=== PATIENT | female | born 1990 | race Caucasian/White ===

== ENCOUNTER 2017-07-30 05:30 | Outpatient (CLI) | payer OTHER ==
[~2017-07-30] VITALS: Ht 170.2 cm; Wt 81.2 kg
[~2017-07-30 05:30] MED LIST: ACHYD1T PO; DCS100C PO; HYDR-3720 PO; IBP800T PO; Ibuprofen PO; KETO-22 PO; NITR-65 PO; NITR100C3 PO; OXYC-109 PO; PRD20T PO; PREN1TAB64 PO; sprintec PO
[2017-07-30] MEDS ORDERED: METH2.5T PO (09:35)
[2017-07-30] MEDS ORDERED: FOLI1TAB24 PO (09:35)
== END 2017-07-30 15:09 ==
LOC: PREOP 05:30
PROVIDERS: ATTEND Otolaryngology Otolaryngology/Facial Plastic Surgery
DX: Z01.818 Encounter for other preprocedural examination (principal)

== ENCOUNTER 2017-08-06 06:44 | Day surgery (SDC) | payer OTHER ==
[~2017-08-06] VITALS: Ht 170.2 cm; Wt 81.2 kg
[~2017-08-06 06:44] MED LIST changes: +FOLI1TAB24 PO; +METH2.5T PO
[2017-08-06 07:00] VITALS: BP 132/86
[2017-08-06] MEDS: LACTATED RINGERS 1,000 ML IV PRN ×2 (07:15→09:27)
[2017-08-06 07:22] LABS: BASOPHILS % (AUTO) 0 % (0-10); EOSINOPHILS # (AUTO) 0.2 10^3/uL (0.0-0.3); EOSINOPHILS % (AUTO) 3 % (0-10); HEMATOCRIT 39 % (35-52); HEMOGLOBIN 13.4 G/DL (11.5-16.0); LYMPHOCYTES % (AUTO) 29 % (12-44); MEAN CORPUSCULAR HEMOGLOBIN 30 PG (25-34); MEAN CORPUSCULAR HGB CONC 35 G/DL (32-36); MEAN CORPUSCULAR VOLUME 86 FL (80-99); MEAN PLATELET VOLUME 9.8 FL (7.4-10.4); MONOCYTES # (AUTO) 0.5 X 10^3 (0.0-1.0); MONOCYTES % (AUTO) 8 % (0-12); NEUTROPHILS # (AUTO) 4.1 X 10^3 (1.8-7.8); NEUTROPHILS % (AUTO) 60 % (42-75); PLATELET COUNT 304 10^3/uL (130-400); RED BLOOD COUNT 4.53 10^6/uL (4.35-5.85); RED CELL DISTRIBUTION WIDTH 13.3 % (10.0-14.5); WHITE BLOOD COUNT 6.8 10^3/uL (4.3-11.0)
[2017-08-06] MEDS ORDERED: FAMOTIDINE 20MG/2ML IV (PEPCID) ONE (07:36)
[2017-08-06] MEDS ORDERED: FAMOTIDINE 20MG/2ML IV (PEPCID) IV ONE (07:45)
[2017-08-06] MEDS ORDERED: morphine INJ 10 MG/ML 1ML (SYR OR VIAL) ONE (07:56)
[2017-08-06] MEDS ORDERED: ONDANSETRON 4 MG/2 ML (SDV) Z0FRAN ONE (08:15)
[2017-08-06] MEDS ORDERED: proPOfol 200 MG/20 ML (DIPRIVAN) VIAL IV ONE (08:15)
[2017-08-06] MEDS ORDERED: DEXAMETHASONE 10 MG/ML (DECADRON) 1 ML VIAL ONE ×2 (08:15→08:18)
[2017-08-06] MEDS ORDERED: ROCURONIUM 50 MG/5 ML (ZEMURON) VIAL IV ONE (08:15)
[2017-08-06] MEDS ORDERED: LIDOCAINE PF 2% 5 ML (XYLOCAINE) VIAL ONE (08:15)
[2017-08-06] MEDS ORDERED: SEVOFLURANE (ULTANE) 15 ML INHAL SOLN ONE (08:15)
[2017-08-06] MEDS ORDERED: MIDAZOLAM 2 MG/2 ML (VERSED) VIAL ONE (08:16)
[2017-08-06] MEDS ORDERED: fentaNYL INJECTION 100 MCG/2 ML AMP ONE (08:16)
--- NOTE | 2017-08-06 08:22 | Progress Note-Pre Operative ---
Pre-Operative Progress Note H&P Reviewed The H&P was reviewed, patient examined and no changes noted. Date Seen by Provider: Aug 06, 2017 Time Seen by Provider: 08:00 Date H&P Reviewed: Aug 06, 2017 Time H&P Reviewed: 08:00 Pre-Operative Diagnosis: Rec Tons CONCHITA MANJARREZ MD Aug 06, 2017 8:22 am
[2017-08-06] MEDS ORDERED: NEOSTIGMINE (BLOXIVERZ ) 1 MG/1ML 10 ML VIAL ONE (08:45)
[2017-08-06] MEDS ORDERED: ONDANSETRON 4 MG/2 ML (SDV) Z0FRAN IVP PRN (08:45)
[2017-08-06] MEDS ORDERED: GLYCOPYRROLATE 0.2 MG/ML (ROBINUL) 2 ML VIAL ONE (08:45)
[2017-08-06] MEDS ORDERED: HYDROmorphone (DILAUDID) 2 MG/ML VIAL IVP PRN (08:45)
[2017-08-06] MEDS ORDERED: NS IV 1000 ML 1,000 ML IV SCH (08:52)
--- NOTE | 2017-08-06 08:52 | Progress Note-Post Operative ---
Post-Operative Progess Note Surgeon (s)/Registered Private Duty Nurse (s) Surgeon CONCHITA MANJARREZ MD Registered Private Duty Nurse n/a Pre-Operative Diagnosis Rec Tons Post-Operative Diagnosis same Post-Op Procedure Note Date of Procedure: Aug 06, 2017 Name of Procedure Performed: T/A Description & Findings Description and Findings: n/a Anesthesia Type get Estimated Blood Loss minimal Packing none. Specimen(s) collected/removed tonsils CONCHITA MANJARREZ MD Aug 06, 2017 8:52 am
[2017-08-06] MEDS ORDERED: APAP 325 MG/10.15 ML LIQ (TYLENOL) UDC PO PRN (09:00)
[2017-08-06] MEDS ORDERED: HYDROcodone/APAP 7.5MG-325 MG/15 ML (LORTAB) UDC PO PRN (09:00)
[2017-08-06] MEDS: morphine INJ 10 MG/ML 1ML (SYR OR VIAL) IVP PRN ×3 (09:11→09:21)
[2017-08-06 09:35] VITALS: BP 157/114
[2017-08-06 09:36] VITALS: BP 157/114
[2017-08-06 10:05] VITALS: BP 153/99
[2017-08-06 10:35] VITALS: BP 130/90
[2017-08-06] MEDS ORDERED: DEXAINTSOL PO (10:58)
[2017-08-06] MEDS ORDERED: AMOX250S5 PO (10:58)
[2017-08-06] MEDS ORDERED: TETRACAINESUCKERS MT (10:58)
[2017-08-06] MEDS ORDERED: HYDR15SO8 PO (11:00)
--- NOTE | 2017-08-06 14:18 | Anesthesia-General Post-Op ---
General Patient Condition Mental Status/LOC: Same as Preop Cardiovascular: Satisfactory Nausea/Vomiting: Absent Respiratory: Satisfactory Pain: Controlled Complications: Absent Post Op Complications Complications None Follow Up Care/Instructions Patient Instructions None needed. Anesthesia/Patient Condition Patient Condition Patient is doing well, no complaints, stable vital signs, no apparent adverse anesthesia problems. No complications reported per nursing. DENNISE ALEJANDRE CRNA Aug 06, 2017 14:18
== END 2017-08-06 11:40 | disposition home or self-care (01) ==
LOC: SDC 06:44
PROVIDERS: ATTEND Otolaryngology Otolaryngology/Facial Plastic Surgery
DX: J35.01 Chronic tonsillitis (principal); Z79.899 Other long term (current) drug therapy
CPT/HCPCS: 36415; 85025; 87081

== ENCOUNTER 2017-08-28 17:05 | Emergency (ER) | payer OTHER ==
[~2017-08-28] VITALS: Ht 167.6 cm; Wt 77.1 kg
[~2017-08-28 17:05] MED LIST changes: +AMOX250S5 PO; +DEXAINTSOL PO; +HYDR15SO8 PO; +TETRACAINESUCKERS MT
[2017-08-28] MEDS ORDERED: LACTATED RINGERS 1,000 ML IV ONE (18:05)
[2017-08-28] MEDS ORDERED: KETOROLAC 30 MG/ML VIAL IVP STA (18:05)
--- NOTE | 2017-08-28 18:12 | ED Abdominal Pain ---
General Chief Complaint: General Problems/Pain Stated Complaint: R SIDE PAIN Nursing Triage Note: PT REPORTS INTERMITTENT R SIDED PAIN JUST UNDER HER BREAST. Sepsis Screen: No Definite Risk Source of Information: Patient History of Present Illness Date Seen by Provider: Aug 28, 2017 Time Seen by Provider: 17:55 Initial Comments C/O RUQ / RIGHT LOWER RIB PAIN SINCE YESTERDAY STATES PAIN IS MILD DULL PAIN WITH INTERMITTENT SHARP STABBING PAINS STATES IT WOKE HER UP A COUPLE OF TIMES DURING THE NIGHT LAST NIGHT NOTHING WORSENS OR IMPROVES PAIN HAS NOT TAKEN ANYTHING FOR PAIN NO NAUSEA/VOMITING NORMAL BM IN LAST 24 HOURS NO URINARY SYMPTOMS NO FEVER NO COUGH/SHORTNESS OF BREATH/RESPIRATORY SYMPTOMS NO HISTORY OF SIMILAR LAST ATE AT 1400 TODAY--MEAT AND CHEESE DRANK TEA ON THE WAY HERE STATES HER BOSS TOLD HER TO "COME HERE AND GET HER GALLBLADDER CHECKED OUT" PCP: DR. DAVIS ENT: DR. MANJARREZ--HAD T&A 3 WEEKS AGO, AND HAD POST OP FOLLOW UP, NO COMPLICATIONS Allergies and Home Medications Allergies Coded Allergies: No Known Drug Allergies (Verified , 04/24/09) Home Medications Amoxicillin 250 Mg/5 Ml Susp, 2 TSP PO BID Prescribed by: CHRISS ROMERO on 08/06/17 1058 Dexamethasone 1 Mg/1 Ml Saira, 2 TSP PO DAILY PRN for PAIN Mix 4MG/2.5CC water Prescribed by: CHRISS ROMERO on 08/06/17 1058 Folic Acid 1 Mg Tablet, 1 MG PO DAILY, (Reported) Hydrocodone/Acetaminophen 15 Ml Solution, 2-3 TSP PO Q4H PRN for PAIN-MILD TO MODERATE 2-3 TSP EVERY 4 HOURS NEEDED FOR PAIN Prescribed by: CHRISS ROMERO on 08/06/17 1100 Hyoscyamine Sulfate 0.125 Mg Tab.subl, 1-2 TAB SL Q4H Prescribed by: BENJAMÍN NUNO on 08/28/171912 Pantoprazole Sodium 40 Mg Tablet.dr, 40 MG PO DAILY Prescribed by: BENJAMÍN NUNO on 08/28/171912 Sucralfate 1 Gm Tablet, 1 GM PO QIDACHS Prescribed by: BENJAMÍN NUNO on 08/28/171912 Tetracaine Sucker Ea, 1 EA MT UD PRN for PAIN Tetracain Suckers These suckers are custom made and require a prescription. Moisten the sucker first and then suck on it gently as far back in the mouth as possible for 2-3 days. You can repeadt it in about an hour. This will take the edge off but not completely numb the throat. Prescribed by: CHRISS ROMERO on 08/06/17 1058 Patient Home Medication List Home Medication List Reviewed: Yes Review of Systems Constitutional: no symptoms reported EENTM: No Symptoms Reported Respiratory: No Symptoms Reported Cardiovascular: No Symptoms Reported Gastrointestinal: See HPI, Abdominal Pain Genitourinary: No Symptoms Reported Musculoskeletal: no symptoms reported Skin: no symptoms reported Psychiatric/Neurological: No Symptoms Reported Endocrine: No Symptoms Reported Hematologic/Lymphatic: No Symptoms Reported Past Riqktlq-Ltqxmt-Xtukka Hx Patient Social History Alcohol Use: Occasionally Uses Recreational Drug Use: No Smoking Status: Never a Smoker 2nd Hand Smoke Exposure: No Recent Foreign Travel: No Contact w/Someone Who Travel: No Recent Infectious Disease Expo: No Recent Hopitalizations: No Immunizations Up To Date Tetanus Booster (TDap): Unknown PED Vaccines UTD: No Seasonal Allergies Seasonal Allergies: No Surgeries History of Surgeries: Yes (Csection x 2, D&C x2, Diag Lap with Lap appy, HYST/ BSO) Surgeries: Abdominal, Adenoidectomy, Appendectomy, Section, Hysterectomy, Oophorectomy, Tonsillectomy Respiratory History of Respiratory Disorde: No Cardiovascular History of Cardiac Disorders: No Neurological History of Neurological Disord: No Reproductive System Hx Reproductive Disorders: Yes Sexually Transmitted Disease: No Female Reproductive Disorders: Menstrual Problems, Endometriosis 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 RHEUMATOID ARTHRITIS) Musculoskeletal Disorders: Rheumatoid Arthritis Endocrine History of Endocrine Disorders: No HEENT History of HEENT Disorders: Yes HEENT Disorders: Tonsilitis Cancer History of Cancer: No Psychosocial History of Psychiatric Problem: No Integumentary History of Skin or Integumenta: No Blood Transfusions History of Blood Disorders: No Family Medical History Family Medial History: Alcoholism 19 FATHER Cardiovascular disease 19 MOTHER Completed stroke G8 BROTHER Dementia Diabetes mellitus G8 BROTHER Hypertension 19 FATHER 19 MOTHER G8 SISTER Thyroid disease 19 MOTHER G8 SISTER No Family History of: AIDS Alzheimer's disease Arthritis Asthma Colon cancer Congenital disease Kidney disease Myocardial infarction Prostate cancer Psychosocial problem Respiratory disorder Seizure disorder Severe allergy Physical Exam Vital Signs VS - Last 72 Hours, by Label 08/28/17 08/28/17 17:30 19:30 Temp 98.0 98.0 Pulse 82 73 Resp 16 16 B/P (MAP) 144/106 (119) 136/101 (119) Pulse Ox 98 98 O2 Delivery Room Air Capillary Refill : Less Than 3 Seconds General Appearance: WD/WN, no apparent distress, other (LAYING OUTSTRETCHED AND TEXTING, DOES NOT APPEAR TO BE IN ANY DISCOMFORT WHATSOEVER. WALKS UPRIGHT AND MOVES QUICKLY WITHOUT ANY DIFFICULTY) HEENT: PERRL/EOMI Neck: normal inspection Respiratory: normal breath sounds, no respiratory distress, no accessory muscle use Cardiovascular: normal peripheral pulses, regular rate, rhythm, no edema, no JVD, no murmur Gastrointestinal: normal bowel sounds, soft, no organomegaly, no pulsatile mass , No distended, No guarding, No rebound, tenderness (RUQ), No mass Extremities: normal range of motion, non-tender, normal inspection, no pedal edema, no calf tenderness, normal capillary refill Back: normal inspection, no CVA tenderness, no vertebral tenderness Neurologic/Psychiatric: manager progressive care II-XII nml as tested, no motor/sensory deficits, alert, normal mood/affect, oriented x 3 Skin: normal color, warm/dry, No rash Progress/Results/Core Measures Results/Orders Lab Results Laboratory Tests Test 08/28/17 18:20 Range/Units White Blood Count 8.6 4.3-11.0 10^3/uL Red Blood Count 4.13 L 4.35-5.85 10^6/uL Hemoglobin 12.1 11.5-16.0 G/DL Hematocrit 35 35-52 % Mean Corpuscular Volume 85 80-99 FL Mean Corpuscular Hemoglobin 29 25-34 PG Mean Corpuscular Hemoglobin Concent 35 32-36 G/DL Red Cell Distribution Width 12.6 10.0-14.5 % Platelet Count 310 130-400 10^3/uL Mean Platelet Volume 10.0 7.4-10.4 FL Neutrophils (%) (Auto) 57 42-75 % Lymphocytes (%) (Auto) 34 12-44 % Monocytes (%) (Auto) 7 0-12 % Eosinophils (%) (Auto) 2 0-10 % Basophils (%) (Auto) 0 0-10 % Neutrophils # (Auto) 4.9 1.8-7.8 X 10^3 Lymphocytes # (Auto) 2.9 1.0-4.0 X 10^3 Monocytes # (Auto) 0.6 0.0-1.0 X 10^3 Eosinophils # (Auto) 0.2 0.0-0.3 10^3/uL Basophils # (Auto) 0.0 0.0-0.1 10^3/uL Urine Color YELLOW Urine Clarity CLEAR Urine pH 7 5-9 Urine Specific [place] 1.010 L 1.016-1.022 Urine Protein NEGATIVE NEGATIVE Urine Glucose (UA) NEGATIVE NEGATIVE Urine Ketones NEGATIVE NEGATIVE Urine Nitrite NEGATIVE NEGATIVE Urine Bilirubin NEGATIVE NEGATIVE Urine Urobilinogen NORMAL NORMAL MG/DL Urine Leukocyte Esterase NEGATIVE NEGATIVE Urine RBC (Auto) NEGATIVE NEGATIVE Urine RBC NONE /HPF Urine WBC RARE /HPF Urine Squamous Epithelial Cells 5-10 /HPF Urine Crystals NONE /LPF Urine Bacteria MODERATE H /HPF Urine Casts NONE /LPF Urine Mucus NEGATIVE /LPF Urine Culture Indicated NO Sodium Level 140 135-145 MMOL/L Potassium Level 3.7 3.6-5.0 MMOL/L Chloride Level 105 98-107 MMOL/L Carbon Dioxide Level 28 21-32 MMOL/L Anion Gap 7 5-14 MMOL/L Blood Urea Nitrogen 11 7-18 MG/DL Creatinine 0.80 0.60-1.30 MG/DL Estimat Glomerular Filtration Rate > 60 BUN/Creatinine Ratio 14 Glucose Level 86 70-105 MG/DL Calcium Level 9.5 8.5-10.1 MG/DL Total Bilirubin 0.4 0.1-1.0 MG/DL Aspartate Amino Transf (AST/SGOT) 21 5-34 U/L Alanine Aminotransferase (ALT/SGPT) 20 0-55 U/L Alkaline Phosphatase 68 40-136 U/L Total Protein 6.9 6.4-8.2 GM/DL Albumin 4.1 3.2-4.5 GM/DL Amylase Level 62 25-125 U/L Lipase 17 8-78 U/L My Orders Orders - BENJAMÍN NUNO DO Saline Lock/Iv-Start (08/28/17 18:05) Amylase (08/28/17 18:05) Cbc With Automated Diff (08/28/17 18:05) Comprehensive Metabolic Panel (08/28/17 18:05) Lipase (08/28/17 18:05) Ct Abdomen/Pelvis W (08/28/17 18:05) Saline Lock/Iv-Start (08/28/17 18:05) Lactated Ringers (Lr 1000 Ml Iv Solution (08/28/17 18:05) Ketorolac Injection (Toradol Injection) (08/28/17 18:05) Iohexol Injection (Omnipaque 350 Mg/Ml 1 (08/28/17 18:30) Sodium Chloride Flush (Catheter Flush Sy (08/28/17 18:30) Ns (Ivpb) (Sodium Chloride 0.9%) (08/28/17 18:30) Pharmacy Communication (Pharmacy Communi (08/28/17 18:19) Ua Culture If Indicated (08/28/17 18:31) Chest Pa/Lat (2 View) (08/28/17 18:48) Medications Given in ED Current Medications Medications Dose Ordered Sig/Mathew Route Start Time Stop Time Status Last Admin Dose Admin Iohexol 100 ml ONCE ONCE IV 08/28/17 18:30 08/28/17 18:31 DC 18 18:49 100 ML Lactated Ringer's 1,000 ml @ 0 mls/hr Q0M ONCE IV 08/28/17 18:05 08/28/17 18:07 DC 08/28/17 18:00 0 MLS/HR Sodium Chloride 10 ml NEEDED PRN IV 08/28/17 18:30 08/28/17 19:31 DC 18 18:49 10 ML Sodium Chloride 250 ml ONCE ONCE IV 08/28/17 18:30 18 18:31 DC 18 18:49 80 ML Vital Signs/I&O Vital Sign - Last 12Hours 08/28/17 08/28/17 17:30 19:30 Temp 98.0 98.0 Pulse 82 73 Resp 16 16 B/P (MAP) 144/106 (119) 136/101 (119) Pulse Ox 98 98 O2 Delivery Room Air Blood Pressure Mean: 119 Diagnostic Imaging Comments CXR--NO ACUTE PROCESS CT ABDOMEN/PELVIS--SLIGHT THICKENING OF GASTRIC ANTRUM AND DUODENUM--POSSIBLE ENTERITIS VS CONTRACTION Departure Impression Impression: Primary Impression: RUQ pain Additional Impression: POSSIBLE ENTERITIS Disposition: 01 HOME, SELF-CARE Condition: Stable Departure-Patient Inst. Referrals: PHILLIP DAVIS MD (PCP/Family) Primary Care Physician Patient Instructions: Acute Abdomen (Belly Pain), Adult (DC), Gastritis (DC), Viral Gastroenteritis, Adult (DC) Add. Discharge Instructions: CLEAR LIQUIDS---WATER, BROTH, JELLO, GATORADE BRATS DIET--BANANAS, RICE, APPLESAUCE, TOAST, SALTINES FOLLOW UP WITH YOUR DR IN 3-5 DAYS FOR FURTHER CARE All discharge instructions reviewed with patient and/or family. Voiced understanding. Scripts Hyoscyamine Sulfate (Levsin-Sl) 0.125 Mg Tab.subl 1-2 TAB SL Q4H for Abdominal Pain, #15 TAB Prov: BENJAMÍN NUNO DO 08/28/17 Sucralfate (Carafate) 1 Gm Tablet 1 GM PO QIDACHS, #60 TAB Prov: BENJAMÍN NUNO DO 08/28/17 Pantoprazole Sodium (Protonix) 40 Mg Tablet.dr 40 MG PO DAILY, #15 TAB Prov: BENJAMÍN NUNO DO 08/28/17 BENJAMÍN NUNO DO Aug 28, 2017 18:12
[2017-08-28] MEDS ORDERED: NS 250 ML (IVPB) BAG IV ONE (18:30)
[2017-08-28] MEDS ORDERED: CATHETER FLUSH 10 ML SYR IV PRN (18:30)
[2017-08-28] MEDS ORDERED: IOHEXOL 350 MG/ML 100 ML (OMNIPAQUE 350) VIAL IV ONE (18:30)
[2017-08-28 18:34] LABS: BASOPHILS % (AUTO) 0 % (0-10); EOSINOPHILS # (AUTO) 0.2 10^3/uL (0.0-0.3); EOSINOPHILS % (AUTO) 2 % (0-10); HEMATOCRIT 35 % (35-52); HEMOGLOBIN 12.1 G/DL (11.5-16.0); LYMPHOCYTES # (AUTO) 2.9 X 10^3 (1.0-4.0); LYMPHOCYTES % (AUTO) 34 % (12-44); MEAN CORPUSCULAR HEMOGLOBIN 29 PG (25-34); MEAN CORPUSCULAR HGB CONC 35 G/DL (32-36); MEAN CORPUSCULAR VOLUME 85 FL (80-99); MONOCYTES # (AUTO) 0.6 X 10^3 (0.0-1.0); MONOCYTES % (AUTO) 7 % (0-12); NEUTROPHILS # (AUTO) 4.9 X 10^3 (1.8-7.8); NEUTROPHILS % (AUTO) 57 % (42-75); PLATELET COUNT 310 10^3/uL (130-400); RED BLOOD COUNT 4.13 10^6/uL (4.35-5.85); RED CELL DISTRIBUTION WIDTH 12.6 % (10.0-14.5); WHITE BLOOD COUNT 8.6 10^3/uL (4.3-11.0)
[2017-08-28 18:36] LABS: BILIRUBIN,URINE NEGATIVE (NEGATIVE); CLARITY,URINE CLEAR; COLOR,URINE YELLOW; GLUCOSE, URINE (UA) NEGATIVE (NEGATIVE); KETONES,URINE NEGATIVE (NEGATIVE); LEUKOCYTE ESTERASE ,URINE NEGATIVE (NEGATIVE); NITRITE,URINE NEGATIVE (NEGATIVE); PH,URINE 7 (5-9); PROTEIN,URINE NEGATIVE (NEGATIVE); UROBILINOGEN,URINE NORMAL (NORMAL)
[2017-08-28 18:45] LABS: BACTERIA,URINE MODERATE /HPF; WBC,URINE RARE /HPF
[2017-08-28 18:57] LABS: ALANINE AMINOTRANSFERASE 20 U/L (0-55); ALBUMIN 4.1 GM/DL (3.2-4.5); ALKALINE PHOSPHATASE 68 U/L (40-136); AMYLASE 62 U/L (25-125); BILIRUBIN,TOTAL 0.4 MG/DL (0.1-1.0); BUN/CREATININE RATIO 14; CALCIUM 9.5 MG/DL (8.5-10.1); CARBON DIOXIDE 28 MMOL/L (21-32); CHLORIDE 105 MMOL/L (98-107); GFR ESTIMATED > 60; GLUCOSE 86 MG/DL (70-105); LIPASE 17 U/L (8-78); POTASSIUM 3.7 MMOL/L (3.6-5.0); SODIUM 140 MMOL/L (135-145); TOTAL PROTEIN 6.9 GM/DL (6.4-8.2)
--- NOTE | 2017-08-28 19:01 | Diagnostic Imaging Report ---
CLINICAL INDICATION: Patient with right upper quadrant pain just below ribs, worsening since yesterday. No chest complaints. EXAM: Chest x-ray PA and lateral views. COMPARISONS: Chest x-ray dated 12/08/2007. FINDINGS: Lungs/pleura: Lungs are clear. There is no pneumothorax. There is no pleural effusion. Mediastinum: Unremarkable. Pulmonary vasculature: Unremarkable. Heart: Unremarkable. Bones/extrathoracic soft tissue: Unremarkable. IMPRESSION: There is no radiographic evidence of acute cardiopulmonary process. Dictated by: Dictated on workstation # [id number]
--- NOTE | 2017-08-28 19:03 | Diagnostic Imaging Report ---
CLINICAL INDICATION: Patient with right upper quadrant pain, worsening since Thursday. Patient has surgical history of hysterectomy, appendectomy, and breast implants. EXAM: CT exam of the abdomen and pelvis is performed with 100 cc of Omnipaque 350 IV contrast. Coronal and sagittal reformatted images are created. COMPARISONS: None. FINDINGS: Visualized lung bases: Unremarkable. Liver: Unremarkable. Gallbladder: Unremarkable. Pancreas: Unremarkable. Spleen: Unremarkable. Adrenal glands: Unremarkable. Kidneys/ ureters: Unremarkable. Aorta: Unremarkable. Intraabdominal/ retroperitoneal contents: Unremarkable. Intestines: There is interval development of bowel wall thickening in the region of the gastric antrum and duodenal C-loop, predominantly in the second portion. These findings are nonspecific and may be related to contraction, but antritis or duodenitis cannot be completely excluded. Appendix: Appendectomy changes are seen. Bladder: Unremarkable. Pelvic organs: Uterus is surgically resected. Extra abdominal/ pelvis regions: Bilateral breast implants are seen. Abdominal wall: Unremarkable. Bones: Unremarkable. IMPRESSION: 1: There is interval bowel wall thickening involving the gastric antrum and duodenal C-loop with the second portion affected the most. These findings may be related to contraction, but antritis or duodenitis cannot be completely excluded. 2: Otherwise, there is no CT evidence of acute abdominal or pelvic process. Dictated by: Dictated on workstation # [id number]
[2017-08-28] MEDS ORDERED: HYOS0.1283 SL (19:13)
[2017-08-28] MEDS ORDERED: PANT40TA2 PO (19:13)
[2017-08-28] MEDS ORDERED: SUCR1TAB36 PO (19:13)
[2017-08-28 19:30] VITALS: BP 136/101
== END 2017-08-28 19:31 | disposition home or self-care (01) ==
LOC: EDUNIT# 17:05 → ER 17:06
DX: R10.11 Right upper quadrant pain (principal); M06.9 Rheumatoid arthritis, unspecified; Z90.710 Acquired absence of both cervix and uterus; Z90.49 Acquired absence of other specified parts of digestive tract; Z87.59 Personal history of other complications of pregnancy, childbirth and the puerperium; Z90.89 Acquired absence of other organs
CPT/HCPCS: 36415; 71046; 74177; 80053; 81000; 82150; 83690; 85025

== ENCOUNTER 2018-06-16 23:15 | Emergency (ER) | payer OTHER ==
[~2018-06-16] VITALS: Ht 170.2 cm; Wt 83.0 kg
[~2018-06-16 23:15] MED LIST changes: +HYOS0.1283 SL; -METH2.5T PO; +MTX2.5T PO; +PANT40TA2 PO; +SUCR1TAB36 PO
--- OUTSIDE RECORDS SUMMARY | 2018-06-16 23:29 | XMS REPORT | CCD ---
Author Author [facility] Address [address] [place] [address] Phone Care Team Providers Care Oil Pumper Name Role Phone PP Unavailable CCM Unavailable Summary Purpose Interface Exchange Insurance Providers Payer name Policy type / Coverage type Covered libertarian ID Effective Begin Date Effective End Date [employer] (2012 THRU) Mian [id number] Unknown Unknown Family history Sister Diagnosis Age At Onset Hypertension Unknown Son Diagnosis Age At Onset No Family Disease Entered N/A Son Diagnosis Age At Onset No Family Disease Entered N/A Father Diagnosis Age At Onset Hypertension Unknown Alcohol use disorders Unknown Brother Diagnosis Age At Onset Diabetes mellitus Type 1 Unknown Mother Diagnosis Age At Onset No Family Disease Entered N/A Social History Social History Element Codes Description Effective Dates Marital status Unknown 07/15/[address]: 952107980 Never smoker 07/15/2013 Alcohol history Unknown occasionally drinks alcohol 07/15/2013 Has the patient ever used illegal drugs? 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 ICD-9: 446.4 ICD-10: M31.30 Active 07/06/2016 Unknown Dyshidrosis [pompholyx] ICD-9: 705.81 ICD-10: L30.1 Active 10/23/2017 Unknown Inflammatory polyarthropathy ICD-9: 714.9 ICD-10: M06.4 Active 10/23/2017 Unknown Localized edema ICD-9 : 782.3 ICD-10: R60.0 Active 10/23/2017 Unknown Body mass index (BMI) 31.0-31.9, adult ICD-9: V85.31 ICD-10: Z68.31 Active 08/30/2015 Unknown Iron deficiency anemia, unspecified ICD-9: 280.9 ICD-10: D50.9 Active 07/06/2016 Unknown Other fatigue ICD-9: 780.79 ICD-10: R53.83 Active 02/03/2016 Unknown Rash and other nonspecific skin eruption ICD-9: 782.1 ICD-10: R21 Active 04/20/2016 Unknown Acute laryngopharyngitis ICD-9: 465.0 ICD-10: J06.0 Active 04/08/2017 Unknown Other allergic rhinitis ICD-9: 477.8 ICD-10: J30.89 Active 04/08/2017 Unknown Streptococcal pharyngitis ICD-9: 034.0 ICD-10: J02.0 Active 08/25/2016 Unknown Major depressive disorder, single episode, moderate ICD-9: 296.22 ICD-10: F32.1 Active 07/06/2016 Unknown Symptomatic postprocedural ovarian failure ICD-9: 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.4 ICD-10: E89.41 Active 07/06/2016 Unknown Other insomnia ICD-9: 327.09 ICD-10: G47.09 Active 02/03/2016 Unknown Major depressive disorder, single episode, unspecified ICD-9: 311 ICD-10: F32.9 Active 12/03/2015 Unknown Symptomatic postprocedural ovarian failure ICD-9: 256.2 ICD-10: E89.41 Active 01/14/2015 Unknown Left knee pain ICD-9: 719.46 Active 03/11/2015 Unknown Depression Unknown Active 01/15/2015 Unknown Abnormal weight gain ICD-9: 783.1 Active 01/14/2015 Unknown Depression ICD-9: 311 Active 01/14/2015 Unknown Fatigue ICD-9: 780.79 Active 01/14/2015 Unknown Premature 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 ICD-9: 256.2 Active 2014 Unknown CELLULITIS OF FACE ICD -9: 682.0 Active 02/21/2014 Unknown Rash ICD-9: 782.1 Active 02/21/2014 Unknown Inflamed skin tag ICD- 9: 701.9 Active 11/15/2013 Unknown Dyshidrotic eczema ICD -9: 705.81 Active 11/10/2013 Unknown ACUTE URI ICD-9: 465.9 Active 07/15/2013 Unknown Problems Condition Codes Effective Dates Condition Status 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 ICD-9: 446.4 ICD-10: M31.30 07/06/2016 Active Dyshidrosis [pompholyx] ICD-9: 705.81 ICD-10: L30.1 10/23/2017 Active Inflammatory polyarthropathy ICD-9: 714.9 ICD-10: M06.4 10/23/2017 Active Localized edema ICD-9 : 782.3 ICD-10: R60.0 10/23/2017 Active Body mass index (BMI) 31.0-31.9, adult ICD-9: V85.31 ICD-10: Z68.31 08/30/2015 Active Iron deficiency anemia, unspecified ICD-9: 280.9 ICD-10: D50.9 07/06/2016 Active Other fatigue ICD-9: 780.79 ICD-10: R53.83 02/03/2016 Active Rash and other nonspecific skin eruption ICD-9: 782.1 ICD-10: R21 04/20/2016 Active Acute laryngopharyngitis ICD-9: 465.0 ICD-10: J06.0 04/08/2017 Active Other allergic rhinitis ICD-9: 477.8 ICD-10: J30.89 04/08/2017 Active Streptococcal pharyngitis ICD-9: 034.0 ICD-10: J02.0 08/25/2016 Active Major depressive disorder, single episode, moderate ICD-9: 296.22 ICD-10: F32.1 07/06/2016 Active Symptomatic postprocedural ovarian failure ICD-9: 627.4 ICD-10: E89.41 07/06/2016 Active Other insomnia ICD-9: 327.09 ICD-10: G47.09 02/03/2016 Active Major depressive disorder, single episode, unspecified ICD-9: 311 ICD-10: F32.9 12/03/2015 Active Symptomatic postprocedural ovarian failure ICD-9: 256.2 ICD-10: E89.41 01/14/2015 Active Left knee pain ICD-9: 719.46 03/11/2015 Active Depression Unknown 01/15/2015 Active Abnormal weight gain ICD-9: 783.1 01/14/2015 Active Depression ICD-9: 311 01/14/2015 Active Fatigue ICD-9: 780.79 01/14/2015 Active Premature 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 ICD-9: 256.2 01/14/2015 Active CELLULITIS OF FACE ICD -9: 682.0 02/21/2014 Active Rash ICD-9: 782.1 02/21/2014 Active Inflamed skin tag ICD- 9: 701.9 11/15/2013 Active Dyshidrotic eczema ICD -9: 705.81 11/10/2013 Active ACUTE URI ICD-9: 465.9 07/15/2013 Active Medications Medication Codes Instructions Start Date Stop Date Status Fill Instructions hydrochlorothiazide 25 mg tablet RxNorm: 351536 1 Tablet(s) PO QDAY PRN 10/30/2017 No Stop Date Active betamethasone dipropionate 0.05 % topical cream RxNorm: 718489 1 Application TOP BID 10/23/2017 11/01/2017 Inactive methotrexate sodium 2.5 mg tablet RxNorm: 075507 6 Tablet(s) PO QW TAKE 6 TABLETS EVERY WEEK ON Thursday07/06/20172018 Active folic acid 1 mg tablet RxNorm: 128738 1 Tablet(s) PO daily 06/30/2018 Active Sprintec (28) 0.25 mg-35 mcg tablet RxNorm: 175151 1 Tablet(s) PO daily 06/17/2017 10/14/2017 Inactive phentermine 37.5 mg tablet RxNorm: 100932 Tablet(s) 1 tab AM and 1/2 tab noon PO 05/14/2017 No Stop Date Active Keflex 500 mg capsule RxNorm: 477545 1 Capsule(s) PO TID 201605/13/2017 Inactive Keflex 500 mg capsule RxNorm: 838902 1 Capsule(s) PO TID 201605/05/2017 Inactive Zithromax Z-Shai 250 mg tablet RxNorm: 915453 1 Tablet(s) PO UD 04/08/2017 05/13/2017 Inactive methotrexate sodium 2.5 mg tablet RxNorm: 022146 TAKE 6 TABLETS EVERY WEEK ON Thursday11/03/2016 05/13/2017 Inactive amoxicillin 500 mg tablet RxNorm: 820446 1 Tablet(s) PO BID 09/03/2016 Inactive Wellbutrin SR 150 mg tablet,sustained-release RxNorm: 050161 1 Tablet(s) PO BID TAKE ONE TABLET BY MOUTH TWICE DAILY 07/07/2016 05/13/2017 Inactive ferrous sulfate 325 mg (65 mg iron) tablet RxNorm: 065775 1 Tablet(s) PO daily TAKE ONE TABLET BY MOUTH ONCE DAILY 07/07/2016 05/13/2017 Inactive methotrexate sodium 2.5 mg tablet RxNorm: 473149 6 Tablet(s) PO QW on Thursday07/07/2016 11/02/2016 Inactive Wellbutrin SR 150 mg tablet,sustained-release RxNorm: 740664 TAKE ONE TABLET BY MOUTH TWICE DAILY 06/10/2016 07/06/2016 Inactive ferrous sulfate 325 mg (65 mg iron) tablet RxNorm: 636514 TAKE ONE TABLET BY MOUTH ONCE DAILY 06/06/2016 07/06/2016 Inactive betamethasone valerate 0.1 % topical cream RxNorm: 306943 1 Application TOP BID 04/21/2016 05/13/2017 Inactive ketoconazole 2 % topical cream RxNorm: 293008 1 Application TOP BID 04/21/2016 05/13/2017 Inactive Wellbutrin SR 150 mg tablet,sustained-release RxNorm: 261861 TAKE ONE TABLET BY MOUTH TWICE DAILY 03/11/2016 04/09/2016 Inactive betamethasone valerate 0.1 % topical cream RxNorm: 375760 1 Application TOP BID 02/27/2016 04/20/2016 Inactive Premarin 0.625 mg tablet RxNorm: 322255 1 Tablet(s) PO daily 02/03/2016 Inactive ferrous sulfate 325 mg (65 mg iron) tablet RxNorm: 283886 1 Tablet(s) PO daily 12/31/2015 04/28/2016 Inactive folic acid 1 mg tablet RxNorm: 529775 1 Tablet(s) PO daily 05/13/2017 Inactive Wellbutrin SR 150 mg tablet,sustained-release RxNorm: 902312 1 Tablet(s) PO BID 12/31/2015 01/29/2016 Inactive triamcinolone acetonide 0.025 % topical cream RxNorm: 8285372 1 Application TOP BID 12/04/2015 05/13/2017 Inactive Topamax 25 mg tablet RxNorm: 790751 1 Tablet(s) PO QHS x 7 days, then notify clinic with how symptoms are 11/05/2015 Inactive Wellbutrin SR 150 mg tablet,sustained-release RxNorm: 389444 1 Tablet(s) PO BID 11/01/2015 11/29/2015 Inactive Topamax 25 mg tablet RxNorm: 345605 1 Tablet(s) PO QHS x 7 days, then notify clinic with how symptoms are 09/26/2015 Inactive ferrous sulfate 325 mg (65 mg iron) tablet RxNorm: 976211 1 Tablet(s) PO daily 09/26/2015 12/30/2015 Inactive Topamax 25 mg tablet RxNorm: 608651 1 Tablet(s) PO daily 201509/25/2015 Inactive Belviq 10 mg tablet RxNorm: 8689858 1 Tablet(s) PO BID 201512/03/2015 Inactive Deplin (algal oil) 15 mg-90.314 mg capsule RxNorm: 1 Capsule(s) PO daily 08/31/2015 12/30/2015 Inactive Wellbutrin 75 mg tablet RxNorm: 333499 1 Tablet(s) PO BID 08/3008/30/2015 Inactive Wellbutrin 75 mg tablet RxNorm: 657558 1 Tablet(s) PO BID 08/3010/31/2015 Inactive methotrexate sodium 2.5 mg tablet RxNorm: 962269 6 Tablet(s) PO QW on Thursday08/22/2015 07/06/2016 Inactive folic acid 1 mg tablet RxNorm: 758310 1 Tablet(s) PO daily 02/201608/30/2015 Inactive ferrous sulfate 325 mg (65 mg iron) tablet RxNorm: 979006 1 Tablet(s) PO daily 08/22/2015 09/25/2015 Inactive folic acid 1 mg tablet RxNorm: 393352 1 Tablet(s) PO daily 02/201608/21/2015 Inactive prednisone 5 mg tablet RxNorm: 133346 1 Tablet(s) PO daily 02/201602/03/2016 Inactive Voltaren 1 % topical gel RxNorm: 326080 2 Gram(s) TOP QID to hands, elbows, knees 07/27/2015 08/25/2015 Inactive ferrous sulfate 325 mg (65 mg iron) tablet RxNorm: 517312 1 Tablet(s) PO daily 07/23/2015 08/21/2015 Inactive ferrous sulfate 325 mg (65 mg iron) tablet RxNorm: 742359 1 Tablet(s) PO daily 05/25/2015 07/22/2015 Inactive prednisone 10 mg tablet RxNorm: 595549 1 Tablet(s) PO UD 201406/07/2015 Inactive 10mg PO daily for 2 weeks, then 5mg PO daily for 2 weeks prednisone 10 mg tablet RxNorm: 749847 1 Tablet(s) PO UD 201405/10/2015 Inactive 10mg PO daily for 2 weeks, then 5mg PO daily for 2 weeks prednisone 20 mg tablet RxNorm: 825360 1 Tablet(s) PO UD 201405/11/2015 Inactive prednisone 20mg daily x 2 days and then 1/2 tab daily x 2 days and then 1/2 QOD x 2 days then stop ferrous sulfate 325 mg (65 mg iron) tablet RxNorm: 391621 1 Tablet(s) PO daily 04/23/2015 04/22/2015 Inactive prednisone 20 mg tablet RxNorm: 210609 1 Tablet(s) PO UD 201404/22/2015 Inactive 3 tab daily x 3 days, 2 tab daily x 3 day, 1 tab daily x 3 days, 1/2 tab daily x 3 days, 1/2 tab every other day x 3 doses then stop ferrous sulfate 325 mg (65 mg iron) tablet RxNorm: 256419 1 Tablet(s) PO daily 04/23/2015 05/24/2015 Inactive prednisone 20 mg tablet RxNorm: 274345 1 Tablet(s) PO UD 201404/26/2015 Inactive 3 tab daily x 3 days, 2 tab daily x 3 day, 1 tab daily x 3 days, 1/2 tab daily x 3 days, 1/2 tab every other day x 3 doses then stop Wellbutrin 75 mg tablet RxNorm: 878170 1 Tablet(s) PO BID 02/0804/18/2015 Inactive Wellbutrin 75 mg tablet RxNorm: 964543 1 Tablet(s) PO BID 02/0802/07/2015 Inactive mupirocin 2 % topical ointment RxNorm: 033264 1 Application TOP TID apply to rash on face 02/21/2014 03/02/2014 Inactive [SAVINGS FOR UNINSURED PATIENTS -- BIN: [id number], PCN: [id number], Group: [id number], ID# [id number], Process claim through [employer] , for questions: . THIS IS NOT INSURANCE.] sulfamethoxazole 800 mg-trimethoprim 160 mg tablet RxNorm: 401872 1 Tablet(s) PO BID 02/21/2014 03/02/2014 Inactive [SAVINGS FOR UNINSURED PATIENTS -- BIN:[id number], PCN: ASPROD1, Group: [id number], ID# [id number], Process claim through [employer], for questions: . THIS IS NOT INSURANCE.] Bactrim DS 800 mg-160 mg tablet RxNorm: 522431 1 Tablet(s) PO BID 11/15/2013 11/21/2013 Inactive triamcinolone acetonide 0.1 % topical cream RxNorm: 7092671 1 Application TOP BID 11/10/2013 11/19/2013 Inactive amoxicillin 500 mg tablet RxNorm: 441396 1 Tablet(s) PO TID 07/14/2013 Inactive amoxicillin 500 mg tablet RxNorm: 633228 1 Tablet(s) PO TID 07/24/2013 Inactive hydrochlorothiazide 25 mg tablet RxNorm: 684630 1 Tablet(s) PO QDAY PRN No Start Date 10/29/2017 Inactive diclofenac sodium 75 mg tablet,delayed release RxNorm: 097082 1 Tablet(s) PO BID No Start Date 07/26/2015 Inactive Zithromax Z-Shai 250 mg tablet RxNorm: 287507 Tablet(s) PO No Start Date 09/25/2015 Inactive phentermine 37.5 mg capsule RxNorm: 104713 1 Capsule(s) PO daily No Start Date 05/13/2017 Inactive Premarin 0.625 mg tablet RxNorm: 470043 1 Tablet(s) PO daily No Start Date 01/07/2016 Inactive Wellbutrin SR 150 mg tablet,sustained-release RxNorm: 682479 1 Tablet(s) PO BID No Start Date 12/30/2015 Inactive Sprintec (28) 0.25 mg-35 mcg tablet RxNorm: 032135 1 Tablet(s) PO daily No Start Date 04/18/2015 Inactive methotrexate sodium 2.5 mg tablet RxNorm: 165145 6 Tablet(s) PO QW on Thursday No Start Date 08/21/2015 Inactive Medication Administered No Medication Administered data Immunizations Vaccine Codes Date Status PPD Unknown 03/12/2015 completed Influenza CVX: 141 07/15/2013 completed Assessments Condition Codes Effective Dates 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 ICD-10: M31.30 ICD-9: 446.4 01/29/2018 Dyshidrosis [pompholyx] ICD-10: L30.1 ICD-9: 705.81 10/23/2017 Localized edema ICD-10: R60.0 ICD-9: 782.3 10/23/2017 Inflammatory polyarthropathy ICD-10: M06.4 ICD-9: 714.9 10/23/2017 Body mass index (BMI) 31.0-31.9, adult ICD-10: Z68.31 ICD-9: V85.31 07/06/2017 Iron deficiency anemia, unspecified ICD-10: D50.9 ICD-9: 280.9 05/14/2017 Other fatigue ICD-10: R53.83 ICD-9: 780.79 05/14/2017 Rash and other nonspecific skin eruption ICD-10: R21 ICD-9: 782.1 05/14/2017 Other allergic rhinitis ICD-10: J30.89 ICD-9: 477.8 04/08/2017 Acute laryngopharyngitis ICD-10: J06.0 ICD-9: 465.0 04/08/2017 Streptococcal pharyngitis ICD-10: J02.0 ICD-9: 034.0 08/25/2016 Symptomatic postprocedural ovarian failure ICD-10: E89.41 ICD-9: 627.4 07/07/2016 Major depressive disorder, single episode, moderate ICD-10: F32.1 ICD-9: 296.22 07/07/2016 Other insomnia ICD-10: G47.09 ICD-9: 327.09 02/04/2016 Major depressive disorder, single episode, unspecified ICD- 10: F32.9 ICD-9: 311 12/04/2015 Symptomatic postprocedural ovarian failure ICD-10: E89.41 ICD-9: 256.2 07/27/2015 Pain in unspecified joint ICD-10: M25.50 ICD-9: 719.49 07/27/2015 Effusion, unspecified joint ICD-10: M25.40 ICD-9: 719.09 07/27/2015 Left knee pain ICD-9: 719.46 03/12/2015 Premature 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 ICD-9: 256.2 01/15/2015 Fatigue ICD-9: 780.79 01/15/2015 Abnormal weight gain ICD-9: 783.1 2014 Depression ICD-9: 311 01/15/2015 Rash ICD-9: 782.1 02/21/2014 CELLULITIS OF FACE ICD-9: 682.0 2013 Inflamed skin tag ICD-9: 701.9 2013 Dyshidrotic eczema ICD-9: 705.81 2013 ACUTE URI ICD-9: 465.9 11/10/2013 Reason For Visit Reason For Visit Effective Dates Notes edema 10/23/2017 depression 05/14/2017 sore throat 04/08/2017 sore throat 08/25/2016 medication follow up 07/07/2016 rash 04/21/2016 rash 02/27/2016 depression 02/04/2016 depression 12/04/2015 depression 11/01/2015 depression 08/31/2015 edema 07/27/2015 edema 04/19/2015 knee pain 03/12/2015 weight gain/obesity 01/15/2015 rash 02/21/2014 bilat wrists and forehead acrochordon (skin tags) 11/15/2013 rash 11/10/2013 sore throat 07/15/2013 Results Observation Observation Code Item Item Code Result Date Cbc With Differential Ord2 WBC 6.14 K/ul 01/29/2018 Cbc With Differential Ord2 RBC 4.16 M/ul 01/29/2018 Cbc With Differential Ord2 HGB 12.0 g/dl 01/29/2018 Cbc With Differential Ord2 Neut% 63.0 % 01/29/2018 Cbc With Differential Ord2 HCT 36.5 % 01/29/2018 Cbc With Differential Ord2 MCV 87.7 fl 01/29/2018 Cbc With Differential Ord2 Lymph% 27.2 % 01/29/2018 Cbc With Differential Ord2 MCH 28.8 pg 01/29/2018 Cbc With Differential Ord2 [place]% 6.0 % 01/29/2018 Cbc With Differential Ord2 MCHC 32.9 pg 01/29/2018 Cbc With Differential Ord2 Eos% 3.6 % 01/29/2018 Cbc With Differential Ord2 PLT 307 K/ul 01/29/2018 Cbc With Differential Ord2 Baso% 0.2 % 01/29/2018 Cbc With Differential Ord2 RDW 13.7 % 01/29/2018 Cbc With Differential Ord2 Neut ABS# 3.87 K/ul 01/29/2018 Cbc With Differential Ord2 Lymph ABS# 1.67 K/ul 01/29/2018 Cbc With Differential Ord2 [place] ABS# 0.4 K/ul 01/29/2018 Cbc With Differential Ord2 Eos ABS# 0.2 K/ul 01/29/2018 Cbc With Differential Ord2 Baso ABS# 0.0 K/ul 01/29/2018 Tsh Ord6 TSH (3rd IS) 1.88 uIU/mL 01/29/2018 Comp Metabolic Scp749 NA 141 mEq/L 01/29/2018 Comp Metabolic Bhn280 K 4.2 mEq/L 01/29/2018 Comp Metabolic Laq901 CL 105 mEq/L 01/29/2018 Comp Metabolic Xmd410 CO2 30.0 mEq/L 01/29/2018 Comp Metabolic Jnl117 ANION GAP 10 01/29/2018 Comp Metabolic Vcv719 GLUCOSE 97 mg/dL 01/29/2018 Comp Metabolic Lbn354 Creat 0.6 mg/dL 01/29/2018 Comp Metabolic Yzx918 eGFR 128 ml/min/1.73m2 01/29/2018 Comp Metabolic Ufg827 BUN 13 mg/dL 01/29/2018 Comp Metabolic Jha306 B/C Ratio 22.0 Ratio 01/29/2018 Comp Metabolic Fjh423 CALCIUM 9.5 mg/dL 01/29/2018 Comp Metabolic Dng740 ALK PHOS 61 U/L 01/29/2018 Comp Metabolic Lek612 AST(SGOT) 14 U/L 01/29/2018 Comp Metabolic Tpl485 ALT(SGPT) 13 U/L 01/29/2018 Comp Metabolic Rci730 BILI T 0.5 mg/dL 01/29/2018 Comp Metabolic Cyk055 ALBUMIN 4.3 g/dL 01/29/2018 Comp Metabolic Fkl892 TPRO 6.8 g/dL 01/29/2018 Comp Metabolic Tvb918 GLOB 2.5 g/dL 01/29/2018 Comp Metabolic Gpc096 A/G Ratio 1.8 Ratio 01/29/2018 Comp Metabolic Qcg069 Osmo 281 mOsmo 01/29/2018 C-Reactive Protein Qnt Crqnt CRP 0.2 mg/dl 01/29/2018 Sed Rate Ord21 ESR 11 mm/hr 01/29/2018 Cbc With Differential Ord2 WBC 9.52 K/ul 10/23/2017 Cbc With Differential Ord2 RBC 4.52 M/ul 10/23/2017 Cbc With Differential Ord2 HGB 13.3 g/dl 10/23/2017 Cbc With Differential Ord2 HCT 39.6 % 10/23/2017 Cbc With Differential Ord2 Neut% 75.4 % 10/23/2017 Cbc With Differential Ord2 MCV 87.6 fl 10/23/2017 Cbc With Differential Ord2 Lymph% 18.3 % 10/23/2017 Cbc With Differential Ord2 [place]% 4.9 % 10/23/2017 Cbc With Differential Ord2 MCH 29.4 pg 10/23/2017 Cbc With Differential Ord2 Eos% 1.4 % 10/23/2017 Cbc With Differential Ord2 MCHC 33.6 pg 10/23/2017 Cbc With Differential Ord2 PLT 372 K/ul 10/23/2017 Cbc With Differential Ord2 Baso% 0.0 % 10/23/2017 Cbc With Differential Ord2 Neut ABS# 7.18 K/ul 10/23/2017 Cbc With Differential Ord2 RDW 14.2 % 10/23/2017 Cbc With Differential Ord2 Lymph ABS# 1.74 K/ul 10/23/2017 Cbc With Differential Ord2 [place] ABS# 0.5 K/ul 10/23/2017 Cbc With Differential Ord2 Eos ABS# 0.1 K/ul 10/23/2017 Cbc With Differential Ord2 Baso ABS# 0.0 K/ul 10/23/2017 C-Reactive Protein Qnt Crqnt CRP 1.2 mg/dl 10/23/2017 Sed Rate Ord21 ESR 15 mm/hr 10/23/2017 Comp Metabolic Bbw451 NA 137 mEq/L 10/23/2017 Comp Metabolic Aaz007 K 3.8 mEq/L 10/23/2017 Comp Metabolic Sdx443 CL 102 mEq/L 10/23/2017 Comp Metabolic Wnq061 CO2 25.0 mEq/L 10/23/2017 Comp Metabolic Usl286 ANION GAP 14 10/23/2017 Comp Metabolic Anm755 GLUCOSE 116 mg/dL 10/23/2017 Comp Metabolic Wgp017 Creat 0.8 mg/dL 10/23/2017 Comp Metabolic Ryh621 eGFR 88 ml/min/1.73m2 10/23/2017 Comp Metabolic Tid610 BUN 11 mg/dL 10/23/2017 Comp Metabolic Xer531 B/C Ratio 13.4 Ratio 10/23/2017 Comp Metabolic Owl142 CALCIUM 9.1 mg/dL 10/23/2017 Comp Metabolic Siv375 ALK PHOS 63 U/L 10/23/2017 Comp Metabolic Uge636 AST(SGOT) 12 U/L 10/23/2017 Comp Metabolic Mzv222 ALT(SGPT) 10 U/L 10/23/2017 Comp Metabolic Wwr073 BILI T 0.4 mg/dL 10/23/2017 Comp Metabolic Yjf989 ALBUMIN 4.1 g/dL 10/23/2017 Comp Metabolic Rid518 TPRO 6.9 g/dL 10/23/2017 Comp Metabolic Mvq787 GLOB 2.8 g/dL 10/23/2017 Comp Metabolic Ryp940 A/G Ratio 1.5 Ratio 10/23/2017 Comp Metabolic Seq932 Osmo 274 mOsmo 10/23/2017 Comp Metabolic Xpf842 NA 138 mEq/L 05/14/2017 Comp Metabolic Psq861 K 3.6 mEq/L 05/14/2017 Comp Metabolic Kpm905 CL 103 mEq/L 05/14/2017 Comp Metabolic Dxb072 CO2 30.0 mEq/L 05/14/2017 Comp Metabolic Brz788 ANION GAP 9 05/14/2017 Comp Metabolic Ybc251 GLUCOSE 113 mg/dL 05/14/2017 Comp Metabolic Hvd604 Creat 0.6 mg/dL 05/14/2017 Comp Metabolic Vcu646 eGFR 124 ml/min/1.73m2 05/14/2017 Comp Metabolic Wwa082 BUN 12 mg/dL 05/14/2017 Comp Metabolic Phx900 B/C Ratio 19.7 Ratio 05/14/2017 Comp Metabolic Nxl606 CALCIUM 9.1 mg/dL 05/14/2017 Comp Metabolic Dsb807 ALK PHOS 61 U/L 05/14/2017 Comp Metabolic Rbz183 AST(SGOT) 14 U/L 05/14/2017 Comp Metabolic Phw550 ALT(SGPT) 11 U/L 05/14/2017 Comp Metabolic Tue867 BILI T 0.4 mg/dL 05/14/2017 Comp Metabolic Liu418 ALBUMIN 4.0 g/dL 05/14/2017 Comp Metabolic Dxc327 TPRO 6.6 g/dL 05/14/2017 Comp Metabolic Pfr416 GLOB 2.6 g/dL 05/14/2017 Comp Metabolic Apm905 A/G Ratio 1.5 Ratio 05/14/2017 Comp Metabolic Rxd521 Osmo 276 mOsmo 05/14/2017 Free T4 Pvl223 FREE T4 0.76 ng/dL 05/14/2017 Tsh Ord6 hTSH II 1.89 uIU/mL 05/14/2017 Cbc With Differential Ord2 WBC 9.18 K/ul 05/14/2017 Cbc With Differential Ord2 RBC 4.36 M/ul 05/14/2017 Cbc With Differential Ord2 HGB 12.6 g/dl 05/14/2017 Cbc With Differential Ord2 Neut% 62.5 % 05/14/2017 Cbc With Differential Ord2 HCT 37.4 % 05/14/2017 Cbc With Differential Ord2 Lymph% 30.0 % 05/14/2017 Cbc With Differential Ord2 MCV 85.8 fl 05/14/2017 Cbc With Differential Ord2 [place]% 5.4 % 05/14/2017 Cbc With Differential Ord2 MCH 28.9 pg 05/14/2017 Cbc With Differential Ord2 Eos% 2.0 % 05/14/2017 Cbc With Differential Ord2 MCHC 33.7 pg 05/14/2017 Cbc With Differential Ord2 Baso% 0.1 % 05/14/2017 Cbc With Differential Ord2 PLT 317 K/ul 05/14/2017 Cbc With Differential Ord2 Neut ABS# 5.74 K/ul 05/14/2017 Cbc With Differential Ord2 RDW 13.9 % 05/14/2017 Cbc With Differential Ord2 Lymph ABS# 2.75 K/ul 05/14/2017 Cbc With Differential Ord2 [place] ABS# 0.5 K/ul 05/14/2017 Cbc With Differential Ord2 Eos ABS# 0.2 K/ul 05/14/2017 Cbc With Differential Ord2 Baso ABS# 0.0 K/ul 05/14/2017 C RAP A SC [id number] Strep A Positive 08/25/2016 Cbc With Differential Ord2 WBC 9.33 K/ul 08/25/2016 Cbc With Differential Ord2 RBC 4.51 M/ul 08/25/2016 Cbc With Differential Ord2 HGB 13.4 g/dl 08/25/2016 Cbc With Differential Ord2 HCT 39.4 % 08/25/2016 Cbc With Differential Ord2 Neut% 72.0 % 08/25/2016 Cbc With Differential Ord2 MCV 87.4 fl 08/25/2016 Cbc With Differential Ord2 Lymph% 17.6 % 08/25/2016 Cbc With Differential Ord2 [place]% 7.6 % 08/25/2016 Cbc With Differential Ord2 MCH 29.7 pg 08/25/2016 Cbc With Differential Ord2 Eos% 2.6 % 08/25/2016 Cbc With Differential Ord2 MCHC 34.0 pg 08/25/2016 Cbc With Differential Ord2 Baso% 0.2 % 08/25/2016 Cbc With Differential Ord2 PLT 269 K/ul 08/25/2016 Cbc With Differential Ord2 Neut ABS# 6.72 K/ul 08/25/2016 Cbc With Differential Ord2 RDW 13.5 % 08/25/2016 Cbc With Differential Ord2 Lymph ABS# 1.64 K/ul 08/25/2016 Cbc With Differential Ord2 [place] ABS# 0.7 K/ul 08/25/2016 Cbc With Differential Ord2 Eos ABS# 0.2 K/ul 08/25/2016 Cbc With Differential Ord2 Baso ABS# 0.0 K/ul 08/25/2016 Cbc With Differential Ord2 WBC 8.21 K/ul 07/04/2016 Cbc With Differential Ord2 RBC 4.03 M/ul 07/04/2016 Cbc With Differential Ord2 HGB 12.2 g/dl 07/04/2016 Cbc With Differential Ord2 Neut% 58.9 % 07/04/2016 Cbc With Differential Ord2 HCT 35.8 % 07/04/2016 Cbc With Differential Ord2 MCV 88.8 fl 07/04/2016 Cbc With Differential Ord2 Lymph% 30.3 % 07/04/2016 Cbc With Differential Ord2 [place]% 7.7 % 07/04/2016 Cbc With Differential Ord2 MCH 30.3 pg 07/04/2016 Cbc With Differential Ord2 MCHC 34.1 pg 07/04/2016 Cbc With Differential Ord2 Eos% 3.0 % 07/04/2016 Cbc With Differential Ord2 Baso% 0.1 % 07/04/2016 Cbc With Differential Ord2 PLT 322 K/ul 07/04/2016 Cbc With Differential Ord2 RDW 14.6 % 07/04/2016 Cbc With Differential Ord2 Neut ABS# 4.83 K/ul 07/04/2016 Cbc With Differential Ord2 Lymph ABS# 2.49 K/ul 07/04/2016 Cbc With Differential Ord2 [place] ABS# 0.6 K/ul 07/04/2016 Cbc With Differential Ord2 Eos ABS# 0.3 K/ul 07/04/2016 Cbc With Differential Ord2 Baso ABS# 0.0 K/ul 07/04/2016 Quantiferon Tb Gold In Tube QUANTIFERON TB GOLD NEGATIVE Quantiferon Tb Gold In Tube CRITERIA 03/03/2016 Quantiferon Tb Gold In Tube NIL VALUE 0.03 IU/mL 03/03/2016 Quantiferon Tb Gold In Tube TB ANTIGEN VALUE 0.06 IU/mL 03/03 Quantiferon Tb Gold In Tube MITOGEN VALUE 2.41 IU/mL 03/03 Quantiferon Tb Gold In Tube TB ANTIGEN- NIL VALUE 0.03 IU/mL 03/03/2016 Quantiferon Tb Gold In Tube INTERPRETATION: 03/03 Cbc With Differential Ord2 WBC 7.56 K/ul 02/28/2016 Cbc With Differential Ord2 RBC 4.32 M/ul 02/28/2016 Cbc With Differential Ord2 HGB 12.4 g/dl 02/28/2016 Cbc With Differential Ord2 HCT 38.2 % 02/28/2016 Cbc With Differential Ord2 Neut% 65.6 % 02/28/2016 Cbc With Differential Ord2 Lymph% 26.6 % 02/28/2016 Cbc With Differential Ord2 MCV 88.4 fl 02/28/2016 Cbc With Differential Ord2 [place]% 4.2 % 02/28/2016 Cbc With Differential Ord2 MCH 28.7 pg 02/28/2016 Cbc With Differential Ord2 Eos% 3.3 % 02/28/2016 Cbc With Differential Ord2 MCHC 32.5 pg 02/28/2016 Cbc With Differential Ord2 PLT 305 K/ul 02/28/2016 Cbc With Differential Ord2 Baso% 0.3 % 02/28/2016 Cbc With Differential Ord2 Neut ABS# 4.96 K/ul 02/28/2016 Cbc With Differential Ord2 RDW 14.8 % 02/28/2016 Cbc With Differential Ord2 Lymph ABS# 2.01 K/ul 02/28/2016 Cbc With Differential Ord2 [place] ABS# 0.3 K/ul 02/28/2016 Cbc With Differential Ord2 Eos ABS# 0.3 K/ul 02/28/2016 Cbc With Differential Ord2 Baso ABS# 0.0 K/ul 02/28/2016 Comp Metabolic Itm784 NA 138 mEq/L 02/28/2016 Comp Metabolic Qza128 K 3.8 mEq/L 02/28/2016 Comp Metabolic Ptl731 CL 103 mEq/L 02/28/2016 Comp Metabolic Tnp072 CO2 31.0 mEq/L 02/28/2016 Comp Metabolic Ehy719 ANION GAP 8 02/28/2016 Comp Metabolic Pmq002 GLUCOSE 83 mg/dL 02/28/2016 Comp Metabolic Gfc574 Creat 0.7 mg/dL 02/28/2016 Comp Metabolic Qwn227 eGFR 106 ml/min/1.73m2 02/28/2016 Comp Metabolic Ibl369 BUN 12 mg/dL 02/28/2016 Comp Metabolic Gmr311 B/C Ratio 17.1 Ratio 02/28/2016 Comp Metabolic Zpp403 CALCIUM 9.7 mg/dL 02/28/2016 Comp Metabolic Wbj660 ALK PHOS 92 U/L 02/28/2016 Comp Metabolic Ove340 AST(SGOT) 14 U/L 02/28/2016 Comp Metabolic Qzm450 ALT(SGPT) 11 U/L 02/28/2016 Comp Metabolic Yfh948 BILI T 0.5 mg/dL 02/28/2016 Comp Metabolic Qsl024 ALBUMIN 4.6 g/dL 02/28/2016 Comp Metabolic Hym959 TPRO 7.1 g/dL 02/28/2016 Comp Metabolic Lnf071 GLOB 2.5 g/dL 02/28/2016 Comp Metabolic Hlr949 A/G Ratio 1.9 Ratio 02/28/2016 Comp Metabolic Mpz804 Osmo 275 mOsmo 02/28/2016 Cbc With Differential Ord2 WBC 8.38 K/ul 01/07/2016 Cbc With Differential Ord2 RBC 4.36 M/ul 01/07/2016 Cbc With Differential Ord2 HGB 12.2 g/dl 01/07/2016 Cbc With Differential Ord2 Neut% 68.1 % 01/07/2016 Cbc With Differential Ord2 HCT 37.1 % 01/07/2016 Cbc With Differential Ord2 Lymph% 23.4 % 01/07/2016 Cbc With Differential Ord2 MCV 85.1 fl 01/07/2016 Cbc With Differential Ord2 [place]% 6.2 % 01/07/2016 Cbc With Differential Ord2 MCH 28.0 pg 01/07/2016 Cbc With Differential Ord2 MCHC 32.9 pg 01/07/2016 Cbc With Differential Ord2 Eos% 2.1 % 01/07/2016 Cbc With Differential Ord2 PLT 342 K/ul 01/07/2016 Cbc With Differential Ord2 Baso% 0.2 % 01/07/2016 Cbc With Differential Ord2 RDW 15.6 % 01/07/2016 Cbc With Differential Ord2 Neut ABS# 5.70 K/ul 01/07/2016 Cbc With Differential Ord2 Lymph ABS# 1.96 K/ul 01/07/2016 Cbc With Differential Ord2 [place] ABS# 0.5 K/ul 01/07/2016 Cbc With Differential Ord2 Eos ABS# 0.2 K/ul 01/07/2016 Cbc With Differential Ord2 Baso ABS# 0.0 K/ul 01/07/2016 Comp Metabolic Hxl573 NA 138 mEq/L 12/04/2015 Comp Metabolic Muc361 K 4.0 mEq/L 12/04/2015 Comp Metabolic Kvi694 CL 104 mEq/L 12/04/2015 Comp Metabolic Uza463 CO2 28.0 mEq/L 12/04/2015 Comp Metabolic Mxv876 ANION GAP 10 12/04/2015 Comp Metabolic Ebx704 GLUCOSE 84 mg/dL 12/04/2015 Comp Metabolic Atb907 Creat 0.8 mg/dL 12/04/2015 Comp Metabolic Yme046 eGFR 89 ml/min/1.73m2 12/04/2015 Comp Metabolic Xhz132 BUN 13 mg/dL 12/04/2015 Comp Metabolic Bym714 B/C Ratio 15.9 Ratio 12/04/2015 Comp Metabolic Ugq790 CALCIUM 9.7 mg/dL 12/04/2015 Comp Metabolic Tkq462 ALK PHOS 109 U/L 12/04/2015 Comp Metabolic Ffh927 AST(SGOT) 15 U/L 12/04/2015 Comp Metabolic Sev787 ALT(SGPT) 11 U/L 12/04/2015 Comp Metabolic Wal426 BILI T 0.4 mg/dL 12/04/2015 Comp Metabolic Idz511 ALBUMIN 4.7 g/dL 12/04/2015 Comp Metabolic Rul877 TPRO 7.5 g/dL 12/04/2015 Comp Metabolic Wkx904 GLOB 2.9 g/dL 12/04/2015 Comp Metabolic Lbf430 A/G Ratio 1.6 Ratio 12/04/2015 Comp Metabolic Wfp122 Osmo 275 mOsmo 12/04/2015 Cbc With Differential Ord2 WBC 7.48 K/ul 12/04/2015 Cbc With Differential Ord2 RBC 4.52 M/ul 12/04/2015 Cbc With Differential Ord2 HGB 12.2 g/dl 12/04/2015 Cbc With Differential Ord2 Neut% 71.6 % 12/04/2015 Cbc With Differential Ord2 HCT 37.9 % 12/04/2015 Cbc With Differential Ord2 MCV 83.8 fl 12/04/2015 Cbc With Differential Ord2 Lymph% 20.7 % 12/04/2015 Cbc With Differential Ord2 [place]% 5.5 % 12/04/2015 Cbc With Differential Ord2 MCH 27.0 pg 12/04/2015 Cbc With Differential Ord2 Eos% 2.1 % 12/04/2015 Cbc With Differential Ord2 MCHC 32.2 pg 12/04/2015 Cbc With Differential Ord2 Baso% 0.1 % 12/04/2015 Cbc With Differential Ord2 PLT 347 K/ul 12/04/2015 Cbc With Differential Ord2 RDW 15.6 % 12/04/2015 Cbc With Differential Ord2 Neut ABS# 5.35 K/ul 12/04/2015 Cbc With Differential Ord2 Lymph ABS# 1.55 K/ul 12/04/2015 Cbc With Differential Ord2 [place] ABS# 0.4 K/ul 12/04/2015 Cbc With Differential Ord2 Eos ABS# 0.2 K/ul 12/04/2015 Cbc With Differential Ord2 Baso ABS# 0.0 K/ul 12/04/2015 Cbc With Differential Ord2 WBC 8.31 K/ul 11/01/2015 Cbc With Differential Ord2 RBC 4.20 M/ul 11/01/2015 Cbc With Differential Ord2 HGB 11.1 g/dl 11/01/2015 Cbc With Differential Ord2 Neut% 71.1 % 11/01/2015 Cbc With Differential Ord2 HCT 34.3 % 11/01/2015 Cbc With Differential Ord2 Lymph% 22.1 % 11/01/2015 Cbc With Differential Ord2 MCV 81.7 fl 11/01/2015 Cbc With Differential Ord2 MCH 26.4 pg 11/01/2015 Cbc With Differential Ord2 [place]% 5.4 % 11/01/2015 Cbc With Differential Ord2 Eos% 1.3 % 11/01/2015 Cbc With Differential Ord2 MCHC 32.4 pg 11/01/2015 Cbc With Differential Ord2 Baso% 0.1 % 11/01/2015 Cbc With Differential Ord2 PLT 420 K/ul 11/01/2015 Cbc With Differential Ord2 RDW 15.5 % 11/01/2015 Cbc With Differential Ord2 Neut ABS# 5.90 K/ul 11/01/2015 Cbc With Differential Ord2 Lymph ABS# 1.84 K/ul 11/01/2015 Cbc With Differential Ord2 [place] ABS# 0.5 K/ul 11/01/2015 Cbc With Differential Ord2 Eos ABS# 0.1 K/ul 11/01/2015 Cbc With Differential Ord2 Baso ABS# 0.0 K/ul 11/01/2015 Cbc With Differential Ord2 New Analyzer Notice Please note new ref ranges starting 06-27-2015 due to implemntation of new five part differential hematolgy analyzer. 11/01/2015 Cbc With Differential Ord2 WBC 8.48 K/ul 08/31/2015 Cbc With Differential Ord2 RBC 4.52 M/ul 08/31/2015 Cbc With Differential Ord2 HGB 11.7 g/dl 08/31/2015 Cbc With Differential Ord2 Neut% 70.6 % 08/31/2015 Cbc With Differential Ord2 HCT 37.2 % 08/31/2015 Cbc With Differential Ord2 Lymph% 19.8 % 08/31/2015 Cbc With Differential Ord2 MCV 82.3 fl 08/31/2015 Cbc With Differential Ord2 [place]% 7.4 % 08/31/2015 Cbc With Differential Ord2 MCH 25.9 pg 08/31/2015 Cbc With Differential Ord2 Eos% 2.0 % 08/31/2015 Cbc With Differential Ord2 MCHC 31.5 pg 08/31/2015 Cbc With Differential Ord2 PLT 393 K/ul 08/31/2015 Cbc With Differential Ord2 Baso% 0.2 % 08/31/2015 Cbc With Differential Ord2 RDW 15.1 % 08/31/2015 Cbc With Differential Ord2 Neut ABS# 5.98 K/ul 08/31/2015 Cbc With Differential Ord2 Lymph ABS# 1.68 K/ul 08/31/2015 Cbc With Differential Ord2 [place] ABS# 0.6 K/ul 08/31/2015 Cbc With Differential Ord2 Eos ABS# 0.2 K/ul 08/31/2015 Cbc With Differential Ord2 Baso ABS# 0.0 K/ul 08/31/2015 Cbc With Differential Ord2 New Analyzer Notice Please note new ref ranges starting 06-27-2015 due to implemntation of new five part differential hematolgy analyzer. 08/31/2015 Comp Metabolic Xlb624 NA 135 mEq/L 08/31/2015 Comp Metabolic Qco139 K 4.3 mEq/L 08/31/2015 Comp Metabolic Hvr260 CL 99 mEq/L 08/31/2015 Comp Metabolic Dez335 CO2 26.0 mEq/L 08/31/2015 Comp Metabolic Ogg750 ANION GAP 14 08/31/2015 Comp Metabolic Wyq287 GLUCOSE 70 mg/dL 08/31/2015 Comp Metabolic Hmo219 Creat 0.7 mg/dL 08/31/2015 Comp Metabolic Iab752 eGFR 116 ml/min/1.73m2 08/31/2015 Comp Metabolic Iel007 BUN 17 mg/dL 08/31/2015 Comp Metabolic Vhs394 B/C Ratio 26.2 Ratio 08/31/2015 Comp Metabolic Ngr364 CALCIUM 9.6 mg/dL 08/31/2015 Comp Metabolic Tkf425 ALK PHOS 90 U/L 08/31/2015 Comp Metabolic Tju988 AST(SGOT) 17 U/L 08/31/2015 Comp Metabolic Hwb892 ALT(SGPT) 23 U/L 08/31/2015 Comp Metabolic Uld666 BILI T 0.4 mg/dL 08/31/2015 Comp Metabolic Jsp125 ALBUMIN 4.2 g/dL 08/31/2015 Comp Metabolic Tbu466 TPRO 7.3 g/dL 08/31/2015 Comp Metabolic Jeg135 GLOB 3.1 g/dL 08/31/2015 Comp Metabolic Vni204 A/G Ratio 1.4 Ratio 08/31/2015 Comp Metabolic Azk350 Osm[place] 270 mOsmo 08/31/2015 [place] Spotted Fever Igg/Igm [id number] [place] SPOTTED FEVER IGM EIA . 05/13/2015 [place] Spotted Fever Igg/Igm [id number] RMSF, IGM 0.32 index 05/13/2015 [place] Spotted Fever Igg/Igm [id number] [place] SPOTTED FEVER IGG EIA FLEX . 05/13/2015 [place] Spotted Fever Igg/Igm [id number] RMSF, IGG SCREEN-FLEX Negative 05/13/2015 Antineutrophil Cytoplasmic Ab [id number] ANTI -PR3 (C-ANCA) 4.0-5.9 EU/mL 05/09/2015 Antineutrophil Cytoplasmic Ab [id number] ANTI -MPO (P-ANCA) >5.9 EU/mL 05/09/2015 Antineutrophil Cytoplasmic Ab [id number] 05/09/2015 Ehrlichia Chaffeensis Antibody Igm [id number] EHRLICHIA CHAFFEENSIS IGM < 1:16 05/09/2015 Lymes Disease Total Antibodies With Western Blot Reflex [id number] B. BURGDORFERI, IGG/IGM 0.12 LI 05/09/2015 Lymes Disease Total Antibodies With Western Blot Reflex [id number] 05/09/2015 Ehrlichia Chaffeensis Antibody Igg [id number] EHRLICHIA CHAFFEENSIS IGG <1:64 05/09/2015 Sjogren'S Ab Anti-Ss-A/-Ss-B [id number] SSA ( Ro) ANTIBODY,IGG 1.3 EU/mL 04/30/2015 Sjogren'S Ab Anti-Ss-A/-Ss-B [id number] SSB ( [place]) ANTIBODY,IGG 1.9 EU/mL 04/30/2015 Fatuma [id number] FATUMA ([place]IL[place]) SCREEN NONE DETECTED 04/30/2015 Anti-Dsdna Antibodies [id number] dsDNA ANTIBODY,IGG <0.1 IU/mL 04/30/2015 Anti-Dsdna Antibodies [id number] 04/30/2015 Anti-Dsdna Antibodies [id number] dsDNA ANTIBODY,IGG TEST NOT PERFORMED IU/mL 04/26/2015 Antineutrophil Cytoplasmic Ab [id number] ANTI -PR3 (C-ANCA) TEST NOT PERFORMED EU/mL 04/26/2015 Antineutrophil Cytoplasmic Ab [id number] ANTI -MPO (P-ANCA) TEST NOT PERFORMED EU/mL 04/26/2015 Sjogren'S Ab Anti-Ss-A/-Ss-B [id number] SSA ( Ro) ANTIBODY,IGG TEST NOT PERFORMED EU/ mL 04/26/2015 Sjogren'S Ab Anti-Ss-A/-Ss-B [id number] SSB ( [place]) ANTIBODY,IGG TEST NOT PERFORMED EU/ mL 04/26/2015 Fatuma [id number] FATUMA ([place]IL[place]) SCREEN TEST NOT PERFORMED 04/26/2015 Actin (Smooth Muscle) Antibody [id number] F- ACTIN ANTIBODY, IGG 8 Units 04/24/2015 Tibc Ord40 Iron 24 ug/dl 04/20/2015 Tibc Ord40 UIBC 225 ug/dL 04/20/2015 Tibc Ord40 TIBC 249 ug/dL 04/20/2015 Tibc Ord40 Fe-%Sat 9.6 % 04/20/2015 Ferritin Ord22 FERRITIN 67.6 ng/mL 04/20/2015 Sed Rate Ord21 ESR 68 mm/hr 04/19/2015 Uric Acid Ord77 Uric A 3.9 mg/dL 04/19/2015 Ra Factor Jsz828 RA FACTOR <10 IU/ml 04/19/2015 C-Reactive Protein Qnt Crqnt CRP 8.7 mg/dl 04/19/2015 Tsh Ord6 hTSH II 1.89 uIU/mL 04/19/2015 Comp Metabolic Xuj513 NA 138 mEq/L 04/19/2015 Comp Metabolic Aar837 K 4.1 mEq/L 04/19/2015 Comp Metabolic Uwo027 CL 102 mEq/L 04/19/2015 Comp Metabolic Szq630 CO2 28.0 mEq/L 04/19/2015 Comp Metabolic Yjl503 ANION GAP 12 04/19/2015 Comp Metabolic Nhm238 GLUCOSE 79 mg/dL 04/19/2015 Comp Metabolic Efs538 Creat 0.6 mg/dL 04/19/2015 Comp Metabolic Jmm964 eGFR 123 ml/min/1.73m2 04/19/2015 Comp Metabolic Wec753 BUN 18 mg/dL 04/19/2015 Comp Metabolic Zer554 B/C Ratio 29.0 Ratio 04/19/2015 Comp Metabolic Wrf359 CALCIUM 9.2 mg/dL 04/19/2015 Comp Metabolic Qrs516 ALK PHOS 84 U/L 04/19/2015 Comp Metabolic Qnt472 AST(SGOT) 27 U/L 04/19/2015 Comp Metabolic Xwl869 ALT(SGPT) 35 U/L 04/19/2015 Comp Metabolic Emu324 BILI T 0.3 mg/dL 04/19/2015 Comp Metabolic Dde631 ALBUMIN 3.8 g/dL 04/19/2015 Comp Metabolic Lwg050 TPRO 6.5 g/dL 04/19/2015 Comp Metabolic Hjr553 GLOB 2.8 g/dL 04/19/2015 Comp Metabolic Fza717 A/G Ratio 1.4 Ratio 04/19/2015 Comp Metabolic Oxd636 Osmo 276 mOsmo 04/19/2015 Cbc With Differential Ord2 WBC 11.1 K/uL 04/19/2015 Cbc With Differential Ord2 LYM 2.2 K/uL 04/19/2015 Cbc With Differential Ord2 L[place]% 19.9 % 04/19/2015 Cbc With Differential Ord2 NEUT/GRAN 8.1 K/uL 04/19/2015 Cbc With Differential Ord2 NEUT/GRAN % 73.3 % 04/19/2015 Cbc With Differential Ord2 MID 0.8 K/uL 04/19/2015 Cbc With Differential Ord2 MID% 6.8 % 04/19/2015 Cbc With Differential Ord2 RBC 3.72 M/uL 04/19/2015 Cbc With Differential Ord2 HGB 10.2 g/dL 04/19/2015 Cbc With Differential Ord2 HCT 31.3 % 04/19/2015 Cbc With Differential Ord2 MCV 84 fL 04/19/2015 Cbc With Differential Ord2 MCH 27 pg 04/19/2015 Cbc With Differential Ord2 MCHC 33 g/dL 04/19/2015 Cbc With Differential Ord2 PLT 454 K/uL 04/19/2015 Cbc With Differential Ord2 RDW 13.3 % 04/19/2015 Tsh Ord6 hTSH II 3.05 uIU/mL 01/15/2015 Comp Metabolic Ntj648 NA 137 mEq/L 01/15/2015 Comp Metabolic Lct585 K 4.3 mEq/L 01/15/2015 Comp Metabolic Vfe390 CL 99 mEq/L 01/15/2015 Comp Metabolic Slv462 CO2 28.0 mEq/L 01/15/2015 Comp Metabolic Smx747 ANION GAP 14 01/15/2015 Comp Metabolic Pnv180 GLUCOSE 76 mg/dL 01/15/2015 Comp Metabolic Bhc704 Creat 0.7 mg/dL 01/15/2015 Comp Metabolic Tik886 eGFR 107 ml/min/1.73m2 01/15/2015 Comp Metabolic Swy684 BUN 12 mg/dL 01/15/2015 Comp Metabolic Pjv894 B/C Ratio 17.1 Ratio 01/15/2015 Comp Metabolic Uvz701 CALCIUM 9.4 mg/dL 01/15/2015 Comp Metabolic Qgt045 ALK PHOS 51 U/L 01/15/2015 Comp Metabolic Hgv082 AST(SGOT) 14 U/L 01/15/2015 Comp Metabolic Nou464 ALT(SGPT) 12 U/L 01/15/2015 Comp Metabolic Tyz055 BILI T 0.3 mg/dL 01/15/2015 Comp Metabolic Vle638 ALBUMIN 4.2 g/dL 01/15/2015 Comp Metabolic Epz052 TPRO 6.8 g/dL 01/15/2015 Comp Metabolic Ndm132 GLOB 2.6 g/dL 01/15/2015 Comp Metabolic Tbp151 A/G Ratio 1.6 Ratio 01/15/2015 Comp Metabolic Nya180 Osmo 272 mOsmo 01/15/2015 Cbc With Differential Ord2 WBC 6.6 K/uL 01/15/2015 Cbc With Differential Ord2 LYM 1.6 K/uL 01/15/2015 Cbc With Differential Ord2 LYM% 24.1 % 01/15/2015 Cbc With Differential Ord2 NEUT/GRAN 4.6 K/uL 01/15/2015 Cbc With Differential Ord2 NEUT/GRAN % 69.0 % 01/15/2015 Cbc With Differential Ord2 MID 0.5 K/uL 01/15/2015 Cbc With Differential Ord2 MID% 6.9 % 01/15/2015 Cbc With Differential Ord2 RBC 4.44 M/uL 01/15/2015 Cbc With Differential Ord2 HGB 12.7 g/dL 01/15/2015 Cbc With Differential Ord2 HCT 37.8 % 01/15/2015 Cbc With Differential Ord2 MCV 85 fL 01/15/2015 Cbc With Differential Ord2 MCH 29 pg 01/15/2015 Cbc With Differential Ord2 MCHC 34 g/dL 01/15/2015 Cbc With Differential Ord2 PLT 265 K/uL 01/15/2015 Cbc With Differential Ord2 RDW 14.0 % 01/15/2015 Review of Systems System Result Effective Dates Constitutional No recent illness 2017 Constitutional fatigue 10/23/2017 Eyes No vision change 10/23/2017 Ears/Nose/Throat/Neck No nasal allergies 10/23/2017 Ears/Nose/Throat/Neck No nasal discharge 10/23/2017 Cardiovascular No chest pain/pressure 04/2018 Cardiovascular No dyspnea 10/23/2017 Respiratory No chest congestion 2017 Respiratory No cough 10/23/2017 Respiratory No dyspnea 10/23/2017 Gastrointestinal No abdominal pain 2017 Dermatologic rash 10/23/2017 Neurologic No alteration of consciousness 10/23/2017 Neurologic No mental status change 2017 Cardiovascular edema 10/23/2017 Genitourinary/Nephrology No dysuria 10/23 Musculoskeletal joint complaint 2017 Musculoskeletal arthralgia(s) 10/23/2017 Musculoskeletal swelling 10/23/2017 Musculoskeletal stiffness 10/23/2017 Psychiatric depression 10/23/2017 Psychiatric anxiety 10/23/2017 Constitutional No recent illness 2016 Constitutional fatigue 05/14/2017 Eyes No vision change 05/14/2017 Ears/Nose/Throat/Neck No nasal allergies 05/14/2017 Ears/Nose/Throat/Neck No nasal discharge 05/14/2017 Cardiovascular No chest pain/pressure Cardiovascular No dyspnea 05/14/2017 Respiratory No chest congestion 2016 Respiratory No cough 05/14/2017 Respiratory No dyspnea 05/14/2017 Gastrointestinal No abdominal pain 2016 Dermatologic rash 05/14/2017 Neurologic No alteration of consciousness 05/14/2017 Neurologic No mental status change 2016 Constitutional recent illness 04/08/2017 Constitutional No chills 04/08/2017 Constitutional No diaphoresis 04/08/2017 Constitutional No fever 04/08/2017 Eyes No eye erythema 04/08/2017 Ears/Nose/Throat/Neck nasal allergies Ears/Nose/Throat/Neck nasal discharge Ears/Nose/Throat/Neck postnasal drip Ears/Nose/Throat/Neck sore throat 2016 Cardiovascular No chest pain/pressure Cardiovascular No dyspnea 04/08/2017 Respiratory No chest congestion 2016 Respiratory cough 04/08/2017 Respiratory No dyspnea 04/08/2017 Gastrointestinal No constipation 2016 Gastrointestinal No diarrhea 04/08/2017 Gastrointestinal No nausea 04/08/2017 Gastrointestinal No vomiting 04/08/2017 Dermatologic No rash 04/08/2017 Neurologic No alteration of consciousness 04/08/2017 Neurologic No mental status change 2016 Ears/Nose/Throat/Neck No sinus congestion 04/08/2017 Constitutional recent illness 08/25/2016 Constitutional No anorexia 08/25/2016 Constitutional No night sweats 2016 Constitutional No chills 08/25/2016 Constitutional diaphoresis 08/25/2016 Constitutional fatigue 08/25/2016 Constitutional fever 08/25/2016 Constitutional No weight loss 08/25/2016 Constitutional No weight gain 08/25/2016 Constitutional No malaise 08/25/2016 Constitutional No insomnia 08/25/2016 Eyes No eye discharge 08/25/2016 Eyes No eye erythema 08/25/2016 Ears/Nose/Throat/Neck No dizziness 2016 Ears/Nose/Throat/Neck No headache 2016 Ears/Nose/Throat/Neck No nasal allergies 08/25/2016 Ears/Nose/Throat/Neck nasal discharge Ears/Nose/Throat/Neck otalgia 08/25/2016 Ears/Nose/Throat/Neck No sinus congestion 08/25/2016 Ears/Nose/Throat/Neck sore throat 2016 Cardiovascular No chest pain/pressure Cardiovascular No dyspnea 08/25/2016 Cardiovascular No edema 08/25/2016 Respiratory No productive sputum 2016 Respiratory No chest congestion 2016 Gastrointestinal No abdominal pain 2016 Gastrointestinal No constipation 2016 Gastrointestinal No diarrhea 08/25/2016 Musculoskeletal No joint complaint 2016 Genitourinary/Nephrology No dysuria 08/25 Dermatologic No rash 08/25/2016 Dermatologic No sores 08/25/2016 Neurologic No alteration of consciousness 08/25/2016 Constitutional No chills 07/07/2016 Constitutional No diaphoresis 07/07/2016 Constitutional fatigue 07/07/2016 Constitutional No fever 07/07/2016 Constitutional No insomnia 07/07/2016 Eyes No vision change 07/07/2016 Ears/Nose/Throat/Neck No nasal allergies 07/07/2016 Ears/Nose/Throat/Neck No nasal discharge 07/07/2016 Ears/Nose/Throat/Neck No sinus congestion 07/07/2016 Cardiovascular No chest pain/pressure Cardiovascular No dyspnea 07/07/2016 Cardiovascular No edema 07/07/2016 Respiratory No cough 07/07/2016 Respiratory No dyspnea 07/07/2016 Gastrointestinal No constipation 2016 Gastrointestinal No diarrhea 07/07/2016 Musculoskeletal No joint complaint 2016 Dermatologic No rash 07/07/2016 Neurologic No alteration of consciousness 07/07/2016 Neurologic No mental status change 2016 Psychiatric No anxiety 07/07/2016 Psychiatric depression 07/07/2016 Constitutional No recent illness 2015 Constitutional fatigue 04/21/2016 Eyes No vision change 04/21/2016 Ears/Nose/Throat/Neck No nasal allergies 04/21/2016 Ears/Nose/Throat/Neck No nasal discharge 04/21/2016 Cardiovascular No chest pain/pressure 12/2015 Cardiovascular No dyspnea 04/21/2016 Respiratory No chest congestion 2015 Respiratory No cough 04/21/2016 Respiratory No dyspnea 04/21/2016 Dermatologic rash 04/21/2016 Neurologic No alteration of consciousness 04/21/2016 Neurologic No mental status change 2015 Constitutional No recent illness 2015 Constitutional fatigue 02/27/2016 Eyes No vision change 02/27/2016 Ears/Nose/Throat/Neck No nasal allergies 02/27/2016 Ears/Nose/Throat/Neck No nasal discharge 02/27/2016 Cardiovascular No chest pain/pressure Cardiovascular No dyspnea 02/27/2016 Respiratory No cough 02/27/2016 Respiratory No dyspnea 02/27/2016 Dermatologic rash 02/27/2016 Neurologic No alteration of consciousness 02/27/2016 Neurologic No mental status change 2015 Respiratory No chest congestion 2015 Gastrointestinal No abdominal pain 2015 Constitutional fatigue 02/04/2016 Eyes No vision change 02/04/2016 Ears/Nose/Throat/Neck No nasal allergies 02/04/2016 Ears/Nose/Throat/Neck No nasal discharge 02/04/2016 Cardiovascular No chest pain/pressure Cardiovascular No dyspnea 02/04/2016 Respiratory No cough 02/04/2016 Respiratory No dyspnea 02/04/2016 Dermatologic No rash 02/04/2016 Neurologic No alteration of consciousness 02/04/2016 Neurologic No mental status change 2015 Psychiatric No anxiety 02/04/2016 Psychiatric depression 02/04/2016 Constitutional No recent illness 2015 Constitutional No chills 12/04/2015 Constitutional No diaphoresis 12/04/2015 Constitutional fatigue 12/04/2015 Constitutional No fever 12/04/2015 Constitutional No insomnia 12/04/2015 Eyes No vision change 12/04/2015 Ears/Nose/Throat/Neck No nasal allergies 12/04/2015 Ears/Nose/Throat/Neck No nasal discharge 12/04/2015 Ears/Nose/Throat/Neck No sinus congestion 12/04/2015 Cardiovascular No chest pain/pressure Cardiovascular No dyspnea 12/04/2015 Respiratory No cough 12/04/2015 Respiratory No dyspnea 12/04/2015 Gastrointestinal No constipation 2015 Gastrointestinal No diarrhea 12/04/2015 Musculoskeletal No joint complaint 2015 Dermatologic No rash 12/04/2015 Neurologic No alteration of consciousness 12/04/2015 Neurologic No mental status change 2015 Psychiatric No anxiety 12/04/2015 Psychiatric depression 12/04/2015 Cardiovascular No edema 12/04/2015 Constitutional No chills 11/01/2015 Constitutional No diaphoresis 11/01/2015 Constitutional fatigue 11/01/2015 Constitutional No fever 11/01/2015 Constitutional No insomnia 11/01/2015 Eyes No vision change 11/01/2015 Ears/Nose/Throat/Neck No nasal allergies 11/01/2015 Ears/Nose/Throat/Neck No nasal discharge 11/01/2015 Cardiovascular No chest pain/pressure Respiratory No chest congestion 2015 Respiratory No cough 11/01/2015 Respiratory No dyspnea 11/01/2015 Gastrointestinal No constipation 2015 Gastrointestinal No diarrhea 11/01/2015 Dermatologic No rash 11/01/2015 Dermatologic No sores 11/01/2015 Psychiatric No anxiety 11/01/2015 Psychiatric depression 11/01/2015 Ears/Nose/Throat/Neck No sinus congestion 11/01/2015 Cardiovascular No dyspnea 11/01/2015 Musculoskeletal No joint complaint 2015 Neurologic No alteration of consciousness 11/01/2015 Neurologic No mental status change 2015 Constitutional No recent illness 2015 Constitutional No anorexia 08/31/2015 Constitutional No night sweats 2015 Constitutional No chills 08/31/2015 Constitutional No diaphoresis 08/31/2015 Constitutional No fatigue 08/31/2015 Constitutional No fever 08/31/2015 Constitutional No insomnia 08/31/2015 Constitutional No malaise 08/31/2015 Constitutional No weight loss 08/31/2015 Constitutional No weight gain 08/31/2015 Constitutional No obesity 08/31/2015 Eyes No vision change 08/31/2015 Dermatologic No sores 08/31/2015 Dermatologic No rash 08/31/2015 Psychiatric No anxiety 08/31/2015 Psychiatric depression 08/31/2015 Cardiovascular No chest pain/pressure Respiratory No cigarette smoking 2015 Respiratory No cough 08/31/2015 Respiratory No chest tightness 2015 Respiratory No chest congestion 2015 Respiratory No dyspnea 08/31/2015 Respiratory No dyspnea on exertion 2015 Gastrointestinal No constipation 2015 Gastrointestinal No diarrhea 08/31/2015 Genitourinary/Nephrology No dysuria 08/30 Ears/Nose/Throat/Neck No nasal allergies 08/31/2015 Ears/Nose/Throat/Neck No nasal discharge 08/31/2015 Ears/Nose/Throat/Neck No headache 2015 Ears/Nose/Throat/Neck No otalgia 2015 Ears/Nose/Throat/Neck No otitis media Ears/Nose/Throat/Neck No sore throat Ears/Nose/Throat/Neck No sinus congestion 08/31/2015 Musculoskeletal No muscle weakness 2015 Musculoskeletal neck pain 08/31/2015 Musculoskeletal No myalgias 08/31/2015 Musculoskeletal No joint complaint 2015 Constitutional No recent illness 2015 Constitutional No anorexia 07/27/2015 Constitutional No night sweats 2015 Constitutional No chills 07/27/2015 Constitutional No diaphoresis 07/27/2015 Constitutional fatigue 07/27/2015 Constitutional No fever 07/27/2015 Constitutional insomnia 07/27/2015 Constitutional No malaise 07/27/2015 Eyes No eye discharge 07/27/2015 Eyes No eye erythema 07/27/2015 Ears/Nose/Throat/Neck No dizziness 2015 Ears/Nose/Throat/Neck No headache 2015 Ears/Nose/Throat/Neck No nasal discharge 07/27/2015 Ears/Nose/Throat/Neck No otalgia 2015 Ears/Nose/Throat/Neck No sinus congestion 07/27/2015 Cardiovascular No chest pain/pressure 05/2016 Cardiovascular No dyspnea 07/27/2015 Cardiovascular edema 07/27/2015 Respiratory No productive sputum 2015 Respiratory No cough 07/27/2015 Gastrointestinal No abdominal pain 2015 Gastrointestinal No constipation 2015 Gastrointestinal No diarrhea 07/27/2015 Genitourinary/Nephrology No dysuria 07/27 Musculoskeletal joint complaint 2015 Dermatologic No rash 07/27/2015 Neurologic No alteration of consciousness 07/27/2015 Psychiatric depression 07/27/2015 Endocrine No dry or coarse skin 2015 Endocrine No hair loss 07/27/2015 Endocrine No sweating 07/27/2015 Endocrine No weakness 07/27/2015 Musculoskeletal stiffness 07/27/2015 Musculoskeletal swelling 07/27/2015 Musculoskeletal arthralgia(s) 07/27/2015 Constitutional No recent illness 2014 Constitutional No anorexia 04/19/2015 Constitutional No night sweats 2014 Constitutional No chills 04/19/2015 Constitutional No diaphoresis 04/19/2015 Constitutional fatigue 04/19/2015 Constitutional No fever 04/19/2015 Constitutional insomnia 04/19/2015 Constitutional No malaise 04/19/2015 Constitutional No weight loss 04/19/2015 Constitutional No weight gain 04/19/2015 Eyes No eye discharge 04/19/2015 Eyes No eye erythema 04/19/2015 Ears/Nose/Throat/Neck No dizziness 2014 Ears/Nose/Throat/Neck No headache 2014 Ears/Nose/Throat/Neck No nasal discharge 04/19/2015 Ears/Nose/Throat/Neck No otalgia 2014 Ears/Nose/Throat/Neck No sinus congestion 04/19/2015 Cardiovascular No chest pain/pressure 10/2014 Cardiovascular No dyspnea 04/19/2015 Respiratory No productive sputum 2014 Respiratory No cough 04/19/2015 Gastrointestinal No abdominal pain 2014 Gastrointestinal No constipation 2014 Gastrointestinal No diarrhea 04/19/2015 Genitourinary/Nephrology No dysuria 04/19 Musculoskeletal joint complaint 2014 Cardiovascular edema 04/19/2015 Dermatologic No rash 04/19/2015 Neurologic No alteration of consciousness 04/19/2015 Psychiatric depression 04/19/2015 Endocrine No dry or coarse skin 2014 Endocrine No hair loss 04/19/2015 Endocrine No sweating 04/19/2015 Endocrine No weakness 04/19/2015 Constitutional No recent illness 2014 Constitutional No anorexia 01/15/2015 Constitutional No night sweats 2014 Constitutional No chills 01/15/2015 Constitutional No diaphoresis 01/15/2015 Constitutional fatigue 01/15/2015 Constitutional No fever 01/15/2015 Constitutional No insomnia 01/15/2015 Constitutional No malaise 01/15/2015 Constitutional No weight loss 01/15/2015 Constitutional weight gain 01/15/2015 Eyes No eye discharge 01/15/2015 Eyes No eye erythema 01/15/2015 Ears/Nose/Throat/Neck No dizziness 2014 Ears/Nose/Throat/Neck headache 2014 Cardiovascular No chest pain/pressure 08/2014 Cardiovascular No edema 01/15/2015 Cardiovascular No dyspnea 01/15/2015 Respiratory No productive sputum 2014 Respiratory No chest congestion 2014 Respiratory No cough 01/15/2015 Gastrointestinal No abdominal pain 2014 Gastrointestinal No constipation 2014 Gastrointestinal No diarrhea 01/15/2015 Genitourinary/Nephrology No dysuria 01/15 Genitourinary/Nephrology menopausal symptoms 01/15/2015 Musculoskeletal No joint complaint 2014 Dermatologic No rash 01/15/2015 Neurologic No alteration of consciousness 01/15/2015 Psychiatric depression 01/15/2015 Endocrine No dry or coarse skin 2014 Endocrine No hair loss 01/15/2015 Hematologic/Lymphatic No abnormal bleeding and bruising 01/15/2015 Constitutional No recent illness 2013 Constitutional No chills 02/21/2014 Constitutional No fatigue 02/21/2014 Constitutional No fever 02/21/2014 Constitutional No insomnia 02/21/2014 Constitutional No malaise 02/21/2014 Respiratory No cough 02/21/2014 Dermatologic rash 02/21/2014 Constitutional No recent illness 2013 Constitutional No anorexia 11/15/2013 Constitutional No night sweats 2013 Constitutional No chills 11/15/2013 Constitutional No diaphoresis 11/15/2013 Constitutional No fatigue 11/15/2013 Constitutional No fever 11/15/2013 Constitutional No insomnia 11/15/2013 Constitutional No malaise 11/15/2013 Constitutional No weight loss 11/15/2013 Constitutional No weight gain 11/15/2013 Constitutional recent illness 11/10/2013 Constitutional No anorexia 11/10/2013 Constitutional No night sweats 2013 Constitutional No chills 11/10/2013 Constitutional No diaphoresis 11/10/2013 Constitutional No fatigue 11/10/2013 Constitutional No fever 11/10/2013 Constitutional No insomnia 11/10/2013 Constitutional No malaise 11/10/2013 Eyes No eye discharge 11/10/2013 Eyes No eye erythema 11/10/2013 Ears/Nose/Throat/Neck No nasal discharge 11/10/2013 Ears/Nose/Throat/Neck No nasal allergies 11/10/2013 Respiratory No cough 11/10/2013 Cardiovascular No chest pain/pressure Gastrointestinal No abdominal pain 2013 Gastrointestinal No constipation 2013 Gastrointestinal No diarrhea 11/10/2013 Genitourinary/Nephrology No dysuria 11/10 Musculoskeletal No joint complaint 2013 Dermatologic rash 11/10/2013 Constitutional recent illness 07/15/2013 Constitutional No anorexia 07/15/2013 Constitutional No night sweats 2013 Constitutional No chills 07/15/2013 Constitutional No diaphoresis 07/15/2013 Constitutional No fatigue 07/15/2013 Constitutional No fever 07/15/2013 Constitutional No insomnia 07/15/2013 Constitutional No malaise 07/15/2013 Eyes No eye discharge 07/15/2013 Eyes No eye erythema 07/15/2013 Cardiovascular No chest pain/pressure Respiratory No cough 07/15/2013 Gastrointestinal No abdominal pain 2013 Gastrointestinal No diarrhea 07/15/2013 Gastrointestinal No constipation 2013 Gastrointestinal No nausea 07/15/2013 Gastrointestinal No vomiting 07/15/2013 Genitourinary/Nephrology No dysuria 07/15 Musculoskeletal No joint complaint 2013 Physical Exam Exam Name System Name Item Name Status Result Effective Dates Notes Full Exam - General 1994 Constitutional general appearance Overall: well developed 10/23/2017 None Full Exam - General 1994 Constitutional general appearance Overall: in no acute distress 10/23/2017 None Full Exam - General 1994 Constitutional general appearance Overall: well nourished 10/23/2017 None Full Exam - General 1994 Eyes conjunctiva /eyelids Overall: conjunctiva clear 10/23/2017 None Full Exam - General 1994 Ears/Nose/Throat lips/teeth/gingiva Overall: benign lips 10/23/2017 None Full Exam - General 1994 Ears/Nose/Throat lips/teeth/gingiva Overall: normal dentition 10/23/2017 None Full Exam - General 1994 Ears/Nose/Throat oral cavity/pharynx/larynx Overall: oral mucosa clear 10/23/2017 None Full Exam - General 1994 Respiratory auscultation Overall: breath sounds clear bilaterally 10/23/2017 None Full Exam - General 1994 Respiratory respiratory effort/rhythm Overall: no retractions 10/23/2017 None Full Exam - General 1994 Respiratory respiratory effort/rhythm Overall: normal rate 10/23/2017 None Full Exam - General 1994 Cardiovascular auscultation of heart Overall: regular rate 10/23/2017 None Full Exam - General 1994 Cardiovascular auscultation of heart Overall: normal heart sounds 10/23/2017 None Full Exam - General 1994 Musculoskeletal head and neck Overall: head atraumatic 10/23/2017 None Full Exam - General 1994 Neurologic cranial nerves Overall: crainial nerves 2 - 12 grossly intact 10/23/2017 None Full Exam - General 1994 Psychiatric orientation/consciousness Overall: oriented to person, place and time 10/23/2017 None Full Exam - General 1994 Psychiatric mood and affect Overall: normal mood and affect 10/23/2017 None Full Exam - General 1994 Psychiatric mood and affect Mood: flat 10/23/2017 None Full Exam - General 1994 Psychiatric appearance Overall: well-groomed, good eye contact 10/23/2017 None Full Exam - General 1994 Constitutional general appearance Overall: well developed 05/14/2017 None Full Exam - General 1994 Constitutional general appearance Overall: in no acute distress 05/14/2017 None Full Exam - General 1994 Constitutional general appearance Overall: well nourished 05/14/2017 None Full Exam - General 1994 Eyes conjunctiva /eyelids Overall: conjunctiva clear 05/14/2017 None Full Exam - General 1994 Ears/Nose/Throat lips/teeth/gingiva Overall: benign lips 05/14/2017 None Full Exam - General 1994 Ears/Nose/Throat lips/teeth/gingiva Overall: normal dentition 05/14/2017 None Full Exam - General 1994 Ears/Nose/Throat oral cavity/pharynx/larynx Overall: oral mucosa clear 05/14/2017 None Full Exam - General 1994 Respiratory auscultation Overall: breath sounds clear bilaterally 05/14/2017 None Full Exam - General 1994 Respiratory respiratory effort/rhythm Overall: no retractions 05/14/2017 None Full Exam - General 1994 Respiratory respiratory effort/rhythm Overall: normal rate 05/14/2017 None Full Exam - General 1994 Cardiovascular auscultation of heart Overall: regular rate 05/14/2017 None Full Exam - General 1994 Cardiovascular auscultation of heart Overall: normal heart sounds 05/14/2017 None Full Exam - General 1994 Musculoskeletal head and neck Overall: head atraumatic 05/14/2017 None Full Exam - General 1994 Neurologic cranial nerves Overall: crainial nerves 2 - 12 grossly intact 05/14/2017 None Full Exam - General 1994 Psychiatric orientation/consciousness Overall: oriented to person, place and time 05/14/2017 None Full Exam - General 1994 Psychiatric mood and affect Overall: normal mood and affect 05/14/2017 None Full Exam - General 1994 Psychiatric mood and affect Mood: flat 05/14/2017 None Full Exam - General 1994 Psychiatric appearance Overall: well-groomed, good eye contact 05/14/2017 None Full Exam - ENT Constitutional general appearance Overall: well nourished 04/08/2017 None Full Exam - ENT Constitutional general appearance Overall: well developed 04/08/2017 None Full Exam - ENT Constitutional general appearance Overall: in no acute distress 04/08/2017 None Full Exam - ENT Ears/Nose/Throat otoscopic exam Overall: external auditory canals normal 04/08/2017 None Full Exam - ENT Ears/Nose/Throat otoscopic exam Left tympanic membrane: air -fluid level 04/08/2017 None Full Exam - ENT Ears/Nose/Throat otoscopic exam Right tympanic membrane: air-fluid level 04/08/2017 None Full Exam - ENT Ears/Nose/Throat lips/ teeth/gingiva Overall: benign lips 04/08/2017 None Full Exam - ENT Ears/Nose/Throat oropharynx Overall: oral mucosa clear 04/08/2017 None Full Exam - ENT Ears/Nose/Throat oropharynx Posterior Pharynx: clear post nasal drainage 04/08/2017 None Full Exam - ENT Ears/Nose/Throat oropharynx Posterior Pharynx: erythema 04/08/2017 None Full Exam - ENT Respiratory inspection Overall: no retractions 04/08/2017 None Full Exam - ENT Respiratory inspection Overall: normal rate None Full Exam - ENT Respiratory auscultation Overall: breath sounds clear bilaterally 04/08/2017 None Full Exam - ENT Cardiovascular auscultation of heart Rate: normal rate 04/08/2017 None Full Exam - ENT Cardiovascular auscultation of heart Rhythm: regular rhythm 04/08/2017 None Full Exam - ENT Lymphatic palpation of lymph nodes Overall: anterior cervical chain benign 04/08/2017 None Full Exam - ENT Lymphatic palpation of lymph nodes Overall: posterior cervical chain benign 04/08/2017 None Full Exam - ENT Neurologic mood and affect Overall: normal mood 04/08/2017 None Full Exam - ENT Neurologic mood and affect Overall: normal affect 04/08/2017 None Full Exam - ENT Neurologic orientation Overall: oriented to person, place and time 04/08/2017 None Full Exam - ENT Ears/Nose/Throat oropharynx Left tonsil: enlarged 04/08/2017 None Full Exam - ENT Ears/Nose/Throat oropharynx Left tonsil: erythematous 04/08/2017 None Full Exam - ENT Ears/Nose/Throat oropharynx Right tonsil: enlarged 04/08/2017 None Full Exam - ENT Ears/Nose/Throat oropharynx Right tonsil: erythematous 04/08/2017 None Full Exam - ENT Constitutional general appearance Overall: well nourished 08/25/2016 None Full Exam - ENT Constitutional general appearance Overall: well developed 08/25/2016 None Full Exam - ENT Constitutional general appearance Overall: in no acute distress 08/25/2016 None Full Exam - ENT Neurologic orientation Overall: oriented to person, place and time 08/25/2016 None Full Exam - ENT Integument inspection of skin Overall: no rash, lesions 08/25/2016 None Full Exam - ENT Lymphatic palpation of lymph nodes Overall: shotty lymphadenopathy 08/25/2016 None Full Exam - ENT Cardiovascular auscultation of heart Overall: normal heart sounds 08/25/2016 None Full Exam - ENT Cardiovascular auscultation of heart Overall: regular rate 08/25/2016 None Full Exam - ENT Respiratory inspection Overall: normal rate None Full Exam - ENT Respiratory inspection Overall: no retractions 08/25/2016 None Full Exam - ENT Respiratory auscultation Overall: breath sounds clear bilaterally 08/25/2016 None Full Exam - ENT Face and Head palpation Overall: no sinus tenderness 08/25/2016 None Full Exam - ENT Ears/Nose/Throat otoscopic exam Overall: tympanic membranes normal 08/25/2016 None Full Exam - ENT Ears/Nose/Throat otoscopic exam Overall: external auditory canals normal 08/25/2016 None Full Exam - ENT Ears/Nose/Throat oropharynx Left tonsil: enlarged 08/25/2016 None Full Exam - ENT Ears/Nose/Throat oropharynx Left tonsil: exudate 08/25/2016 None Full Exam - ENT Ears/Nose/Throat oropharynx Left tonsil: erythematous 08/25/2016 None Full Exam - ENT Ears/Nose/Throat oropharynx Right tonsil: enlarged 08/25/2016 None Full Exam - ENT Ears/Nose/Throat oropharynx Right tonsil: exudate 08/25/2016 None Full Exam - ENT Ears/Nose/Throat oropharynx Right tonsil: erythematous 08/25/2016 None Full Exam - ENT Ears/Nose/Throat oropharynx Posterior Pharynx: erythema 08/25/2016 None Full Exam - General 1994 Constitutional general appearance Overall: well developed 07/07/2016 None Full Exam - General 1994 Constitutional general appearance Overall: in no acute distress 07/07/2016 None Full Exam - General 1994 Constitutional general appearance Overall: well nourished 07/07/2016 None Full Exam - General 1994 Eyes conjunctiva /eyelids Overall: conjunctiva clear 07/07/2016 None Full Exam - General 1994 Eyes pupils and irises Overall: pupils equal, round, reactive to light and accomodation 07/07/2016 None Full Exam - General 1994 Respiratory auscultation Overall: breath sounds clear bilaterally 07/07/2016 None Full Exam - General 1994 Respiratory respiratory effort/rhythm Overall: no retractions 07/07/2016 None Full Exam - General 1994 Respiratory respiratory effort/rhythm Overall: normal rate 07/07/2016 None Full Exam - General 1994 Cardiovascular auscultation of heart Overall: regular rate 07/07/2016 None Full Exam - General 1994 Cardiovascular auscultation of heart Overall: normal heart sounds 07/07/2016 None Full Exam - General 1994 Musculoskeletal head and neck Overall: head atraumatic 07/07/2016 None Full Exam - General 1994 Integument inspection of skin Overall: no rash, lesions 07/07/2016 None Full Exam - General 1994 Neurologic cranial nerves Overall: crainial nerves 2 - 12 grossly intact 07/07/2016 None Full Exam - General 1994 Psychiatric orientation/consciousness Overall: oriented to person, place and time 07/07/2016 None Full Exam - General 1994 Psychiatric appearance Overall: well-groomed, good eye contact 07/07/2016 None Full Exam - General 1994 Psychiatric speech Overall: normal quality, no aphasia 07/07/2016 None Full Exam - General 1994 Psychiatric speech Overall: normal quality, quantity, rate 07/07/2016 None Full Exam - General 1994 Constitutional general appearance Overall: well developed 04/21/2016 None Full Exam - General 1994 Constitutional general appearance Overall: in no acute distress 04/21/2016 None Full Exam - General 1994 Constitutional general appearance Overall: well nourished 04/21/2016 None Full Exam - General 1994 Eyes conjunctiva /eyelids Overall: conjunctiva clear 04/21/2016 None Full Exam - General 1994 Ears/Nose/Throat lips/teeth/gingiva Overall: benign lips 04/21/2016 None Full Exam - General 1994 Ears/Nose/Throat lips/teeth/gingiva Overall: normal dentition 04/21/2016 None Full Exam - General 1994 Respiratory respiratory effort/rhythm Overall: no retractions 04/21/2016 None Full Exam - General 1994 Respiratory respiratory effort/rhythm Overall: normal rate 04/21/2016 None Full Exam - General 1994 Musculoskeletal head and neck Overall: head atraumatic 04/21/2016 None Full Exam - General 1994 Integument inspection of skin Location: left hand 04/21/2016 None Full Exam - General 1994 Integument inspection of skin Location: right hand 04/21/2016 None Full Exam - General 1994 Integument inspection of skin Rash/Lesions: patch 04/21/2016 None Full Exam - General 1994 Integument inspection of skin Pigmentation: erythematous 04/21/2016 None Full Exam - General 1994 Integument inspection of skin Consistency: dry 04/21/2016 None Full Exam - General 1994 Neurologic cranial nerves Overall: crainial nerves 2 - 12 grossly intact 04/21/2016 None Full Exam - General 1994 Psychiatric orientation/consciousness Overall: oriented to person, place and time 04/21/2016 None Full Exam - General 1994 Psychiatric mood and affect Overall: normal mood and affect 04/21/2016 None Full Exam - General 1994 Psychiatric mood and affect Mood: flat 04/21/2016 None Full Exam - General 1994 Psychiatric appearance Overall: well-groomed, good eye contact 04/21/2016 None Full Exam - General 1994 Constitutional general appearance Overall: well developed 02/27/2016 None Full Exam - General 1994 Constitutional general appearance Overall: in no acute distress 02/27/2016 None Full Exam - General 1994 Constitutional general appearance Overall: well nourished 02/27/2016 None Full Exam - General 1994 Eyes conjunctiva /eyelids Overall: conjunctiva clear 02/27/2016 None Full Exam - General 1994 Ears/Nose/Throat lips/teeth/gingiva Overall: benign lips 02/27/2016 None Full Exam - General 1994 Ears/Nose/Throat lips/teeth/gingiva Overall: normal dentition 02/27/2016 None Full Exam - General 1994 Respiratory auscultation Overall: breath sounds clear bilaterally 02/27/2016 None Full Exam - General 1994 Respiratory respiratory effort/rhythm Overall: no retractions 02/27/2016 None Full Exam - General 1994 Respiratory respiratory effort/rhythm Overall: normal rate 02/27/2016 None Full Exam - General 1994 Cardiovascular auscultation of heart Overall: regular rate 02/27/2016 None Full Exam - General 1994 Cardiovascular auscultation of heart Overall: normal heart sounds 02/27/2016 None Full Exam - General 1994 Musculoskeletal head and neck Overall: head atraumatic 02/27/2016 None Full Exam - General 1994 Neurologic cranial nerves Overall: crainial nerves 2 - 12 grossly intact 02/27/2016 None Full Exam - General 1994 Psychiatric orientation/consciousness Overall: oriented to person, place and time 02/27/2016 None Full Exam - General 1994 Psychiatric appearance Overall: well-groomed, good eye contact 02/27/2016 None Full Exam - General 1994 Ears/Nose/Throat oral cavity/pharynx/larynx Overall: oral mucosa clear 02/27/2016 None Full Exam - General 1994 Integument inspection of skin Location: left hand 02/27/2016 None Full Exam - General 1994 Integument inspection of skin Location: right hand 02/27/2016 None Full Exam - General 1994 Integument inspection of skin Rash/Lesions: patch 02/27/2016 None Full Exam - General 1994 Integument inspection of skin Pigmentation: erythematous 02/27/2016 None Full Exam - General 1994 Integument inspection of skin Consistency: dry 02/27/2016 None Full Exam - General 1994 Psychiatric mood and affect Overall: normal mood and affect 02/27/2016 None Full Exam - General 1994 Psychiatric mood and affect Mood: flat 02/27/2016 None Full Exam - General 1994 Constitutional general appearance Overall: well developed 02/04/2016 None Full Exam - General 1994 Constitutional general appearance Overall: in no acute distress 02/04/2016 None Full Exam - General 1994 Constitutional general appearance Overall: well nourished 02/04/2016 None Full Exam - General 1994 Eyes conjunctiva /eyelids Overall: conjunctiva clear 02/04/2016 None Full Exam - General 1994 Eyes pupils and irises Overall: pupils equal, round, reactive to light and accomodation 02/04/2016 None Full Exam - General 1994 Respiratory auscultation Overall: breath sounds clear bilaterally 02/04/2016 None Full Exam - General 1994 Respiratory respiratory effort/rhythm Overall: no retractions 02/04/2016 None Full Exam - General 1994 Respiratory respiratory effort/rhythm Overall: normal rate 02/04/2016 None Full Exam - General 1994 Cardiovascular auscultation of heart Overall: regular rate 02/04/2016 None Full Exam - General 1994 Cardiovascular auscultation of heart Overall: normal heart sounds 02/04/2016 None Full Exam - General 1994 Musculoskeletal head and neck Overall: head atraumatic 02/04/2016 None Full Exam - General 1994 Integument inspection of skin Overall: no rash, lesions 02/04/2016 None Full Exam - General 1994 Neurologic cranial nerves Overall: crainial nerves 2 - 12 grossly intact 02/04/2016 None Full Exam - General 1994 Psychiatric orientation/consciousness Overall: oriented to person, place and time 02/04/2016 None Full Exam - General 1994 Psychiatric mood and affect Mood: depressed 02/04/2016 None Full Exam - General 1994 Psychiatric appearance Overall: well-groomed, good eye contact 02/04/2016 None Full Exam - General 1994 Psychiatric speech Overall: normal quality, no aphasia 02/04/2016 None Full Exam - General 1994 Psychiatric speech Overall: normal quality, quantity, rate 02/04/2016 None Full Exam - General 1994 Constitutional general appearance Evidence of Distress: tearful 02/04/2016 None Full Exam - General 1994 Ears/Nose/Throat lips/teeth/gingiva Overall: benign lips 02/04/2016 None Full Exam - General 1994 Ears/Nose/Throat lips/teeth/gingiva Overall: normal dentition 02/04/2016 None Full Exam - General 1994 Constitutional general appearance Overall: well developed 12/04/2015 None Full Exam - General 1994 Constitutional general appearance Overall: in no acute distress 12/04/2015 None Full Exam - General 1994 Constitutional general appearance Overall: well nourished 12/04/2015 None Full Exam - General 1994 Eyes conjunctiva /eyelids Overall: conjunctiva clear 12/04/2015 None Full Exam - General 1994 Eyes pupils and irises Overall: pupils equal, round, reactive to light and accomodation 12/04/2015 None Full Exam - General 1994 Respiratory auscultation Overall: breath sounds clear bilaterally 12/04/2015 None Full Exam - General 1994 Respiratory respiratory effort/rhythm Overall: no retractions 12/04/2015 None Full Exam - General 1994 Respiratory respiratory effort/rhythm Overall: normal rate 12/04/2015 None Full Exam - General 1994 Cardiovascular auscultation of heart Overall: regular rate 12/04/2015 None Full Exam - General 1994 Cardiovascular auscultation of heart Overall: normal heart sounds 12/04/2015 None Full Exam - General 1994 Integument inspection of skin Overall: no rash, lesions 12/04/2015 None Full Exam - General 1994 Neurologic cranial nerves Overall: crainial nerves 2 - 12 grossly intact 12/04/2015 None Full Exam - General 1994 Psychiatric orientation/consciousness Overall: oriented to person, place and time 12/04/2015 None Full Exam - General 1994 Psychiatric mood and affect Mood: depressed 12/04/2015 None Full Exam - General 1994 Musculoskeletal head and neck Overall: head atraumatic 12/04/2015 None Full Exam - General 1994 Psychiatric appearance Overall: well-groomed, good eye contact 12/04/2015 None Full Exam - General 1994 Psychiatric speech Overall: normal quality, no aphasia 12/04/2015 None Full Exam - General 1994 Psychiatric speech Overall: normal quality, quantity, rate 12/04/2015 None Full Exam - General 1994 Constitutional general appearance Overall: well developed 11/01/2015 None Full Exam - General 1994 Constitutional general appearance Overall: in no acute distress 11/01/2015 None Full Exam - General 1994 Constitutional general appearance Overall: well nourished 11/01/2015 None Full Exam - General 1994 Eyes conjunctiva /eyelids Overall: conjunctiva clear 11/01/2015 None Full Exam - General 1994 Eyes pupils and irises Overall: pupils equal, round, reactive to light and accomodation 11/01/2015 None Full Exam - General 1994 Respiratory auscultation Overall: breath sounds clear bilaterally 11/01/2015 None Full Exam - General 1994 Respiratory respiratory effort/rhythm Overall: no retractions 11/01/2015 None Full Exam - General 1994 Respiratory respiratory effort/rhythm Overall: normal rate 11/01/2015 None Full Exam - General 1994 Cardiovascular auscultation of heart Overall: regular rate 11/01/2015 None Full Exam - General 1994 Cardiovascular auscultation of heart Overall: normal heart sounds 11/01/2015 None Full Exam - General 1994 Neurologic cranial nerves Overall: crainial nerves 2 - 12 grossly intact 11/01/2015 None Full Exam - General 1994 Psychiatric orientation/consciousness Overall: oriented to person, place and time 11/01/2015 None Full Exam - General 1994 Psychiatric mood and affect Mood: depressed 11/01/2015 None Full Exam - General 1994 Psychiatric mood and affect Affect: mood congruent 11/01/2015 None Full Exam - General 1994 Integument inspection of skin Overall: no rash, lesions 11/01/2015 None Full Exam - General 1994 Constitutional general appearance Overall: well developed 08/31/2015 None Full Exam - General 1994 Constitutional general appearance Overall: in no acute distress 08/31/2015 None Full Exam - General 1994 Constitutional general appearance Overall: well nourished 08/31/2015 None Full Exam - General 1994 Eyes conjunctiva /eyelids Overall: conjunctiva clear 08/31/2015 None Full Exam - General 1994 Eyes pupils and irises Overall: pupils equal, round, reactive to light and accomodation 08/31/2015 None Full Exam - General 1994 Respiratory auscultation Overall: breath sounds clear bilaterally 08/31/2015 None Full Exam - General 1994 Respiratory respiratory effort/rhythm Overall: no retractions 08/31/2015 None Full Exam - General 1994 Respiratory respiratory effort/rhythm Overall: normal rate 08/31/2015 None Full Exam - General 1994 Cardiovascular auscultation of heart Overall: regular rate 08/31/2015 None Full Exam - General 1994 Cardiovascular auscultation of heart Overall: normal heart sounds 08/31/2015 None Full Exam - General 1994 Cardiovascular auscultation of heart Overall: no murmurs 08/31/2015 None Full Exam - General 1994 Abdomen abdominal exam Overall: no tenderness 08/31/2015 None Full Exam - General 1994 Abdomen abdominal exam Overall: normal bowel sounds 08/31/2015 None Full Exam - General 1994 Musculoskeletal digits and nails Digits: edema 08/31/2015 None Full Exam - General 1994 Musculoskeletal digits and nails Overall: no clubbing 08/31/2015 None Full Exam - General 1994 Musculoskeletal upper extremity Overall: normal shoulder 08/31/2015 None Full Exam - General 1994 Musculoskeletal upper extremity Overall: normal elbow 08/31/2015 None Full Exam - General 1994 Musculoskeletal upper extremity Overall: normal wrist 08/31/2015 None Full Exam - General 1994 Musculoskeletal lower extremity Inspection - knee: swelling 08/31/2015 None Full Exam - General 1994 Musculoskeletal lower extremity Inspection - lower leg: swelling 08/31/2015 None Full Exam - General 1994 Musculoskeletal lower extremity Inspection - foot: swelling 08/31/2015 None Full Exam - General 1994 Integument inspection of skin Overall: few scattered moles, no gross abnormalities 08/31/2015 None Full Exam - General 1994 Neurologic cranial nerves Overall: crainial nerves 2 - 12 grossly intact 08/31/2015 None Full Exam - General 1994 Psychiatric orientation/consciousness Overall: oriented to person, place and time 08/31/2015 None Full Exam - General 1994 Psychiatric mood and affect Mood: depressed 08/31/2015 None Full Exam - General 1994 Psychiatric mood and affect Affect: mood congruent 08/31/2015 None Full Exam - General 1994 Musculoskeletal head and neck Cervical Spine: tender 08/31/2015 None Full Exam - General 1994 Constitutional general appearance Overall: well developed 07/27/2015 None Full Exam - General 1994 Constitutional general appearance Overall: in no acute distress 07/27/2015 None Full Exam - General 1994 Constitutional general appearance Overall: well nourished 07/27/2015 None Full Exam - General 1994 Eyes conjunctiva /eyelids Overall: conjunctiva clear 07/27/2015 None Full Exam - General 1994 Eyes pupils and irises Overall: pupils equal, round, reactive to light and accomodation 07/27/2015 None Full Exam - General 1994 Neck thyroid Overall: normal size 05/2016 None Full Exam - General 1994 Respiratory auscultation Overall: breath sounds clear bilaterally 07/27/2015 None Full Exam - General 1994 Respiratory respiratory effort/rhythm Overall: no retractions 07/27/2015 None Full Exam - General 1994 Respiratory respiratory effort/rhythm Overall: normal rate 07/27/2015 None Full Exam - General 1994 Cardiovascular auscultation of heart Overall: regular rate 07/27/2015 None Full Exam - General 1994 Cardiovascular auscultation of heart Overall: normal heart sounds 07/27/2015 None Full Exam - General 1994 Cardiovascular auscultation of heart Overall: no murmurs 07/27/2015 None Full Exam - General 1994 Abdomen abdominal exam Overall: no tenderness 07/27/2015 None Full Exam - General 1994 Abdomen abdominal exam Overall: normal bowel sounds 07/27/2015 None Full Exam - General 1994 Musculoskeletal digits and nails Overall: no clubbing 07/27/2015 None Full Exam - General 1994 Musculoskeletal digits and nails Digits: edema 07/27/2015 None Full Exam - General 1994 Musculoskeletal upper extremity Overall: normal shoulder 07/27/2015 None Full Exam - General 1994 Musculoskeletal upper extremity Overall: normal elbow 07/27/2015 None Full Exam - General 1994 Musculoskeletal upper extremity Overall: normal wrist 07/27/2015 None Full Exam - General 1994 Musculoskeletal lower extremity Inspection - knee: swelling 07/27/2015 None Full Exam - General 1994 Musculoskeletal lower extremity Inspection - lower leg: swelling 07/27/2015 None Full Exam - General 1994 Musculoskeletal lower extremity Inspection - foot: swelling 07/27/2015 None Full Exam - General 1994 Integument inspection of skin Overall: few scattered moles, no gross abnormalities 07/27/2015 None Full Exam - General 1994 Neurologic cranial nerves Overall: crainial nerves 2 - 12 grossly intact 07/27/2015 None Full Exam - General 1994 Psychiatric orientation/consciousness Overall: oriented to person, place and time 07/27/2015 None Full Exam - General 1994 Constitutional general appearance Overall: well developed 04/19/2015 None Full Exam - General 1994 Constitutional general appearance Overall: in no acute distress 04/19/2015 None Full Exam - General 1994 Constitutional general appearance Overall: well nourished 04/19/2015 None Full Exam - General 1994 Eyes conjunctiva /eyelids Overall: conjunctiva clear 04/19/2015 None Full Exam - General 1994 Eyes pupils and irises Overall: pupils equal, round, reactive to light and accomodation 04/19/2015 None Full Exam - General 1994 Neck thyroid Overall: normal size 10/2014 None Full Exam - General 1994 Respiratory auscultation Overall: breath sounds clear bilaterally 04/19/2015 None Full Exam - General 1994 Respiratory respiratory effort/rhythm Overall: no retractions 04/19/2015 None Full Exam - General 1994 Respiratory respiratory effort/rhythm Overall: normal rate 04/19/2015 None Full Exam - General 1994 Cardiovascular auscultation of heart Overall: regular rate 04/19/2015 None Full Exam - General 1994 Cardiovascular auscultation of heart Overall: normal heart sounds 04/19/2015 None Full Exam - General 1994 Cardiovascular auscultation of heart Overall: no murmurs 04/19/2015 None Full Exam - General 1994 Abdomen abdominal exam Overall: no tenderness 04/19/2015 None Full Exam - General 1994 Abdomen abdominal exam Overall: normal bowel sounds 04/19/2015 None Full Exam - General 1994 Musculoskeletal digits and nails Overall: no clubbing 04/19/2015 None Full Exam - General 1994 Integument inspection of skin Overall: few scattered moles, no gross abnormalities 04/19/2015 None Full Exam - General 1994 Neurologic cranial nerves Overall: crainial nerves 2 - 12 grossly intact 04/19/2015 None Full Exam - General 1994 Psychiatric orientation/consciousness Overall: oriented to person, place and time 04/19/2015 None Full Exam - General 1994 Musculoskeletal digits and nails Digits: edema 04/19/2015 None Full Exam - General 1994 Musculoskeletal upper extremity Overall: normal shoulder 04/19/2015 None Full Exam - General 1994 Musculoskeletal upper extremity Overall: normal elbow 04/19/2015 None Full Exam - General 1994 Musculoskeletal upper extremity Overall: normal wrist 04/19/2015 None Full Exam - General 1994 Musculoskeletal lower extremity Inspection - knee: swelling 04/19/2015 None Full Exam - General 1994 Musculoskeletal lower extremity Inspection - lower leg: swelling 04/19/2015 None Full Exam - General 1994 Musculoskeletal lower extremity Inspection - foot: swelling 04/19/2015 None Full Exam - General 1994 Constitutional general appearance Overall: well developed 01/15/2015 None Full Exam - General 1994 Constitutional general appearance Overall: in no acute distress 01/15/2015 None Full Exam - General 1994 Constitutional general appearance Overall: well nourished 01/15/2015 None Full Exam - General 1994 Psychiatric orientation/consciousness Overall: oriented to person, place and time 01/15/2015 None Full Exam - General 1994 Neurologic cranial nerves Overall: crainial nerves 2 - 12 grossly intact 01/15/2015 None Full Exam - General 1994 Integument inspection of skin Overall: few scattered moles, no gross abnormalities 01/15/2015 None Full Exam - General 1994 Musculoskeletal digits and nails Overall: no clubbing 01/15/2015 None Full Exam - General 1994 Abdomen abdominal exam Overall: no tenderness 01/15/2015 None Full Exam - General 1994 Abdomen abdominal exam Overall: normal bowel sounds 01/15/2015 None Full Exam - General 1994 Cardiovascular auscultation of heart Overall: regular rate 01/15/2015 None Full Exam - General 1994 Cardiovascular auscultation of heart Overall: normal heart sounds 01/15/2015 None Full Exam - General 1994 Cardiovascular auscultation of heart Overall: no murmurs 01/15/2015 None Full Exam - General 1994 Respiratory auscultation Overall: breath sounds clear bilaterally 01/15/2015 None Full Exam - General 1994 Respiratory respiratory effort/rhythm Overall: no retractions 01/15/2015 None Full Exam - General 1994 Respiratory respiratory effort/rhythm Overall: normal rate 01/15/2015 None Full Exam - General 1994 Eyes conjunctiva /eyelids Overall: conjunctiva clear 01/15/2015 None Full Exam - General 1994 Eyes pupils and irises Overall: pupils equal, round, reactive to light and accomodation 01/15/2015 None Full Exam - General 1994 Neck thyroid Overall: normal size 08/2014 None Full Exam - General 1994 Constitutional general appearance Overall: well nourished 02/21/2014 None Full Exam - General 1995 Constitutional general appearance Overall: well developed 02/21/2014 None Full Exam - General 1994 Constitutional general appearance Overall: in no acute distress 02/21/2014 None Full Exam - General 1994 Eyes pupils and irises Overall: pupils equal, round, reactive to light and accomodation 02/21/2014 None Full Exam - General 1994 Cardiovascular auscultation of heart Overall: regular rate 02/21/2014 None Full Exam - General 1994 Cardiovascular auscultation of heart Overall: normal heart sounds 02/21/2014 None Full Exam - General 1994 Cardiovascular auscultation of heart Overall: no murmurs 02/21/2014 None Full Exam - General 1994 Psychiatric orientation/consciousness Overall: oriented to person, place and time 02/21/2014 None Full Exam - General 1995 Integument inspection of skin Dermatitis: pustule 02/21/2014 on forehead on left and over left eyebrow and glabella on left, over left and right wrist over snuff box on right and left. Full Exam - Dermatology Constitutional general appearance Overall: well nourished 11/15/2013 None Full Exam - Dermatology Constitutional general appearance Overall: well developed 11/15/2013 None Full Exam - Dermatology Constitutional general appearance Overall: in no acute distress 11/15/2013 None Full Exam - Dermatology Constitutional general appearance Overall: of normal body habitus 11/15/2013 None Full Exam - Dermatology Constitutional general appearance Overall: well groomed 11/15/2013 None Full Exam - Dermatology Psychiatric orientation Overall: oriented to person, place and time 11/15/2013 None Full Exam - Dermatology Integument insp & palp - chest/axillae Location: on the right axilla 11/15/2013 irritated skin tag right axilla Full Exam - ENT Constitutional general appearance Overall: well nourished 11/10/2013 None Full Exam - ENT Constitutional general appearance Overall: well developed 11/10/2013 None Full Exam - ENT Constitutional general appearance Overall: in no acute distress 11/10/2013 None Full Exam - ENT Ears/Nose/Throat otoscopic exam Overall: external auditory canals normal 11/10/2013 None Full Exam - ENT Ears/Nose/Throat otoscopic exam Overall: tympanic membranes normal 11/10/2013 None Full Exam - ENT Ears/Nose/Throat oropharynx Posterior Pharynx: erythema 11/10/2013 None Full Exam - ENT Face and Head palpation Overall: no sinus tenderness 11/10/2013 None Full Exam - ENT Respiratory inspection Overall: no retractions 11/10/2013 None Full Exam - ENT Respiratory inspection Overall: normal rate None Full Exam - ENT Respiratory auscultation Overall: breath sounds clear bilaterally 11/10/2013 None Full Exam - ENT Cardiovascular auscultation of heart Overall: regular rate 11/10/2013 None Full Exam - ENT Cardiovascular auscultation of heart Overall: normal heart sounds 11/10/2013 None Full Exam - ENT Cardiovascular auscultation of heart Overall: no murmurs 11/10/2013 None Full Exam - ENT Lymphatic palpation of lymph nodes Overall: anterior cervical chain benign 11/10/2013 None Full Exam - ENT Lymphatic palpation of lymph nodes Overall: posterior cervical chain benign 11/10/2013 None Full Exam - ENT Neurologic orientation Overall: oriented to person, place and time 11/10/2013 None Full Exam - ENT Integument inspection of skin Location: left hand 11/10/2013 None Full Exam - ENT Integument inspection of skin Location: right hand 11/10/2013 None Full Exam - ENT Integument inspection of skin Rash/Lesions: macule 11/10/2013 None Full Exam - ENT Integument inspection of skin Rash/Lesions: papule 11/10/2013 None Full Exam - ENT Integument inspection of skin Location: left leg 11/10/2013 None Full Exam - ENT Integument inspection of skin Location: right leg 11/10/2013 None Full Exam - ENT Integument inspection of skin Location: abdomen 11/10/2013 None Full Exam - ENT Neurologic orientation Overall: oriented to person, place and time 07/15/2013 None Full Exam - ENT Integument inspection of skin Overall: no rash, lesions 07/15/2013 None Full Exam - ENT Lymphatic palpation of lymph nodes Overall: anterior cervical chain benign 07/15/2013 None Full Exam - ENT Lymphatic palpation of lymph nodes Overall: posterior cervical chain benign 07/15/2013 None Full Exam - ENT Cardiovascular auscultation of heart Overall: regular rate 07/15/2013 None Full Exam - ENT Cardiovascular auscultation of heart Overall: normal heart sounds 07/15/2013 None Full Exam - ENT Cardiovascular auscultation of heart Overall: no murmurs 07/15/2013 None Full Exam - ENT Respiratory auscultation Overall: breath sounds clear bilaterally 07/15/2013 None Full Exam - ENT Respiratory inspection Overall: normal rate None Full Exam - ENT Respiratory inspection Overall: no retractions 07/15/2013 None Full Exam - ENT Face and Head palpation Overall: no sinus tenderness 07/15/2013 None Full Exam - ENT Ears/Nose/Throat otoscopic exam Overall: external auditory canals normal 07/15/2013 None Full Exam - ENT Ears/Nose/Throat otoscopic exam Overall: tympanic membranes normal 07/15/2013 None Full Exam - ENT Ears/Nose/Throat oropharynx Posterior Pharynx: erythema 07/15/2013 None Full Exam - ENT Constitutional general appearance Overall: well nourished 07/15/2013 None Full Exam - ENT Constitutional general appearance Overall: well developed 07/15/2013 None Full Exam - ENT Constitutional general appearance Overall: in no acute distress 07/15/2013 None Procedures Procedure Codes Date REMOVAL OF SKIN TAGS <W/15 CPT-4: 55925 11/15/2013 Vital Signs Date Vital 10/23/2017 Blood Pressure 1: 124/78 Code : 8480-6 BMI: 29.5 Code : 43869-4 Heart Rate 1 : 91 bpm Height: 5'6" SpO2: 98% Weight: 183 lbs 07/06/2017 Blood Pressure 1: 122/82 Code : 8480-6 Heart Rate 1: 99 bpm SpO2: 98% 05/14/2017 Blood Pressure 1: 124/78 Code : 8480-6 BMI: 31.2 Code : 84915-2 Heart Rate 1 : 91 bpm Height: 5'6" SpO2: 97% Weight: 193 lbs 04/08/2017 Blood Pressure 1: 122/72 Code : 8480-6 BMI: 30.3 Code : 35978-2 Heart Rate 1 : 86 bpm Height: 5'6" SpO2: 96% Weight: 188 lbs 08/25/2016 Blood Pressure 1: 110/80 Code : 8480-6 Heart Rate 1: 83 bpm Height: SpO2: 98% Temperature: 36.7 (C) / 98.0 (F) Weight: 07/07/2016 Blood Pressure 1: 122/64 Code : 8480-6 BMI: 28.7 Code : 55737-1 Heart Rate 1 : 77 bpm Height: 5'6" SpO2: 98% Weight: 178 lbs 04/21/2016 Blood Pressure 1: 11474 Code : 8480-6 BMI: 29.1 Code : 94119-4 Heart Rate 1 : 66 bpm Height: 5'6" Weight: 180 lbs 02/27/2016 Blood Pressure 1: 112 Code : 8480-6 BMI: 30.0 Code : 96188-4 Heart Rate 1 : 62 bpm Height: 5'6" SpO2: 99% Weight: 186 lbs 02/04/2016 Blood Pressure 1: 116/72 Code : 8480-6 BMI: 30.2 Code : 24973-0 Heart Rate 1 : 102 bpm Height: 5'6" SpO2: 95% Weight: 187 lbs 12/04/2015 Blood Pressure 1: 110/78 Code : 8480-6 BMI: 30.8 Code : 68937-9 Heart Rate 1 : 88 bpm Height: 5'6" SpO2: 98% Weight: 191 lbs 11/01/2015 Blood Pressure 1: 134/80 Code : 8480-6 BMI: 31.8 Code : 91028-2 Heart Rate 1 : 92 bpm Height: 5'6" SpO2: 99% Weight: 197 lbs 08/31/2015 Blood Pressure 1: 130/84 Code : 8480-6 BMI: 31.5 Code : 54274-5 Heart Rate 1 : 85 bpm Height: 5'6" SpO2: 96% Weight: 195 lbs 07/27/2015 Blood Pressure 1: 134/68 Code : 8480-6 BMI: 30.7 Code : 04782-8 Heart Rate 1 : 84 bpm Height: 5'6" SpO2: 98% Weight: 190 lbs 04/19/2015 Blood Pressure 1: 100/60 Code : 8480-6 BMI: 29.7 Code : 71598-8 Heart Rate 1 : 80 bpm Height: 5'6" SpO2: 94% Weight: 184 lbs 03/12/2015 Blood Pressure 1: 120/68 Code : 8480-6 BMI: 29.7 Code : 68919-4 Heart Rate 1 : 83 bpm Height: 5'6" SpO2: 99% Weight: 184 lbs 01/15/2015 Blood Pressure 1: 128/80 Code : 8480-6 BMI: 29.1 Code : 48373-1 Heart Rate 1 : 88 bpm Height: 5'6" Weight: 180 lbs 02/21/2014 Blood Pressure 1: 128/64 Code : 8480-6 BMI: 26.5 Code : 68990-1 Heart Rate 1 : 76 bpm Height: 5'6" Weight: 164 lbs 11/15/2013 Blood Pressure 1: 120/70 Code : 8480-6 Heart Rate 1: 72 bpm 11/10/2013 Blood Pressure 1: 92/62 Code : 8480-6 BMI: 25.7 Code : 31391-2 Heart Rate 1 : 76 bpm Height: 5'6" Temperature: 36.9 (C) / 98.5 (F) Weight: 159 lbs 07/15/2013 Blood Pressure 1: 118/78 Code : 8480-6 BMI: 26.8 Code : 34365-6 Heart Rate 1 : 80 bpm Height: 5'6" Temperature: 37.1 (C) / 98.8 (F) Weight: 166 lbs Functional Status No Functional Status data History of Present Illness Symptom Name Status Result Effective Date Notes depression Quality constant 10/23/2017 None depression Quality worsening 10/23/2017 None depression Onset and Resolution ongoing 10/23/2017 None depression Onset of Symptom 2 years ago 10/23/2017 None depression Pertinent Findings depressed mood 10/23/2017 None weight gain/obesity Location globally 10/23/2017 None weight gain/obesity Quality constant 10/23/2017 None weight gain/obesity Quality stable 10/23/2017 None weight gain/obesity Onset and Resolution ongoing 10/23/2017 None weight gain/obesity Pertinent Findings depressed mood 10/23/2017 None fatigue Onset and Resolution ongoing 10/23/2017 None fatigue Onset of Symptom _ months ago 10/23/2017 None fatigue Pertinent Findings depressed mood 10/23/2017 None fatigue Pertinent Findings insomnia 10/23/2017 None fatigue Pertinent Findings nausea 10/23/2017 None fatigue Pertinent Findings weakness 10/23/2017 None fatigue Pertinent Findings Denies weight loss 10/23/2017 None edema Onset and Resolution ongoing 10/23/2017 None edema Onset of Symptom _ months ago 10/23/2017 None edema Limitation on Activities does not limit activities 10/23/2017 None edema Quality intermittent 10/23/2017 None edema Quality non-pitting 10/23/2017 None edema Quality painless 10/23/2017 None edema Location diffusely 10/23/2017 None edema Pertinent Findings Denies weight loss 10/23/2017 None edema Pertinent Findings Denies tachypnea 10/23/2017 None depression Pertinent Findings anxiety 10/23/2017 None depression Pertinent Findings exhaustion 10/23/2017 None depression Pertinent Findings hopelessness 10/23/2017 None depression Pertinent Findings helplessness 10/23/2017 None depression Pertinent Findings worthlessness 10/23/2017 None depression Quality constant 05/14/2017 None depression Quality worsening 05/14/2017 None depression Onset and Resolution ongoing 05/14/2017 None depression Onset of Symptom 2 years ago 05/14/2017 None depression Pertinent Findings depressed mood 05/14/2017 None weight gain/obesity Location globally 05/14/2017 None weight gain/obesity Quality constant 05/14/2017 None weight gain/obesity Quality stable 05/14/2017 None weight gain/obesity Onset and Resolution ongoing 05/14/2017 None weight gain/obesity Pertinent Findings depressed mood 05/14/2017 None fatigue Onset and Resolution ongoing 05/14/2017 None fatigue Onset of Symptom _ months ago 05/14/2017 None fatigue Pertinent Findings depressed mood 05/14/2017 None fatigue Pertinent Findings insomnia 05/14/2017 None fatigue Pertinent Findings nausea 05/14/2017 None fatigue Pertinent Findings weakness 05/14/2017 None fatigue Pertinent Findings Denies weight loss 05/14/2017 None sore throat Location diffusely 04/08/2017 None sore throat Quality aching 04/08/2017 None sore throat Quality constant 04/08/2017 None sore throat Quality scratchy 04/08/2017 None sore throat Quality burning 04/08/2017 None sore throat Onset and Resolution ongoing 04/08/2017 None sore throat Location on the left 08/25/2016 None sore throat Location on the right 08/25/2016 None sore throat Quality acute 08/25/2016 None sore throat Onset and Resolution ongoing 08/25/2016 None sore throat Onset of Symptom 5 days ago 08/25/2016 None sore throat Limitation on Activities limits oral intake 08/25/2016 None sore throat Frequency of Episodes increasing 08/25/2016 None sore throat Significant Medical Conditions allergic rhinitis 08/25/2016 None sore throat Triggers swallowing 08/25/2016 None sore throat Pertinent Findings Denies cough 08/25/2016 None sore throat Pertinent Findings fever 08/25/2016 None medication follow up Additional Comments medication use 07/07/2016 None medication follow up Location oral intake 07/07/2016 None medication follow up Quality chronic 07/07/2016 None medication follow up Significant Past Medical History Other: _ 07/07/2016 None rash Location-Major on the arms 04/21/2016 None rash Color red 2015 None rash Onset and Resolution ongoing 04/21/2016 None rash Location-Major on the hands 02/27/2016 None rash Color red 2015 None rash Onset and Resolution sudden in onset 02/27/2016 None rash Onset of Symptom 2 weeks ago 02/27/2016 None rash Pertinent Findings itching 02/27/2016 None depression Quality constant 02/04/2016 None depression Quality worsening 02/04/2016 None depression Onset and Resolution ongoing 02/04/2016 None depression Onset of Symptom 2 years ago 02/04/2016 None depression Pertinent Findings depressed mood 02/04/2016 None depression Quality constant 12/04/2015 None depression Quality worsening 12/04/2015 None depression Onset of Symptom 2 years ago 12/04/2015 None depression Pertinent Findings depressed mood 12/04/2015 None weight gain/obesity Location globally 12/04/2015 None weight gain/obesity Quality constant 12/04/2015 None weight gain/obesity Onset and Resolution ongoing 12/04/2015 None weight gain/obesity Pertinent Findings depressed mood 12/04/2015 None neck pain Location diffusely 12/04/2015 None neck pain Quality aching 12/04/2015 None neck pain Quality constant 12/04/2015 None neck pain Quality dull 12/04/2015 None neck pain Onset of Symptom 2 months ago 12/04/2015 None neck pain Frequency of Episodes daily 12/04/2015 None depression Onset and Resolution ongoing 12/04/2015 None neck pain Onset and Resolution ongoing 12/04/2015 None weight gain/obesity Quality stable 12/04/2015 None depression Quality constant 11/01/2015 None depression Quality worsening 11/01/2015 None depression Onset and Resolution gradual in onset 11/01/2015 None depression Onset of Symptom 2 years ago 11/01/2015 None depression Pertinent Findings depressed mood 11/01/2015 None weight gain/obesity Location globally 11/01/2015 None weight gain/obesity Quality constant 11/01/2015 None weight gain/obesity Onset and Resolution ongoing 11/01/2015 None weight gain/obesity Pertinent Findings depressed mood 11/01/2015 None neck pain Location diffusely 11/01/2015 None neck pain Quality aching 11/01/2015 None neck pain Quality constant 11/01/2015 None neck pain Quality dull 11/01/2015 None neck pain Onset and Resolution sudden in onset 11/01/2015 None neck pain Onset of Symptom 2 months ago 11/01/2015 None neck pain Frequency of Episodes daily 11/01/2015 None depression Quality constant 08/31/2015 None depression Onset and Resolution gradual in onset 08/31/2015 None depression Onset of Symptom 2 years ago 08/31/2015 None depression Quality worsening 08/31/2015 None depression Pertinent Findings depressed mood 08/31/2015 None weight gain/obesity Location globally 08/31/2015 None weight gain/obesity Quality constant 08/31/2015 None weight gain/obesity Onset and Resolution ongoing 08/31/2015 None weight gain/obesity Pertinent Findings depressed mood 08/31/2015 None neck pain Location diffusely 08/31/2015 None neck pain Quality constant 08/31/2015 None neck pain Quality dull 08/31/2015 None neck pain Quality aching 08/31/2015 None neck pain Onset and Resolution sudden in onset 08/31/2015 None neck pain Onset of Symptom 2 months ago 08/31/2015 None neck pain Frequency of Episodes daily 08/31/2015 None edema Onset and Resolution ongoing 07/27/2015 None edema Limitation on Activities moderately limits activities 07/27/2015 None edema Frequency of Episodes daily 07/27/2015 None edema Pertinent Findings Denies decreased urinary output 07/27/2015 None edema Pertinent Findings Denies weight loss 07/27/2015 None joint complaint Location diffusely 07/27/2015 knees, ankles, elbows joint complaint Quality acute 07/27/2015 None joint complaint Onset and Resolution ongoing 07/27/2015 None joint complaint Onset of Symptom 1 months ago 07/27/2015 None joint complaint Frequency of Episodes increasing 07/27/2015 trouble with swelling of legs off and on since . Injured left knee in february and has had trouble since then joint complaint Significant Medications NSAIDs 07/27/2015 started diclofenac last night from [employer] and it has helped joint complaint Triggers no known associated factors 07/27/2015 None joint complaint Alleviating Factors medication 07/27/2015 diclofenac edema Onset and Resolution ongoing 04/19/2015 None edema Frequency of Episodes daily 04/19/2015 None edema Pertinent Findings Denies decreased urinary output 04/19/2015 None edema Pertinent Findings Denies weight loss 04/19/2015 None edema Limitation on Activities moderately limits activities 04/19/2015 None joint complaint Location diffusely 04/19/2015 knees, ankles, elbows joint complaint Onset and Resolution ongoing 04/19/2015 None joint complaint Quality acute 04/19/2015 None joint complaint Onset of Symptom 1 months ago 04/19/2015 None joint complaint Frequency of Episodes increasing 04/19/2015 trouble with swelling of legs off and on since . Injured left knee in february and has had trouble since then joint complaint Significant Medications NSAIDs 04/19/2015 started diclofenac last night from [employer] and it has helped joint complaint Mechanism of injury unknown 04/19/2015 None joint complaint Triggers no known associated factors 04/19/2015 None joint complaint Alleviating Factors medication 04/19/2015 diclofenac knee pain Location on the left 03/12/2015 None knee pain Quality giving way 03/12/2015 None knee pain Quality popping 03/12/2015 None knee pain Quality sharp pain 03/12/2015 None knee pain Quality constant 03/12/2015 None knee pain Quality throbbing 03/12/2015 None knee pain Quality stable 03/12/2015 None knee pain Quality grinding 03/12/2015 None knee pain Onset and Resolution sudden in onset 03/12/2015 None knee pain Onset of Symptom 3 weeks ago 03/12/2015 None knee pain Frequency of Episodes daily 03/12/2015 None knee pain Severity moderate 03/12/2015 None knee pain Limitation on Activities allows weight bearing activity 03/12/2015 None knee pain Limitation on Activities able to do light activities without pain 03/12/2015 None knee pain Mechanism of injury twisting with a popping sensation 03/12/2015 None knee pain Alleviating Factors non weight bearing 03/12/2015 None knee pain Exacerbating Factors weight bearing 03/12/2015 None knee pain Pertinent Findings limping 03/12/2015 None knee pain Pertinent Findings locking 03/12/2015 None knee pain Pertinent Findings pain with movement 03/12/2015 None knee pain Pertinent Findings stiffness 03/12/2015 None knee pain Pertinent Findings swelling 03/12/2015 None weight gain/obesity Location globally 01/15/2015 None weight gain/obesity Quality worsening 01/15/2015 None weight gain/obesity Onset and Resolution ongoing 01/15/2015 None weight gain/obesity Onset of Symptom 10 months ago 01/15/2015 None weight gain/obesity Frequency of Episodes increasing 01/15/2015 None weight gain/obesity Diet is unchanged 01/15/2015 None weight gain/obesity Triggers unintentional weight gain 01/15/2015 hysterectomy in March weight gain/obesity Pertinent Findings depressed mood 01/15/2015 None weight gain/obesity Pertinent Findings Denies vomiting 01/15/2015 None rash Location-Head/Neck on the forehead 02/21/2014 appeared 2 days ago rash Location-Major on the hands 02/21/2014 both wrists right side appeared 1 week ago left side 3 days ago rash Quality new 02/21 None rash Color pink 2013 None rash Color red 2013 None rash Onset of Symptom 1 week ago 02/21/2014 None rash Triggers no known triggers 02/21/2014 None rash Pertinent Findings Denies fever 02/21/2014 None rash Pertinent Findings itching 02/21/2014 None rash Pertinent Findings Denies pain 02/21/2014 None acrochordon (skin tags) Location in the right axilla 11/15/2013 None acrochordon (skin tags) Quality acute 11/15/2013 None acrochordon (skin tags) Onset and Resolution ongoing 11/15/2013 irritated skin tag right axilla acrochordon (skin tags) Limitation on Activities does not limit activities 11/15/2013 None acrochordon (skin tags) Significant Medical Conditions shaving 11/15/2013 None acrochordon (skin tags) Significant Medical Conditions rubbing 11/15/2013 None acrochordon (skin tags) Triggers rubbing 11/15/2013 None acrochordon (skin tags) Pertinent Findings Denies bleeding 11/15/2013 None acrochordon (skin tags) Pertinent Findings pain 11/15/2013 None acrochordon (skin tags) Pertinent Findings tenderness 11/15/2013 None rash Location-Major on the hands 11/10/2013 None rash Location-Major on the abdomen 11/10/2013 thighs rash Pertinent Findings itching 11/10/2013 None sore throat Location diffusely 11/10/2013 None sore throat Quality acute 11/10/2013 None sore throat Quality scratchy 11/10/2013 None sore throat Onset and Resolution sudden in onset 11/10/2013 None sore throat Onset of Symptom 1 days ago 11/10/2013 None sore throat Location diffusely 07/15/2013 None sore throat Onset and Resolution sudden in onset 07/15/2013 None sore throat Quality acute 07/15/2013 None sore throat Quality scratchy 07/15/2013 None sore throat Pertinent Findings ill contacts 07/15/2013 None sore throat Pertinent Findings cough 07/15/2013 None sore throat Onset of Symptom 1 days ago 07/15/2013 None sore throat Limitation on Activities does not limit oral intake 07/15/2013 None sore throat Frequency of Episodes decreasing 07/15/2013 None sore throat Significant Medical Conditions allergic rhinitis 07/15/2013 None sore throat Triggers swallowing 07/15/2013 None Advance Directives No Advance Directive data Encounters Encounter Performer Location Codes Date ([id number]) [id number] EST. PATIENT, LEVEL IV Diagnosis: Dyshidrosis [pompholyx][ICD10: L30.1] Diagnosis: Inflammatory polyarthropathy[ICD10: M06.4] Diagnosis: Localized edema[ICD10: R60.0] [facility] CPT-4: 25135 10/23/2017 ([id number]) Miscellaneous no charge Diagnosis: Body mass index (BMI) 31.0-31.9, adult[ICD10: Z68.31] [facility] CPT-4: 80013 07/06/2017 ([id number]) 02744 EST. PATIENT, LEVEL IV Diagnosis: Rash and other nonspecific skin eruption[ICD10: R21] Diagnosis: 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[ICD10: M31.30] Diagnosis: Other fatigue[ICD10: R53.83] Diagnosis: Iron deficiency anemia, unspecified[ICD10: D50.9] [facility] CPT-4: 37910 05/14/2017 86431 EST. PATIENT, LEVEL III Diagnosis: Acute laryngopharyngitis[ICD10: J06.0] Diagnosis: Other allergic rhinitis[ICD10: J30.89] Gia Ingram MD, [facility] CPT-4: 72223 04/08/2017 ([id number]) 86283 EST. PATIENT, LEVEL III Diagnosis: Streptococcal pharyngitis[ICD10: J02.0] Maddy Ingram MD, [facility] CPT-4: 39702 08/25/2016 ([id number]) 82847 EST. 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 PATIENT, LEVEL III Diagnosis: Rash and other nonspecific skin eruption[ICD10: R21] Gia Ingram MD, [facility] CPT-4: 68057 04/21/2016 87013 EST. PATIENT, LEVEL IV Diagnosis: 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[ICD10: M31.30] Diagnosis: Rash and other nonspecific skin eruption[ICD10: R21] Gia Ingram MD, [facility] CPT-4: 24693 02/27/2016 93438 EST. PATIENT, LEVEL III Diagnosis: Other fatigue[ICD10: R53.83] Diagnosis: Major depressive disorder, single episode, moderate[ICD10: F32.1] Diagnosis: 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[ICD10: M31.30] Diagnosis: Other insomnia[ICD10: G47.09] Gia Ingram MD, [facility] CPT-4 : 24205 02/04/2016 58725 EST. PATIENT, LEVEL IV Diagnosis: 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[ICD10: M31.30] Diagnosis: Major depressive disorder, single episode, unspecified[ICD10: F32.9] Gia Ingram MD, [facility] CPT-4: 64122 12/04/2015 74945 EST. PATIENT, LEVEL IV Diagnosis: 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[ICD10: M31.30] Diagnosis: Major depressive disorder, single episode, unspecified[ICD10: F32.9] Gia Ingram MD, [facility] CPT-4: 18443 11/01/2015 ([id number]) 58773 EST. PATIENT, LEVEL IV Diagnosis: 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[ICD10: M31.30] Diagnosis: Body mass index (BMI) 31.0-31.9, adult[ICD10: Z68.31] Diagnosis: Major depressive disorder, single episode, unspecified[ICD10: F32.9] Maddy Ingram MD, [facility] CPT-4: 84261 08/31/2015 ([id number]) 87726 EST. 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 PATIENT, LEVEL IV Diagnosis: Premature 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[ICD9: 256.2] Diagnosis: Depression[ICD9: 311] Diagnosis: Abnormal weight gain[ICD9: 783.1] Diagnosis: Fatigue[ICD9: 780.79] [facility] CPT-4: 93975 01/15/2015 ([id number]) 63235 EST. PATIENT, LEVEL III Diagnosis: Rash[ICD9: 782.1] Diagnosis: CELLULITIS OF FACE[ICD9: 682.0] [facility] CPT- 4: 27596 02/21/2014 ([id number]) 65035 EST. PATIENT, LEVEL III Diagnosis: Dyshidrotic eczema[ICD9: 705.81] Diagnosis: ACUTE URI[ICD9: 465.9] [facility] CPT-4: 21291 11/10/2013 Office outpatient new 20 minutes Diagnosis: ACUTE URI[ICD9: 465.9] [facility] CPT-4: 16388 07/15/2013 Plan of Care Planned Activity Notes Codes Status Date Patient Education: Patient Medication Summary Completed 01/29/2018 Visit Plan: Inflammatory arthritis-check labs-refer to Dr Montgomery-continue methotrexate Dyshidrotic eczema-rx for betamethasone provided and instructed on use Swelling-check labs-consider prn dose of hctz-will call patient with labs results 10/23/2017 Patient Education: Patient Medication Summary Completed 10/23/2017 Care Plan: Referral Order SNOMED-CT : [id number] Pending 10/23/2017 Appointment: Nurse Visit 07/06/2017 Patient Education: Patient Medication Summary Completed 07/06/2017 Visit Plan: Sarina - recommended pt to continue with Humira - monitor symptoms. Iron deficiency - check cbc today. Fatigue - check thyroid function. Obesity - start phentermine 1 tab AM and 1/2 tab noon. 05/14/2017 Appointment: Eloina Ingram WPtel: [facility] [place] (15 min) Moderate 05/14/2017 Patient Education: Patient Medication Summary Completed 05/14/2017 Patient Education: Obesity Completed 05/14/2017 Appointment: Maddy Gutierres WPtel: [phone] [place] (30 min) Complex 04/27/2017 Referral: Humphreys, Georges [id number] Referral Initiated 04/20/2017 Visit Plan: URI - Pt advised to increase fluids, vitamin C. Discussed natural and expected course of this diagnosis and need to alert me if symptoms do not follow expected course, or if any worse. RX sent to patient' s pharmacy. Allergies - chronic - recommended pt to use allergy medication as prescribed. Pt has been counseled as to the appropriate use of the medication. Pt to call if allergy symptoms are not controlled with the medication. If using nasal spray, instructions as follows: Nasal spray- use twice daily, one spray per nostril twice daily, after 30 minutes, rinse out nose with saline spray.. Use opposite hand per nostril to spray in the nasal steroid allergy spray. 04/08/2017 Appointment: Gia Santos WPtel: [address] [place] [address] (15 min) Moderate 04/08/2017 Patient Education: Patient Medication Summary Completed 04/08/2017 Patient Education: Obesity Completed 04/08/2017 Care Plan: Referral Order SNOMED-CT : [id number] Pending 04/08/2017 Appointment: (30 min) Complex 09/03/2016 Visit Plan: Pharyngitis-Discussed natural and expected course of this diagnosis and need to alert me if symptoms do not follow expected course, or if any worse. Recommended salt water gargles as needed for pain. Tylenol/motrin as needed for fever/discomfort. 08/25/2016 Visit Plan: Pharyngitis-Discussed natural and expected course of this diagnosis and need to alert me if symptoms do not follow expected course, or if any worse. Recommended salt water gargles as needed for pain. Tylenol/motrin as needed for fever/discomfort. 08/25/2016 Appointment: Maddy Gutierres WPtel: [facility] [place] [phone] (10 min) Simple 08/25/2016 Patient Education: Patient Medication Summary Completed 08/25/2016 Visit Plan: Surgical menopause-symptomatic hot flashes- samples of premarin cream [place]-on humira-appt with hay stacker at in the next couple of weeks Npvilftalk-krnmkccv-ksdbhbld wellbutrin to twice daily Iron fhbalhbcrh-snrxar-dzbpdwfd oral iron 07/07/2016 Appointment: Maddy Gutierres WPtel: [phone] (30 min) Complex 07/07/2016 Patient Education: Patient Medication Summary Completed 07/07/2016 Patient Education: Obesity Completed 07/07/2016 Visit Plan: Rash - The patient was instructed in appropriate care. The patient was instructed to use the ointment as per RX. The patient is to call for any change in symptoms, increase in size of the lesion, increase in pain. 04/21/2016 Appointment: Gia Santos WPtel: [facility] [place] [place] (10 min) Simple 04/21/2016 Patient Education: Patient Medication Summary Completed 04/21/2016 Patient Education: Obesity Completed 04/21/2016 Visit Plan: Rash - The patient was instructed in appropriate care. The patient was instructed to use the ointment as per RX. The patient is to call for any change in symptoms, increase in size of the lesion, increase in pain. Michoacano's-seeing rheumatolgist at - check cbc q 4 weeks. Pt is going to be starting on Humira per Dr. German at . Will check TB lab per Dr. German request prior to the initiation of the Humira. 02/27/2016 Appointment: Maddy Gutierres WPtel: [facility] [phone] [place] (15 min) Moderate 02/27/2016 Patient Education: Patient Medication Summary Completed 02/27/2016 Visit Plan: [place]oacano's-seeing rheumatolgist at - check cbc q 4 weeks Chronic Depression and anxiety - the pt has symptoms of chronic anxiety and depression that have not been well controlled since the last office visit. The pt has expected periods of exacerbation with abatement of the symptoms with change in situational exposure. Pt has only been taking her wellbutrin once daily - will increase to BID. Insomnia - Pt has been advised to increase the light in the house during the day, and start dimming the lights during the evening hours. Pt has been advised to cut out caffeine after 5pm. Daytime napping worsens night time insomnia. 02/04/2016 Appointment: Gia Santos WPtel: [facility] [place] [place] (15 min) Moderate 02/04/2016 Patient Education: Patient Medication Summary Completed 02/04/2016 Patient Education: Obesity Completed 02/04/2016 Appointment: Gia Santos WPtel: [facility] (15 min) Moderate 01/03/2016 Visit Plan: [place]oacano's-seeing rheumatolgist at - check cbc q 4 weeks Chronic Depression and anxiety - the pt has symptoms of chronic anxiety and depression that have been fairly well controlled since the last office visit. The pt has expected periods of exacerbation with abatement of the symptoms with change in situational exposure. No change in current medications. 12/04/2015 Appointment: Maddy Gutierres WPtel: [phone] [place] (15 min) Moderate 12/04/2015 Patient Education: Patient Medication Summary Completed 12/04/2015 Patient Education: Obesity Completed 12/04/2015 Visit Plan: [place]acano's-seeing rheumatolgist at - check cbc today and q 4 weeks Depression - uncontrolled - Pt has been counseled about the diagnosis of depression, the potential causes, and risks associated with the diagnosis. The pt denies suicidal ideation, or plans. The patient has been counseled about treatment options, and understands the risks associated with treatment of depression, as well as the risks associated with NOT treating the depression. I believe the pt will benefit from medical intervention and an antidepressant has been appropriately prescribed for this patient. 11/01/2015 Appointment: Gia Santos WPtel: [facility] [place] [place] (15 min) Moderate 11/01/2015 Patient Education: Patient Medication Summary Completed 11/01/2015 Patient Education: Obesity Completed 11/01/2015 Appointment: (30 min) Complex 10/12/2015 Visit Plan: [place]ano's-seeing rheumatolgist at -started on methotrexate-check cbc today and q 4 weeks Depression - uncontrolled - Pt has been counseled about the diagnosis of depression, the potential causes, and risks associated with the diagnosis. The pt denies suicidal ideation, or plans. The patient has been counseled about treatment options, and understands the risks associated with treatment of depression, as well as the risks associated with NOT treating the depression. I believe the pt will benefit from medical intervention and an antidepressant has been appropriately prescribed for this patient. SAMPLES OF DEPLIN Obesity - chronic issue with this patient. The pt has been counseled about diet changes, calorie restriction, and need to exercise. Pt will RTC in one month for weight check. Start Belviq 08/31/2015 Appointment: (15 min) Moderate 08/31/2015 Patient Education: Patient Medication Summary Completed 08/31/2015 Patient Education: Obesity Completed 08/31/2015 Care Plan: BMI Above normal followup SELF-MGMT EDUC & TRAIN 1 PT Ordered 2015 Visit Plan: Myalgia/Arthralgia - recommended pt to start on voltaren gel - waiting on report from hay stacker. 07/27/2015 Patient Education: Patient Medication Summary Completed 07/27/2015 Appointment: Eloina Ingram WPtel: [facility] (15 min) Moderate 07/24/2015 Visit Plan: Multiple joint pwdk-arggcmxm-vjwoohwkh with patient-plan to check labs including inflammatory markers-will proceed as indicated-instructed patient to continue diclofenac as previously prescribed Depression-check labs and follow up in 1 month-sooner if needed Surgical menopause-stop control due to side effects for 1 months-call if symptoms develop and we will start a low dose estrogen 04/19/2015 Patient Education: Patient Medication Summary Completed 04/19/2015 Visit Plan: Patient sent to occupational health for workman 's comp 03/12/2015 Patient Education: Patient Medication Summary Completed 03/12/2015 Appointment: (15 min) Moderate 03/09/2015 Visit Plan: Menopausal symptoms-hysterectomy Mar 2014- weight rbkv-yvucrdn-pqm tmthuda-toaysciaep-zxbbozzap with patient-recommend labs today and then plan to increase estrogen as discussed. Instructed the patient to call if symptoms do not improve or if any worse. Depression- uncontrolled-if labs okay, consider low dose SSRI such as celexa-patient verbalized understanding of plan. 01/15/2015 Visit Plan: Menopausal symptoms-hysterectomy Mar 2014- weight hxmx-vyrsckr-qxm zbjzaog-xntyhqkyui-yvrutbkpr with patient-recommend labs today and then plan to increase estrogen as discussed. Instructed the patient to call if symptoms do not improve or if any worse. Depression- uncontrolled-if labs okay, consider low dose SSRI such as celexa-patient verbalized understanding of plan. 01/15/2015 Patient Education: Patient Medication Summary Completed 01/15/2015 Visit Plan: Cellulitis - continue with oral antibiotics as previously directed, return to clinic as previously directed, call for acute change in symptoms, worsening redness, warmth, discharge. 02/21/2014 Appointment: Eloina Ingram WPtel: [facility] [facility] 02/21/2014 Patient Education: Patient Medication Summary Completed 02/21/2014 Visit Plan: Wound Instructions -inflamed skin tag removed- right axilla- Pt was instruced to keep the wound clean, wash with antibacterial soap, use triple antibiotic ointment, call if redness, pustular drainage, or any other acute conerns. Igrown hair right axilla-no shaving x 10-14 days-RX for bactrim-use warm moist heat-call if does not resolve. 11/15/2013 Appointment: Maddy Gutierres WPtel: [phone] Surgical Procedure 11/15/2013 Patient Education: Patient Medication Summary Completed 11/15/2013 Visit Plan: URI - Pt advised to increase fluids, vitamin C. Discussed natural and expected course of this diagnosis and need to alert me if symtpoms do not follow expected course, or if any worse. RX sent to patient' s pharmacy. Dyshidrotic eczema-RX for traimcinolone cream-call if does not resolve 11/10/2013 Patient Education: Patient Medication Summary Completed 11/10/2013 Visit Plan: URI - Pt advised to increase fluids, vitamin C. Discussed natural and expected course of this diagnosis and need to alert me if symtpoms do not follow expected course, or if any worse. RX sent to patient' s pharmacy. 07/15/2013 Appointment: Maddy Gutierres WPtel: [facility] [id number] New Patient 07/15/2013 Patient Education: Patient Medication Summary Completed 07/15/2013 [id number] [place] Referral Initiated Referral: Dr Montgomery Referral Appointment Requested Instructions Comment . [facility]-seeing rheumatolgist at - check cbc today and q 4 weeks Depression - uncontrolled - Pt has been counseled about the diagnosis of depression, the potential causes, and risks associated with the diagnosis. The pt denies suicidal ideation, or plans. The patient has been counseled about treatment options, and understands the risks associated with treatment of depression, as well as the risks associated with NOT treating the depression. I believe the pt will benefit from medical intervention and an antidepressant has been appropriately prescribed for this patient. . URI - Pt advised to increase fluids, vitamin C. Discussed natural and expected course of this diagnosis and need to alert me if symtpoms do not follow expected course, or if any worse. RX sent to patient's pharmacy. Dyshidrotic eczema-RX for traimcinolone cream-call if does not resolve . Wound Instructions -inflamed skin tag removed-right axilla- Pt was instruced to keep the wound clean, wash with antibacterial soap, use triple antibiotic ointment, call if redness, pustular drainage, or any other acute conerns. Igrown hair right axilla-no shaving x 10-14 days-RX for bactrim-use warm moist heat-call if does not resolve. . Pharyngitis-Discussed natural and expected course of this diagnosis and need to alert me if symptoms do not follow expected course, or if any worse. Recommended salt water gargles as needed for pain. Tylenol/ motrin as needed for fever/discomfort. . URI - Pt advised to increase fluids, vitamin C. Discussed natural and expected course of this diagnosis and need to alert me if symptoms do not follow expected course, or if any worse. RX sent to patient's pharmacy. Allergies - chronic - recommended pt to use allergy medication as prescribed. Pt has been counseled as to the appropriate use of the medication. Pt to call if allergy symptoms are not controlled with the medication. If using nasal spray, instructions as follows: Nasal spray- use twice daily, one spray per nostril twice daily, after 30 minutes, rinse out nose with saline spray.. Use opposite hand per nostril to spray in the nasal steroid allergy spray. . Surgical menopause-symptomatic hot flashes-samples of premarin cream [place]-on humira-appt with hay stacker at in the next couple of weeks Rreyknimcy-nlmmdlth-qqchkzgt wellbutrin to twice daily Iron etglurbbfs-fmkaec-ckphdqde oral iron . Rash - The patient was instructed in appropriate care. The patient was instructed to use the ointment as per RX. The patient is to call for any change in symptoms, increase in size of the lesion, increase in pain. [facility]seeing rheumatolgist at - check cbc q 4 weeks. Pt is going to be starting on Humira per Dr. German at . Will check TB lab per Dr. German request prior to the initiation of the Humira. . Menopausal symptoms-hysterectomy Mar 2014-weight gain- fatigue-hot ougcpaf-jzkkookxxp-lfxjsnqob with patient-recommend labs today and then plan to increase estrogen as discussed. Instructed the patient to call if symptoms do not improve or if any worse. Geldbvxhfx-emavdxsalron-yl labs okay, consider low dose SSRI such as celexa- patient verbalized understanding of plan. . Cellulitis - continue with oral antibiotics as previously directed, return to clinic as previously directed, call for acute change in symptoms, worsening redness, warmth, discharge. . [facility]seeing rheumatolgist at - check cbc q 4 weeks Chronic Depression and anxiety - the pt has symptoms of chronic anxiety and depression that have not been well controlled since the last office visit. The pt has expected periods of exacerbation with abatement of the symptoms with change in situational exposure. Pt has only been taking her wellbutrin once daily - will increase to BID. Insomnia - Pt has been advised to increase the light in the house during the day , and start dimming the lights during the evening hours. Pt has been advised to cut out caffeine after 5pm. Daytime napping worsens night time insomnia. . Myalgia/Arthralgia - recommended pt to start on voltaren gel - waiting on report from hay stacker. . URI - Pt advised to increase fluids, vitamin C. Discussed natural and expected course of this diagnosis and need to alert me if symtpoms do not follow expected course, or if any worse. RX sent to patient's pharmacy. . [facility]-seeing rheumatolgist at - check cbc q 4 weeks Chronic Depression and anxiety - the pt has symptoms of chronic anxiety and depression that have been fairly well controlled since the last office visit. The pt has expected periods of exacerbation with abatement of the symptoms with change in situational exposure. No change in current medications. . [facility]-seeing rheumatolgist at -started on methotrexate-check cbc today and q 4 weeks Depression - uncontrolled - Pt has been counseled about the diagnosis of depression, the potential causes, and risks associated with the diagnosis. The pt denies suicidal ideation, or plans. The patient has been counseled about treatment options, and understands the risks associated with treatment of depression, as well as the risks associated with NOT treating the depression. I believe the pt will benefit from medical intervention and an antidepressant has been appropriately prescribed for this patient. [facility] Obesity - chronic issue with this patient. The pt has been counseled about diet changes, calorie restriction, and need to exercise. Pt will RTC in one month for weight check. Start Belviq . Patient sent to occupational health for workman's comp . Pharyngitis-Discussed natural and expected course of this diagnosis and need to alert me if symptoms do not follow expected course, or if any worse. Recommended salt water gargles as needed for pain. Tylenol/ motrin as needed for fever/discomfort. . Menopausal symptoms-hysterectomy Mar 2014-weight gain- fatigue-hot dbakuot-vpibphanse-tvgcwylsm with patient-recommend labs today and then plan to increase estrogen as discussed. Instructed the patient to call if symptoms do not improve or if any worse. Rbpqdpborj-oppppqdvvynx-ou labs okay, consider low dose SSRI such as celexa- patient verbalized understanding of plan. STOP CONTROL CHECK LABS CONTINUE DICLOFENAC . Multiple joint fwgh-frimqali-vzufcaddk with patient-plan to check labs including inflammatory markers-will proceed as indicated-instructed patient to continue diclofenac as previously prescribed Depression-check labs and follow up in 1 month-sooner if needed Surgical menopause-stop control due to side effects for 1 months-call if symptoms develop and we will start a low dose estrogen . Sarina - recommended pt to continue with Humira - monitor symptoms. Iron deficiency - check cbc today. Fatigue - check thyroid function. Obesity - start phentermine 1 tab AM and 1/2 tab noon. . Rash - The patient was instructed in appropriate care. The patient was instructed to use the ointment as per RX. The patient is to call for any change in symptoms, increase in size of the lesion, increase in pain. Referral to Dr Montgomery consider HCTZ for swelling -check labs first . Inflammatory arthritis-check labs -refer to Dr Montgomery-continue methotrexate Dyshidrotic eczema-rx for betamethasone provided and instructed on use Swelling-check labs-consider prn dose of hctz-will call patient with labs results
--- OUTSIDE RECORDS SUMMARY | 2018-06-16 23:32 | XMS REPORT | CCD ---
Author Author [facility] Address [address] [place] [address] Phone Care Team Providers Care Brazer Induction Name Role Phone PP Unavailable CCM Unavailable Summary Purpose Interface Exchange Insurance Providers Payer name Policy type / Coverage type Covered constitution party ID Effective Begin Date Effective End Date [employer] (2012 THRU) Mian [id number] Unknown Unknown Family history Sister Diagnosis Age [...] status Unknown 07/15/[address]: 310572373 Never smoker 07/15/2013 Alcohol history Unknown occasionally [...] Fill Instructions hydrochlorothiazide 25 mg tablet RxNorm: 262626 1 Tablet(s) PO QDAY PRN 10/30/2017 No Stop Date Active betamethasone dipropionate 0.05 % topical cream RxNorm: 116466 1 Application TOP BID 10/23/2017 11/01/2017 Inactive methotrexate sodium 2.5 mg tablet RxNorm: 602597 6 Tablet(s) PO QW TAKE 6 TABLETS EVERY WEEK ON Thursday07/06/20172018 Active folic acid 1 mg tablet RxNorm: 806053 1 Tablet(s) PO daily 06/30/2018 Active Sprintec (28) 0.25 mg-35 mcg tablet RxNorm: 305660 1 Tablet(s) PO daily 06/17/2017 10/14/2017 Inactive phentermine 37.5 mg tablet RxNorm: 544520 Tablet(s) 1 tab AM and 1/2 tab noon PO 05/14/2017 No Stop Date Active Keflex 500 mg capsule RxNorm: 799205 1 Capsule(s) PO TID 201605/13/2017 Inactive Keflex 500 mg capsule RxNorm: 920879 1 Capsule(s) PO TID 201605/05/2017 Inactive Zithromax Z-Shai 250 mg tablet RxNorm: 192823 1 Tablet(s) PO UD 04/08/2017 05/13/2017 Inactive methotrexate sodium 2.5 mg tablet RxNorm: 859668 TAKE 6 TABLETS EVERY WEEK ON Thursday11/03/2016 05/13/2017 Inactive amoxicillin 500 mg tablet RxNorm: 018495 1 Tablet(s) PO BID 09/03/2016 Inactive Wellbutrin SR 150 mg tablet,sustained-release RxNorm: 530464 1 Tablet(s) PO BID TAKE ONE TABLET BY MOUTH TWICE DAILY 07/07/2016 05/13/2017 Inactive ferrous sulfate 325 mg (65 mg iron) tablet RxNorm: 358000 1 Tablet(s) PO daily TAKE ONE TABLET BY MOUTH ONCE DAILY 07/07/2016 05/13/2017 Inactive methotrexate sodium 2.5 mg tablet RxNorm: 316164 6 Tablet(s) PO QW on Thursday07/07/2016 11/02/2016 Inactive Wellbutrin SR 150 mg tablet,sustained-release RxNorm: 791341 TAKE ONE TABLET BY MOUTH TWICE DAILY 06/10/2016 07/06/2016 Inactive ferrous sulfate 325 mg (65 mg iron) tablet RxNorm: 231624 TAKE ONE TABLET BY MOUTH ONCE DAILY 06/06/2016 07/06/2016 Inactive betamethasone valerate 0.1 % topical cream RxNorm: 987639 1 Application TOP BID 04/21/2016 05/13/2017 Inactive ketoconazole 2 % topical cream RxNorm: 280023 1 Application TOP BID 04/21/2016 05/13/2017 Inactive Wellbutrin SR 150 mg tablet,sustained-release RxNorm: 150052 TAKE ONE TABLET BY MOUTH TWICE DAILY 03/11/2016 04/09/2016 Inactive betamethasone valerate 0.1 % topical cream RxNorm: 083923 1 Application TOP BID 02/27/2016 04/20/2016 Inactive Premarin 0.625 mg tablet RxNorm: 069631 1 Tablet(s) PO daily 02/03/2016 Inactive ferrous sulfate 325 mg (65 mg iron) tablet RxNorm: 659782 1 Tablet(s) PO daily 12/31/2015 04/28/2016 Inactive folic acid 1 mg tablet RxNorm: 584471 1 Tablet(s) PO daily 05/13/2017 Inactive Wellbutrin SR 150 mg tablet,sustained-release RxNorm: 628808 1 Tablet(s) PO BID 12/31/2015 01/29/2016 Inactive triamcinolone acetonide 0.025 % topical cream RxNorm: 4066088 1 Application TOP BID 12/04/2015 05/13/2017 Inactive Topamax 25 mg tablet RxNorm: 438917 1 Tablet(s) PO QHS x 7 days, then notify clinic with how symptoms are 11/05/2015 Inactive Wellbutrin SR 150 mg tablet,sustained-release RxNorm: 893378 1 Tablet(s) PO BID 11/01/2015 11/29/2015 Inactive Topamax 25 mg tablet RxNorm: 233741 1 Tablet(s) PO QHS x 7 days, then notify clinic with how symptoms are 09/26/2015 Inactive ferrous sulfate 325 mg (65 mg iron) tablet RxNorm: 597070 1 Tablet(s) PO daily 09/26/2015 12/30/2015 Inactive Topamax 25 mg tablet RxNorm: 056636 1 Tablet(s) PO daily 201509/25/2015 Inactive Belviq 10 mg tablet RxNorm: 4655063 1 Tablet(s) PO BID 201512/03/2015 Inactive Deplin (algal oil) 15 mg-90.314 mg capsule RxNorm: 1 Capsule(s) PO daily 08/31/2015 12/30/2015 Inactive Wellbutrin 75 mg tablet RxNorm: 775195 1 Tablet(s) PO BID 08/3008/30/2015 Inactive Wellbutrin 75 mg tablet RxNorm: 683444 1 Tablet(s) PO BID 08/3010/31/2015 Inactive methotrexate sodium 2.5 mg tablet RxNorm: 951974 6 Tablet(s) PO QW on Thursday08/22/2015 07/06/2016 Inactive folic acid 1 mg tablet RxNorm: 332610 1 Tablet(s) PO daily 02/201608/30/2015 Inactive ferrous sulfate 325 mg (65 mg iron) tablet RxNorm: 211990 1 Tablet(s) PO daily 08/22/2015 09/25/2015 Inactive folic acid 1 mg tablet RxNorm: 258918 1 Tablet(s) PO daily 02/201608/21/2015 Inactive prednisone 5 mg tablet RxNorm: 220676 1 Tablet(s) PO daily 02/201602/03/2016 Inactive Voltaren 1 % topical gel RxNorm: 348548 2 Gram(s) TOP QID to hands, elbows, knees 07/27/2015 08/25/2015 Inactive ferrous sulfate 325 mg (65 mg iron) tablet RxNorm: 159607 1 Tablet(s) PO daily 07/23/2015 08/21/2015 Inactive ferrous sulfate 325 mg (65 mg iron) tablet RxNorm: 584694 1 Tablet(s) PO daily 05/25/2015 07/22/2015 Inactive prednisone 10 mg tablet RxNorm: 227417 1 Tablet(s) PO UD 201406/07/2015 Inactive 10mg PO daily for 2 weeks, then 5mg PO daily for 2 weeks prednisone 10 mg tablet RxNorm: 008371 1 Tablet(s) PO UD 201405/10/2015 Inactive 10mg PO daily for 2 weeks, then 5mg PO daily for 2 weeks prednisone 20 mg tablet RxNorm: 044278 1 Tablet(s) PO UD 201405/11/2015 Inactive prednisone 20mg daily x 2 days and then 1/2 tab daily x 2 days and then 1/2 QOD x 2 days then stop ferrous sulfate 325 mg (65 mg iron) tablet RxNorm: 388956 1 Tablet(s) PO daily 04/23/2015 04/22/2015 Inactive prednisone 20 mg tablet RxNorm: 871108 1 Tablet(s) PO UD 201404/22/2015 Inactive 3 tab daily x 3 days, 2 tab daily x 3 day, 1 tab daily x 3 days, 1/2 tab daily x 3 days, 1/2 tab every other day x 3 doses then stop ferrous sulfate 325 mg (65 mg iron) tablet RxNorm: 128442 1 Tablet(s) PO daily 04/23/2015 05/24/2015 Inactive prednisone 20 mg tablet RxNorm: 276763 1 Tablet(s) PO UD 201404/26/2015 Inactive 3 tab daily x 3 days, 2 tab daily x 3 day, 1 tab daily x 3 days, 1/2 tab daily x 3 days, 1/2 tab every other day x 3 doses then stop Wellbutrin 75 mg tablet RxNorm: 126575 1 Tablet(s) PO BID 02/0804/18/2015 Inactive Wellbutrin 75 mg tablet RxNorm: 116534 1 Tablet(s) PO BID 02/0802/07/2015 Inactive mupirocin 2 % topical ointment RxNorm: 017089 1 Application TOP TID apply to rash on face 02/21/2014 03/02/2014 Inactive [SAVINGS FOR UNINSURED PATIENTS -- BIN: [id number], PCN: [id number], Group: [id number], ID# [id number], Process claim through [employer] , for questions: . THIS IS NOT INSURANCE.] sulfamethoxazole 800 mg-trimethoprim 160 mg tablet RxNorm: 669983 1 Tablet(s) PO BID 02/21/2014 03/02/2014 Inactive [SAVINGS FOR UNINSURED PATIENTS -- BIN:417276, PCN: ASPROD1, Group: [id number], ID# [id number], Process claim through [employer], for questions: . THIS IS NOT INSURANCE.] Bactrim DS 800 mg-160 mg tablet RxNorm: 380129 1 Tablet(s) PO BID 11/15/2013 11/21/2013 Inactive triamcinolone acetonide 0.1 % topical cream RxNorm: 7898679 1 Application TOP BID 11/10/2013 11/19/2013 Inactive amoxicillin 500 mg tablet RxNorm: 512331 1 Tablet(s) PO TID 07/14/2013 Inactive amoxicillin 500 mg tablet RxNorm: 739556 1 Tablet(s) PO TID 07/24/2013 Inactive hydrochlorothiazide 25 mg tablet RxNorm: 155123 1 Tablet(s) PO QDAY PRN No Start Date 10/29/2017 Inactive diclofenac sodium 75 mg tablet,delayed release RxNorm: 144093 1 Tablet(s) PO BID No Start Date 07/26/2015 Inactive Zithromax Z-Shai 250 mg tablet RxNorm: 037162 Tablet(s) PO No Start Date 09/25/2015 Inactive phentermine 37.5 mg capsule RxNorm: 570560 1 Capsule(s) PO daily No Start Date 05/13/2017 Inactive Premarin 0.625 mg tablet RxNorm: 368615 1 Tablet(s) PO daily No Start Date 01/07/2016 Inactive Wellbutrin SR 150 mg tablet,sustained-release RxNorm: 620318 1 Tablet(s) PO BID No Start Date 12/30/2015 Inactive Sprintec (28) 0.25 mg-35 mcg tablet RxNorm: 034932 1 Tablet(s) PO daily No Start Date 04/18/2015 Inactive methotrexate sodium 2.5 mg tablet RxNorm: 636400 6 Tablet(s) PO QW on Thursday No [...] 28.8 pg 01/29/2018 Cbc With Differential Ord2 Robertson% 6.0 % 01/29/2018 Cbc With Differential Ord2 [...] 1.67 K/ul 01/29/2018 Cbc With Differential Ord2 Robertson ABS# 0.4 K/ul 01/29/2018 Cbc With Differential Ord2 Eos ABS# 0.2 K/ul 01/29/2018 Cbc With Differential Ord2 Baso ABS# 0.0 K/ul 01/29/2018 Tsh Ord6 TSH (3rd IS) 1.88 uIU/mL 01/29/2018 Comp Metabolic Uny839 NA 141 mEq/L 01/29/2018 Comp Metabolic Ndg074 K 4.2 mEq/L 01/29/2018 Comp Metabolic Uwh104 CL 105 mEq/L 01/29/2018 Comp Metabolic Eap068 CO2 30.0 mEq/L 01/29/2018 Comp Metabolic Plo531 ANION GAP 10 01/29/2018 Comp Metabolic Opw777 GLUCOSE 97 mg/dL 01/29/2018 Comp Metabolic Riw480 Creat 0.6 mg/dL 01/29/2018 Comp Metabolic Sqb561 eGFR 128 ml/min/1.73m2 01/29/2018 Comp Metabolic Tzx289 BUN 13 mg/dL 01/29/2018 Comp Metabolic Tei833 B/C Ratio 22.0 Ratio 01/29/2018 Comp Metabolic Nsj955 CALCIUM 9.5 mg/dL 01/29/2018 Comp Metabolic Cxt925 ALK PHOS 61 U/L 01/29/2018 Comp Metabolic Glx854 AST(SGOT) 14 U/L 01/29/2018 Comp Metabolic Dbp855 ALT(SGPT) 13 U/L 01/29/2018 Comp Metabolic Bpx397 BILI T 0.5 mg/dL 01/29/2018 Comp Metabolic Qsf484 ALBUMIN 4.3 g/dL 01/29/2018 Comp Metabolic Nhj454 TPRO 6.8 g/dL 01/29/2018 Comp Metabolic Wis466 GLOB 2.5 g/dL 01/29/2018 Comp Metabolic Jmm802 A/G Ratio 1.8 Ratio 01/29/2018 Comp Metabolic Icn629 Osmo 281 mOsmo 01/29/2018 C-Reactive Protein Qnt [...] 18.3 % 10/23/2017 Cbc With Differential Ord2 Robertson% 4.9 % 10/23/2017 Cbc With Differential Ord2 [...] 1.74 K/ul 10/23/2017 Cbc With Differential Ord2 Robertson ABS# 0.5 K/ul 10/23/2017 Cbc With Differential Ord2 Eos ABS# 0.1 K/ul 10/23/2017 Cbc With Differential Ord2 Baso ABS# 0.0 K/ul 10/23/2017 C-Reactive Protein Qnt Crqnt CRP 1.2 mg/dl 10/23/2017 Sed Rate Ord21 ESR 15 mm/hr 10/23/2017 Comp Metabolic Lkz833 NA 137 mEq/L 10/23/2017 Comp Metabolic Qui183 K 3.8 mEq/L 10/23/2017 Comp Metabolic Aqh590 CL 102 mEq/L 10/23/2017 Comp Metabolic Maf995 CO2 25.0 mEq/L 10/23/2017 Comp Metabolic Rln340 ANION GAP 14 10/23/2017 Comp Metabolic Pes624 GLUCOSE 116 mg/dL 10/23/2017 Comp Metabolic Eva380 Creat 0.8 mg/dL 10/23/2017 Comp Metabolic Czq611 eGFR 88 ml/min/1.73m2 10/23/2017 Comp Metabolic Eom392 BUN 11 mg/dL 10/23/2017 Comp Metabolic Fjx594 B/C Ratio 13.4 Ratio 10/23/2017 Comp Metabolic Ecv499 CALCIUM 9.1 mg/dL 10/23/2017 Comp Metabolic Pbf361 ALK PHOS 63 U/L 10/23/2017 Comp Metabolic Shf499 AST(SGOT) 12 U/L 10/23/2017 Comp Metabolic Ozu171 ALT(SGPT) 10 U/L 10/23/2017 Comp Metabolic Lum432 BILI T 0.4 mg/dL 10/23/2017 Comp Metabolic Lfk709 ALBUMIN 4.1 g/dL 10/23/2017 Comp Metabolic Bcr627 TPRO 6.9 g/dL 10/23/2017 Comp Metabolic Dbj118 GLOB 2.8 g/dL 10/23/2017 Comp Metabolic Lmp448 A/G Ratio 1.5 Ratio 10/23/2017 Comp Metabolic Eel159 Osmo 274 mOsmo 10/23/2017 Comp Metabolic Ihh490 NA 138 mEq/L 05/14/2017 Comp Metabolic Flc867 K 3.6 mEq/L 05/14/2017 Comp Metabolic Lwj826 CL 103 mEq/L 05/14/2017 Comp Metabolic Wsb301 CO2 30.0 mEq/L 05/14/2017 Comp Metabolic Dmu798 ANION GAP 9 05/14/2017 Comp Metabolic Sri139 GLUCOSE 113 mg/dL 05/14/2017 Comp Metabolic Lsy773 Creat 0.6 mg/dL 05/14/2017 Comp Metabolic Tvw730 eGFR 124 ml/min/1.73m2 05/14/2017 Comp Metabolic Tjy301 BUN 12 mg/dL 05/14/2017 Comp Metabolic Yzx585 B/C Ratio 19.7 Ratio 05/14/2017 Comp Metabolic Ueg353 CALCIUM 9.1 mg/dL 05/14/2017 Comp Metabolic Htl452 ALK PHOS 61 U/L 05/14/2017 Comp Metabolic Wiw634 AST(SGOT) 14 U/L 05/14/2017 Comp Metabolic Wsr017 ALT(SGPT) 11 U/L 05/14/2017 Comp Metabolic Tyg179 BILI T 0.4 mg/dL 05/14/2017 Comp Metabolic Goz658 ALBUMIN 4.0 g/dL 05/14/2017 Comp Metabolic Kzt849 TPRO 6.6 g/dL 05/14/2017 Comp Metabolic Swr315 GLOB 2.6 g/dL 05/14/2017 Comp Metabolic Adz878 A/G Ratio 1.5 Ratio 05/14/2017 Comp Metabolic Puk703 Osmo 276 mOsmo 05/14/2017 Free T4 Qww459 FREE T4 0.76 ng/dL 05/14/2017 Tsh Ord6 [...] 85.8 fl 05/14/2017 Cbc With Differential Ord2 Robertson% 5.4 % 05/14/2017 Cbc With Differential Ord2 [...] 2.75 K/ul 05/14/2017 Cbc With Differential Ord2 Robertson ABS# 0.5 K/ul 05/14/2017 Cbc With Differential Ord2 Eos ABS# 0.2 K/ul 05/14/2017 Cbc With Differential Ord2 Baso ABS# 0.0 K/ul 05/14/2017 C RAP A SC [id number] Strep A Positive 08/25/2016 Cbc With Differential [...] 17.6 % 08/25/2016 Cbc With Differential Ord2 Robertson% 7.6 % 08/25/2016 Cbc With Differential Ord2 [...] 1.64 K/ul 08/25/2016 Cbc With Differential Ord2 Robertson ABS# 0.7 K/ul 08/25/2016 Cbc With Differential [...] 30.3 % 07/04/2016 Cbc With Differential Ord2 Robertson% 7.7 % 07/04/2016 Cbc With Differential Ord2 [...] 2.49 K/ul 07/04/2016 Cbc With Differential Ord2 Robertson ABS# 0.6 K/ul 07/04/2016 Cbc With Differential [...] 88.4 fl 02/28/2016 Cbc With Differential Ord2 Robertson% 4.2 % 02/28/2016 Cbc With Differential Ord2 [...] 2.01 K/ul 02/28/2016 Cbc With Differential Ord2 Robertson ABS# 0.3 K/ul 02/28/2016 Cbc With Differential Ord2 Eos ABS# 0.3 K/ul 02/28/2016 Cbc With Differential Ord2 Baso ABS# 0.0 K/ul 02/28/2016 Comp Metabolic Izy061 NA 138 mEq/L 02/28/2016 Comp Metabolic Kzj365 K 3.8 mEq/L 02/28/2016 Comp Metabolic Lqj916 CL 103 mEq/L 02/28/2016 Comp Metabolic Xlz588 CO2 31.0 mEq/L 02/28/2016 Comp Metabolic Sbr073 ANION GAP 8 02/28/2016 Comp Metabolic Pyb278 GLUCOSE 83 mg/dL 02/28/2016 Comp Metabolic Tlc794 Creat 0.7 mg/dL 02/28/2016 Comp Metabolic Yej172 eGFR 106 ml/min/1.73m2 02/28/2016 Comp Metabolic Lne727 BUN 12 mg/dL 02/28/2016 Comp Metabolic Kwi271 B/C Ratio 17.1 Ratio 02/28/2016 Comp Metabolic Mqu883 CALCIUM 9.7 mg/dL 02/28/2016 Comp Metabolic Nzk430 ALK PHOS 92 U/L 02/28/2016 Comp Metabolic Ylw953 AST(SGOT) 14 U/L 02/28/2016 Comp Metabolic Hrf722 ALT(SGPT) 11 U/L 02/28/2016 Comp Metabolic Tpe145 BILI T 0.5 mg/dL 02/28/2016 Comp Metabolic Sxh667 ALBUMIN 4.6 g/dL 02/28/2016 Comp Metabolic Vts457 TPRO 7.1 g/dL 02/28/2016 Comp Metabolic Yyx523 GLOB 2.5 g/dL 02/28/2016 Comp Metabolic Wzq701 A/G Ratio 1.9 Ratio 02/28/2016 Comp Metabolic Jvj032 Osmo 275 mOsmo 02/28/2016 Cbc With Differential [...] 85.1 fl 01/07/2016 Cbc With Differential Ord2 Robertson% 6.2 % 01/07/2016 Cbc With Differential Ord2 [...] 1.96 K/ul 01/07/2016 Cbc With Differential Ord2 Robertson ABS# 0.5 K/ul 01/07/2016 Cbc With Differential Ord2 Eos ABS# 0.2 K/ul 01/07/2016 Cbc With Differential Ord2 Baso ABS# 0.0 K/ul 01/07/2016 Comp Metabolic Fkt308 NA 138 mEq/L 12/04/2015 Comp Metabolic Nod917 K 4.0 mEq/L 12/04/2015 Comp Metabolic Ozi462 CL 104 mEq/L 12/04/2015 Comp Metabolic Syb689 CO2 28.0 mEq/L 12/04/2015 Comp Metabolic Npv788 ANION GAP 10 12/04/2015 Comp Metabolic Ftd595 GLUCOSE 84 mg/dL 12/04/2015 Comp Metabolic Lop836 Creat 0.8 mg/dL 12/04/2015 Comp Metabolic Etr128 eGFR 89 ml/min/1.73m2 12/04/2015 Comp Metabolic Ren292 BUN 13 mg/dL 12/04/2015 Comp Metabolic Wcg498 B/C Ratio 15.9 Ratio 12/04/2015 Comp Metabolic Bkq259 CALCIUM 9.7 mg/dL 12/04/2015 Comp Metabolic Bas304 ALK PHOS 109 U/L 12/04/2015 Comp Metabolic Hny202 AST(SGOT) 15 U/L 12/04/2015 Comp Metabolic Upo555 ALT(SGPT) 11 U/L 12/04/2015 Comp Metabolic Jqf506 BILI T 0.4 mg/dL 12/04/2015 Comp Metabolic Vbh155 ALBUMIN 4.7 g/dL 12/04/2015 Comp Metabolic Wkw341 TPRO 7.5 g/dL 12/04/2015 Comp Metabolic Ctn426 GLOB 2.9 g/dL 12/04/2015 Comp Metabolic Fve582 A/G Ratio 1.6 Ratio 12/04/2015 Comp Metabolic Mlz809 Osmo 275 mOsmo 12/04/2015 Cbc With Differential [...] 20.7 % 12/04/2015 Cbc With Differential Ord2 Robertson% 5.5 % 12/04/2015 Cbc With Differential Ord2 [...] 1.55 K/ul 12/04/2015 Cbc With Differential Ord2 Robertson ABS# 0.4 K/ul 12/04/2015 Cbc With Differential [...] 26.4 pg 11/01/2015 Cbc With Differential Ord2 Robertson% 5.4 % 11/01/2015 Cbc With Differential Ord2 [...] 1.84 K/ul 11/01/2015 Cbc With Differential Ord2 Robertson ABS# 0.5 K/ul 11/01/2015 Cbc With Differential [...] 82.3 fl 08/31/2015 Cbc With Differential Ord2 Robertson% 7.4 % 08/31/2015 Cbc With Differential Ord2 [...] 1.68 K/ul 08/31/2015 Cbc With Differential Ord2 Robertson ABS# 0.6 K/ul 08/31/2015 Cbc With Differential Ord2 Eos ABS# 0.2 K/ul 08/31/2015 Cbc With Differential Ord2 Baso ABS# 0.0 K/ul 08/31/2015 Cbc With Differential Ord2 New Analyzer Notice Please note new ref ranges starting 06-27-2015 due to implemntation of new five part differential hematolgy analyzer. 08/31/2015 Comp Metabolic Job811 NA 135 mEq/L 08/31/2015 Comp Metabolic Vyd571 K 4.3 mEq/L 08/31/2015 Comp Metabolic Wfa833 CL 99 mEq/L 08/31/2015 Comp Metabolic Jdj793 CO2 26.0 mEq/L 08/31/2015 Comp Metabolic Hgb110 ANION GAP 14 08/31/2015 Comp Metabolic Bse619 GLUCOSE 70 mg/dL 08/31/2015 Comp Metabolic Gah245 Creat 0.7 mg/dL 08/31/2015 Comp Metabolic Zfa363 eGFR 116 ml/min/1.73m2 08/31/2015 Comp Metabolic Lzr484 BUN 17 mg/dL 08/31/2015 Comp Metabolic Olb718 B/C Ratio 26.2 Ratio 08/31/2015 Comp Metabolic Jyk291 CALCIUM 9.6 mg/dL 08/31/2015 Comp Metabolic Dsc015 ALK PHOS 90 U/L 08/31/2015 Comp Metabolic Gzn567 AST(SGOT) 17 U/L 08/31/2015 Comp Metabolic Xpi597 ALT(SGPT) 23 U/L 08/31/2015 Comp Metabolic Etz925 BILI T 0.4 mg/dL 08/31/2015 Comp Metabolic Omm382 ALBUMIN 4.2 g/dL 08/31/2015 Comp Metabolic Yxx402 TPRO 7.3 g/dL 08/31/2015 Comp Metabolic Jok592 GLOB 3.1 g/dL 08/31/2015 Comp Metabolic Kim525 A/G Ratio 1.4 Ratio 08/31/2015 Comp Metabolic Eyc297 Osmo 270 mOsmo 08/31/2015 Clint Spotted Fever Igg/Igm 294689 KARISSA MT SPOTTED FEVER IGM EIA . 05/13/2015 Clint Spotted Fever Igg/Igm [id number] RMSF, IGM 0.32 index 05/13/2015 Clint Spotted Fever Igg/Igm 228499 KARISSA MT SPOTTED FEVER IGG EIA FLEX . 05/13/2015 Clint Spotted Fever Igg/Igm 501149 RMSF, IGG SCREEN-FLEX Negative 05/13/2015 Antineutrophil Cytoplasmic Ab [id number] ANTI -PR3 (C-ANCA) 4.0-5.9 EU/mL 05/09/2015 Antineutrophil Cytoplasmic Ab [id number] ANTI -MPO (P-ANCA) >5.9 EU/mL 05/09/2015 Antineutrophil Cytoplasmic Ab [id number] 05/09/2015 Ehrlichia Chaffeensis Antibody Igm [id number] EHRLICHIA CHAFFEENSIS IGM < 1:16 05/09/2015 Lymes Disease Total Antibodies With Western Blot Reflex [id number] B. BURGDORFERI, IGG/IGM 0.12 LI 05/09/2015 Lymes Disease Total Antibodies With Western Blot Reflex [id number] 05/09/2015 Ehrlichia Chaffeensis Antibody Igg [id number] EHRLICHIA CHAFFEENSIS IGG <1:64 05/09/2015 Sjogren'S Ab Anti-Ss-A/-Ss-B [id number] SSA ( Ro) ANTIBODY,IGG 1.3 EU/mL 04/30/2015 Sjogren'S Ab Anti-Ss-A/-Ss-B [id number] SSB ( La) ANTIBODY,IGG 1.9 EU/mL 04/30/2015 Fatuma [id number] FATUMA (WILMER) SCREEN NONE DETECTED 04/30/2015 Anti-Dsdna Antibodies [id number] dsDNA ANTIBODY,IGG <0.1 IU/mL 04/30/2015 Anti-Dsdna Antibodies [id number] 04/30/2015 Anti-Dsdna Antibodies [id number] dsDNA ANTIBODY,IGG TEST NOT PERFORMED IU/mL 04/26/2015 Antineutrophil Cytoplasmic Ab [id number] ANTI -PR3 (C-ANCA) TEST NOT PERFORMED EU/mL 04/26/2015 Antineutrophil Cytoplasmic Ab [id number] ANTI -MPO (P-ANCA) TEST NOT PERFORMED EU/mL 04/26/2015 Sjogren'S Ab Anti-Ss-A/-Ss-B [id number] SSA ( Ro) ANTIBODY,IGG TEST NOT PERFORMED EU/ mL 04/26/2015 Sjogren'S Ab Anti-Ss-A/-Ss-B [id number] SSB ( La) ANTIBODY,IGG TEST NOT PERFORMED EU/ mL 04/26/2015 Fatuma [id number] FATUMA (WILMER) SCREEN TEST NOT PERFORMED 04/26/2015 Actin (Smooth Muscle) Antibody [id number] F- ACTIN ANTIBODY, IGG 8 Units 04/24/2015 Tibc Ord40 Iron 24 ug/dl 04/20/2015 Tibc Ord40 UIBC 225 ug/dL 04/20/2015 Tibc Ord40 TIBC 249 ug/dL 04/20/2015 Tibc Ord40 Fe-%Sat 9.6 % 04/20/2015 Ferritin Ord22 FERRITIN 67.6 ng/mL 04/20/2015 Sed Rate Ord21 ESR 68 mm/hr 04/19/2015 Uric Acid Ord77 Uric A 3.9 mg/dL 04/19/2015 Ra Factor Zql323 RA FACTOR <10 IU/ml 04/19/2015 C-Reactive Protein Qnt Crqnt CRP 8.7 mg/dl 04/19/2015 Tsh Ord6 hTSH II 1.89 uIU/mL 04/19/2015 Comp Metabolic Kve844 NA 138 mEq/L 04/19/2015 Comp Metabolic Jqq113 K 4.1 mEq/L 04/19/2015 Comp Metabolic Psl049 CL 102 mEq/L 04/19/2015 Comp Metabolic Uvf262 CO2 28.0 mEq/L 04/19/2015 Comp Metabolic Lbv781 ANION GAP 12 04/19/2015 Comp Metabolic Aju899 GLUCOSE 79 mg/dL 04/19/2015 Comp Metabolic Xdu078 Creat 0.6 mg/dL 04/19/2015 Comp Metabolic Fsc483 eGFR 123 ml/min/1.73m2 04/19/2015 Comp Metabolic Akd743 BUN 18 mg/dL 04/19/2015 Comp Metabolic Dxh714 B/C Ratio 29.0 Ratio 04/19/2015 Comp Metabolic Jxo141 CALCIUM 9.2 mg/dL 04/19/2015 Comp Metabolic Ibn538 ALK PHOS 84 U/L 04/19/2015 Comp Metabolic Nmh100 AST(SGOT) 27 U/L 04/19/2015 Comp Metabolic Dmq262 ALT(SGPT) 35 U/L 04/19/2015 Comp Metabolic Jlk879 BILI T 0.3 mg/dL 04/19/2015 Comp Metabolic Alx582 ALBUMIN 3.8 g/dL 04/19/2015 Comp Metabolic Ykw743 TPRO 6.5 g/dL 04/19/2015 Comp Metabolic Ouv529 GLOB 2.8 g/dL 04/19/2015 Comp Metabolic Fbi290 A/G Ratio 1.4 Ratio 04/19/2015 Comp Metabolic Mvv784 Osmo 276 mOsmo 04/19/2015 Cbc With Differential [...] hTSH II 3.05 uIU/mL 01/15/2015 Comp Metabolic Zid030 NA 137 mEq/L 01/15/2015 Comp Metabolic Ars619 K 4.3 mEq/L 01/15/2015 Comp Metabolic Nxu526 CL 99 mEq/L 01/15/2015 Comp Metabolic Lvf663 CO2 28.0 mEq/L 01/15/2015 Comp Metabolic Mmk931 ANION GAP 14 01/15/2015 Comp Metabolic Hxd066 GLUCOSE 76 mg/dL 01/15/2015 Comp Metabolic Izr910 Creat 0.7 mg/dL 01/15/2015 Comp Metabolic Mbr641 eGFR 107 ml/min/1.73m2 01/15/2015 Comp Metabolic Zxw338 BUN 12 mg/dL 01/15/2015 Comp Metabolic Enj175 B/C Ratio 17.1 Ratio 01/15/2015 Comp Metabolic Qwi591 CALCIUM 9.4 mg/dL 01/15/2015 Comp Metabolic Pki736 ALK PHOS 51 U/L 01/15/2015 Comp Metabolic Ico020 AST(SGOT) 14 U/L 01/15/2015 Comp Metabolic Vxr690 ALT(SGPT) 12 U/L 01/15/2015 Comp Metabolic Wdi870 BILI T 0.3 mg/dL 01/15/2015 Comp Metabolic Ljh129 ALBUMIN 4.2 g/dL 01/15/2015 Comp Metabolic Xvf290 TPRO 6.8 g/dL 01/15/2015 Comp Metabolic Xqf414 GLOB 2.6 g/dL 01/15/2015 Comp Metabolic Lsr052 A/G Ratio 1.6 Ratio 01/15/2015 Comp Metabolic Afv616 Osmo 272 mOsmo 01/15/2015 Cbc With Differential [...] Date REMOVAL OF SKIN TAGS <W/15 CPT-4: 43526 11/15/2013 Vital Signs Date Vital 10/23/2017 Blood Pressure 1: 124/78 Code : 8480-6 BMI: 29.5 Code : 11775-6 Heart Rate 1 : 91 bpm Height: 5'6" SpO2: 98% Weight: 183 lbs 07/06/2017 Blood Pressure 1: 122/82 Code : 8480-6 Heart Rate 1: 99 bpm SpO2: 98% 05/14/2017 Blood Pressure 1: 124/78 Code : 8480-6 BMI: 31.2 Code : 17064-7 Heart Rate 1 : 91 bpm Height: 5'6" SpO2: 97% Weight: 193 lbs 04/08/2017 Blood Pressure 1: 122/72 Code : 8480-6 BMI: 30.3 Code : 73938-8 Heart Rate 1 : 86 bpm Height: 5'6" SpO2: 96% Weight: 188 lbs 08/25/2016 Blood Pressure 1: 110/80 Code : 8480-6 Heart Rate 1: 83 bpm Height: SpO2: 98% Temperature: 36.7 (C) / 98.0 (F) Weight: 07/07/2016 Blood Pressure 1: 122/64 Code : 8480-6 BMI: 28.7 Code : 55351-8 Heart Rate 1 : 77 bpm Height: 5'6" SpO2: 98% Weight: 178 lbs 04/21/2016 Blood Pressure 1: 11474 Code : 8480-6 BMI: 29.1 Code : 47960-1 Heart Rate 1 : 66 bpm Height: 5'6" Weight: 180 lbs 02/27/2016 Blood Pressure 1: 112 Code : 8480-6 BMI: 30.0 Code : 62398-7 Heart Rate 1 : 62 bpm Height: 5'6" SpO2: 99% Weight: 186 lbs 02/04/2016 Blood Pressure 1: 116/72 Code : 8480-6 BMI: 30.2 Code : 11468-0 Heart Rate 1 : 102 bpm Height: 5'6" SpO2: 95% Weight: 187 lbs 12/04/2015 Blood Pressure 1: 110/78 Code : 8480-6 BMI: 30.8 Code : 60092-1 Heart Rate 1 : 88 bpm Height: 5'6" SpO2: 98% Weight: 191 lbs 11/01/2015 Blood Pressure 1: 134/80 Code : 8480-6 BMI: 31.8 Code : 11004-3 Heart Rate 1 : 92 bpm Height: 5'6" SpO2: 99% Weight: 197 lbs 08/31/2015 Blood Pressure 1: 130/84 Code : 8480-6 BMI: 31.5 Code : 62043-0 Heart Rate 1 : 85 bpm Height: 5'6" SpO2: 96% Weight: 195 lbs 07/27/2015 Blood Pressure 1: 134/68 Code : 8480-6 BMI: 30.7 Code : 95206-7 Heart Rate 1 : 84 bpm Height: 5'6" SpO2: 98% Weight: 190 lbs 04/19/2015 Blood Pressure 1: 100/60 Code : 8480-6 BMI: 29.7 Code : 98656-9 Heart Rate 1 : 80 bpm Height: 5'6" SpO2: 94% Weight: 184 lbs 03/12/2015 Blood Pressure 1: 120/68 Code : 8480-6 BMI: 29.7 Code : 10893-0 Heart Rate 1 : 83 bpm Height: 5'6" SpO2: 99% Weight: 184 lbs 01/15/2015 Blood Pressure 1: 128/80 Code : 8480-6 BMI: 29.1 Code : 65675-2 Heart Rate 1 : 88 bpm Height: 5'6" Weight: 180 lbs 02/21/2014 Blood Pressure 1: 128/64 Code : 8480-6 BMI: 26.5 Code : 67532-0 Heart Rate 1 : 76 bpm Height: 5'6" Weight: 164 lbs 11/15/2013 Blood Pressure 1: 120/70 Code : 8480-6 Heart Rate 1: 72 bpm 11/10/2013 Blood Pressure 1: 92/62 Code : 8480-6 BMI: 25.7 Code : 20426-4 Heart Rate 1 : 76 bpm Height: 5'6" Temperature: 36.9 (C) / 98.5 (F) Weight: 159 lbs 07/15/2013 Blood Pressure 1: 118/78 Code : 8480-6 BMI: 26.8 Code : 82931-4 Heart Rate 1 : 80 bpm Height: [...] NSAIDs 07/27/2015 started diclofenac last night from [employer] and it has helped joint [...] NSAIDs 04/19/2015 started diclofenac last night from [employer] and it has helped joint [...] data Encounters Encounter Performer Location Codes Date ([id number]) 21336 EST. PATIENT, LEVEL IV Diagnosis: Dyshidrosis [pompholyx][ICD10: L30.1] Diagnosis: Inflammatory polyarthropathy[ICD10: M06.4] Diagnosis: Localized edema[ICD10: R60.0] [facility] CPT-4: 85063 10/23/2017 ([id number]) Miscellaneous no charge Diagnosis: Body mass index (BMI) 31.0-31.9, adult[ICD10: Z68.31] [facility] CPT-4: 68343 07/06/2017 ([id number]) 00866 EST. PATIENT, LEVEL IV Diagnosis: Rash and other nonspecific skin eruption[ICD10: R21] Diagnosis: 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[ICD10: M31.30] Diagnosis: Other fatigue[ICD10: R53.83] Diagnosis: Iron deficiency anemia, unspecified[ICD10: D50.9] [facility] CPT-4: 22220 05/14/2017 68838 EST. PATIENT, LEVEL III Diagnosis: Acute laryngopharyngitis[ICD10: J06.0] Diagnosis: Other allergic rhinitis[ICD10: J30.89] Gia Ingram MD, [facility] CPT-4: 11151 04/08/2017 ([id number]) 25209 EST. PATIENT, LEVEL III Diagnosis: Streptococcal pharyngitis[ICD10: J02.0] Maddy Ingram MD, [facility] CPT-4: 74690 08/25/2016 ([id number]) 92625 EST. 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 PATIENT, LEVEL III Diagnosis: Rash and other nonspecific skin eruption[ICD10: R21] Gia Ingram MD, [facility] CPT-4: 80435 04/21/2016 [id number] EST. PATIENT, LEVEL IV Diagnosis: 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[ICD10: M31.30] Diagnosis: Rash and other nonspecific skin eruption[ICD10: R21] Gia Ingram MD, [facility] CPT-4: 95330 02/27/2016 95465 EST. PATIENT, LEVEL III Diagnosis: Other fatigue[ICD10: R53.83] Diagnosis: Major depressive disorder, single episode, moderate[ICD10: F32.1] Diagnosis: 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[ICD10: M31.30] Diagnosis: Other insomnia[ICD10: G47.09] Gia Ingram MD, [facility] CPT-4 : 20364 02/04/2016 60550 EST. PATIENT, LEVEL IV Diagnosis: 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[ICD10: M31.30] Diagnosis: Major depressive disorder, single episode, unspecified[ICD10: F32.9] Gia Ingram MD, [facility] CPT-4: 12873 12/04/2015 61120 EST. PATIENT, LEVEL IV Diagnosis: 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[ICD10: M31.30] Diagnosis: Major depressive disorder, single episode, unspecified[ICD10: F32.9] Gia Ingram MD, [facility] CPT-4: 98073 11/01/2015 ([id number]) 56215 EST. PATIENT, LEVEL IV Diagnosis: 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[ICD10: M31.30] Diagnosis: Body mass index (BMI) 31.0-31.9, adult[ICD10: Z68.31] Diagnosis: Major depressive disorder, single episode, unspecified[ICD10: F32.9] Maddy Ingram MD, [facility] CPT-4: 62813 08/31/2015 ([id number]) 98691 EST. 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 PATIENT, LEVEL IV Diagnosis: Premature 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[ICD9: 256.2] Diagnosis: Depression[ICD9: 311] Diagnosis: Abnormal weight gain[ICD9: 783.1] Diagnosis: Fatigue[ICD9: 780.79] [facility] CPT-4: 99651 01/15/2015 ([id number]) 96853 EST. PATIENT, LEVEL III Diagnosis: Rash[ICD9: 782.1] Diagnosis: CELLULITIS OF FACE[ICD9: 682.0] [facility] CPT- 4: 99859 02/21/2014 ([id number]) 70238 EST. PATIENT, LEVEL III Diagnosis: Dyshidrotic eczema[ICD9: 705.81] Diagnosis: ACUTE URI[ICD9: 465.9] [facility] CPT-4: 08099 11/10/2013 Office outpatient new 20 minutes Diagnosis: ACUTE URI[ICD9: 465.9] [facility] CPT-4: 05140 07/15/2013 Plan of Care Planned Activity Notes Codes Status Date Patient Education: Patient Medication Summary Completed 01/29/2018 Visit Plan: Inflammatory arthritis-check labs-refer to Dr Montgomery-continue methotrexate Dyshidrotic eczema-rx for betamethasone provided and instructed on use Swelling-check labs-consider prn dose of hctz-will call patient with labs results 10/23/2017 Patient Education: Patient Medication Summary Completed 10/23/2017 Care Plan: Referral Order SNOMED-CT : [id number] Pending 10/23/2017 Appointment: Nurse Visit 07/06/2017 Patient Education: Patient Medication Summary Completed 07/06/2017 Visit Plan: Sarina - recommended pt to continue with Humira - monitor symptoms. Iron deficiency - check cbc today. Fatigue - check thyroid function. Obesity - start phentermine 1 tab AM and 1/2 tab noon. 05/14/2017 Appointment: [facility]gram [facility] [place] (15 min) Moderate 05/14/2017 Patient Education: Patient Medication Summary Completed 05/14/2017 Patient Education: Obesity Completed 05/14/2017 Appointment: Maddy Gutierres WPtel: [phone] [place] (30 min) Complex 04/27/2017 Referral: Humphreys, Georges [facility] Referral Initiated 04/20/2017 Visit Plan: URI - [...] allergy spray. 04/08/2017 Appointment: Gia Santos WPtel: [address] [place] [address] (15 min) Moderate 04/08/2017 Patient Education: Patient Medication Summary Completed 04/08/2017 Patient Education: Obesity Completed 04/08/2017 Care Plan: Referral Order SNOMED-CT : [id number] Pending 04/08/2017 Appointment: (30 min) Complex 09/03/2016 [...] for fever/discomfort. 08/25/2016 Appointment: Maddy Gutierres WPtel: [facility] [place] [phone] (10 min) Simple 08/25/2016 Patient Education: Patient Medication Summary Completed 08/25/2016 Visit Plan: Surgical menopause-symptomatic hot flashes- samples of premarin cream [place]-on humira-appt with museum librarian at in the next couple of weeks Ubacneqrik-frhiaudv-jbengehw wellbutrin to twice daily Iron atwijqtlxs-spihey-dxbkvyye oral iron 07/07/2016 Appointment: Maddy Gutierres WPtel: [phone] (30 min) Complex 07/07/2016 Patient Education: Patient Medication Summary Completed 07/07/2016 Patient Education: Obesity Completed 07/07/2016 Visit Plan: Rash - The patient was instructed in appropriate care. The patient was instructed to use the ointment as per RX. The patient is to call for any change in symptoms, increase in size of the lesion, increase in pain. 04/21/2016 Appointment: Gia Santos WPtel: [facility] [place] (10 min) Simple 04/21/2016 Patient Education: [...] the Humira. 02/27/2016 Appointment: Maddy Gutierres WPtel: [phone] [place] (15 min) Moderate 02/27/2016 Patient Education: [...] time insomnia. 02/04/2016 Appointment: Gia Santos WPtel: [facility] [place] (15 min) Moderate 02/04/2016 Patient Education: Patient Medication Summary Completed 02/04/2016 Patient Education: Obesity Completed 02/04/2016 Appointment: Gia Santos WPtel: [facility] (15 min) Moderate 01/03/2016 Visit Plan: Michoacano's-seeing [...] current medications. 12/04/2015 Appointment: Maddy Gutierres WPtel: [phone] [place] (15 min) Moderate 12/04/2015 Patient Education: [...] this patient. 11/01/2015 Appointment: Gia Santos WPtel: [facility] [place] (15 min) Moderate 11/01/2015 Patient Education: [...] voltaren gel - waiting on report from museum librarian. 07/27/2015 Patient Education: Patient Medication Summary Completed 07/27/2015 Appointment: Eloina Ingram WPtel[facility] (15 min) Moderate 07/24/2015 Visit Plan: Multiple joint rslj-xxhztthp-ahnfkifmv with patient-plan to check labs including inflammatory [...] Visit Plan: Menopausal symptoms-hysterectomy Mar 2014- weight ccmy-etgjhze-hqn ncobohh-oymyyntezm-pymguhtia with patient-recommend labs today and then plan to increase estrogen as discussed. Instructed the patient to call if symptoms do not improve or if any worse. Depression- uncontrolled-if labs okay, consider low dose SSRI such as celexa-patient verbalized understanding of plan. 01/15/2015 Visit Plan: Menopausal symptoms-hysterectomy Mar 2014- weight aqwi-lnltyks-dhn hzhxkgh-lxxcefgjxr-zngoetbyk with patient-recommend labs today and then plan [...] warmth, discharge. 02/21/2014 Appointment: Eloina Ingram WPtel: [facility] [facility] 02/21/2014 Patient Education: Patient Medication Summary [...] not resolve. 11/15/2013 Appointment: Maddy Gutierres WPtel: [phone] Surgical Procedure 11/15/2013 Patient Education: Patient Medication [...] s pharmacy. 07/15/2013 Appointment: Maddy Gutierres WPtel: [phone] New Patient 07/15/2013 Patient Education: Patient Medication Summary Completed 07/15/2013 [facility] [place] Referral Initiated Referral: Dr Montgomery Referral Appointment Requested Instructions Comment Referral to Dr Montgomery consider HCTZ for swelling -check labs first . Inflammatory arthritis-check labs -refer to Dr Montgomery-continue methotrexate Dyshidrotic eczema-rx for betamethasone provided and instructed on use Swelling-check labs-consider prn dose of hctz-will call patient with labs results . Myalgia/Arthralgia - recommended pt to start on voltaren gel - waiting on report from museum librarian. . [place]ano's-seeing rheumatolgist at - check cbc [...] Daytime napping worsens night time insomnia. . Cellulitis - continue with oral antibiotics as previously directed, return to clinic as previously directed, call for acute change in symptoms, worsening redness, warmth, discharge. . Rash - The patient was instructed in appropriate care. The patient was instructed to use the ointment as per RX. The patient is to call for any change in symptoms, increase in size of the lesion, increase in pain. . Wegners - recommended pt to continue with Humira - monitor symptoms. Iron deficiency - check cbc today. Fatigue - check thyroid function. Obesity - start phentermine 1 tab AM and 1/2 tab noon. STOP CONTROL CHECK LABS CONTINUE DICLOFENAC . Multiple joint cjmu-nqiciwip-vqplywvvh with patient-plan to check labs including inflammatory markers-will proceed as indicated-instructed patient to continue diclofenac as previously prescribed Depression-check labs and follow up in 1 month-sooner if needed Surgical menopause-stop control due to side effects for 1 months-call if symptoms develop and we will start a low dose estrogen . Menopausal symptoms-hysterectomy Mar 2014-weight gain- fatigue-hot ondpbew-qcfbkfwcst-gcdnzsjea with patient-recommend labs today and then plan to increase estrogen as discussed. Instructed the patient to call if symptoms do not improve or if any worse. Bspevlhybj-mkalkskpgmxm-od labs okay, consider low dose SSRI such as celexa- patient verbalized understanding of plan. . Menopausal symptoms-hysterectomy Mar 2014-weight gain- fatigue-hot hsbzzil-wtklabqxdb-joiwymijl with patient-recommend labs today and then plan to increase estrogen as discussed. Instructed the patient to call if symptoms do not improve or if any worse. Zbszeyokja-zjpqfstlwqni-rl labs okay, consider low dose SSRI such as celexa- patient verbalized understanding of plan. . Rash - The patient was instructed [...] to the initiation of the Humira. . Surgical menopause-symptomatic hot flashes-samples of premarin cream [place]-on humira-appt with museum librarian at in the next couple of weeks Dgoyooqqon-bzxlbzud-atvznxux wellbutrin to twice daily Iron jwtufwwitw-lmbnml-ttkrmvmj oral iron . URI - Pt advised to increase [...] in the nasal steroid allergy spray. . Pharyngitis-Discussed natural and expected course of this diagnosis and need to alert me if symptoms do not follow expected course, or if any worse. Recommended salt water gargles as needed for pain. Tylenol/ motrin as needed for fever/discomfort. . Pharyngitis-Discussed natural and expected course of this diagnosis and need to alert me if symptoms do not follow expected course, or if any worse. Recommended salt water gargles as needed for pain. Tylenol/ motrin as needed for fever/discomfort. . Patient sent to occupational health for workman's comp . Wound Instructions -inflamed skin tag removed-right axilla- Pt was instruced to keep the wound clean, wash with antibacterial soap, use triple antibiotic ointment, call if redness, pustular drainage, or any other acute conerns. Igrown hair right axilla-no shaving x 10-14 days-RX for bactrim-use warm moist heat-call if does not resolve. . [place]'s-seeing rheumatolgist at -started on methotrexate-check [...] month for weight check. Start Belviq . URI - Pt advised to increase fluids, vitamin C. Discussed natural and expected course of this diagnosis and need to alert me if symtpoms do not follow expected course, or if any worse. RX sent to patient's pharmacy. Dyshidrotic eczema-RX for traimcinolone cream-call if does not resolve . [place]'s-seeing rheumatolgist at - check cbc q 4 weeks Chronic Depression and anxiety - the pt has symptoms of chronic anxiety and depression that have been fairly well controlled since the last office visit. The pt has expected periods of exacerbation with abatement of the symptoms with change in situational exposure. No change in current medications. . URI - Pt advised to increase [...]
--- OUTSIDE RECORDS SUMMARY | 2018-06-16 23:35 | XMS REPORT | CCD ---
Author Author [facility] Address [address] [place] [address] Phone Care Team Providers Care Seamstress Fitter Name Role Phone PP Unavailable CCM Unavailable Summary Purpose Interface Exchange Insurance Providers Payer name Policy type / Coverage type Covered republican ID Effective Begin Date Effective End Date [facility] (2012 THRU) Mian [id number] Unknown Unknown Family history Sister Diagnosis Age [...] status Unknown 07/15/[address]: 876646577 Never smoker 07/15/2013 Alcohol history Unknown occasionally drinks alcohol 07/15/2013 Has the patient ever used illegal drugs? 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 ICD-9: 446.4 ICD-10: M31.30 Active 07/06/2016 Unknown Acute laryngopharyngitis ICD-9: 465.0 ICD-10: J06.0 [...] Problems Condition Codes Effective Dates Condition Status Body mass index (BMI) 31.0-31.9, adult ICD-9: V85.31 ICD-10: Z68.31 08/30/2015 Active Iron deficiency anemia, unspecified ICD-9: 280.9 ICD-10: D50.9 07/06/2016 Active Other fatigue ICD-9: 780.79 ICD-10: R53.83 02/03/2016 Active Rash and other nonspecific skin eruption ICD-9: 782.1 ICD-10: R21 04/20/2016 Active 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 ICD-9: 446.4 ICD-10: M31.30 07/06/2016 Active Acute laryngopharyngitis ICD-9: 465.0 ICD-10: J06.0 [...] Start Date Stop Date Status Fill Instructions methotrexate sodium 2.5 mg tablet RxNorm: 879950 6 Tablet(s) PO QW TAKE 6 TABLETS EVERY WEEK ON Thursday07/06/20172018 Active folic acid 1 mg tablet RxNorm: 850582 1 Tablet(s) PO daily 06/30/2018 Active Sprintec (28) 0.25 mg-35 mcg tablet RxNorm: 222534 1 Tablet(s) PO daily 06/17/2017 10/14/2017 Active phentermine 37.5 mg tablet RxNorm: 892255 Tablet(s) 1 tab AM and 1/2 tab noon PO 05/14/2017 No Stop Date Active Keflex 500 mg capsule RxNorm: 202291 1 Capsule(s) PO TID 201605/13/2017 Inactive Keflex 500 mg capsule RxNorm: 881341 1 Capsule(s) PO TID 201605/05/2017 Inactive Zithromax Z-Shai 250 mg tablet RxNorm: 717392 1 Tablet(s) PO UD 04/08/2017 05/13/2017 Inactive methotrexate sodium 2.5 mg tablet RxNorm: 109764 TAKE 6 TABLETS EVERY WEEK ON Thursday11/03/2016 05/13/2017 Inactive amoxicillin 500 mg tablet RxNorm: 509192 1 Tablet(s) PO BID 09/03/2016 Inactive Wellbutrin SR 150 mg tablet,sustained-release RxNorm: 309483 1 Tablet(s) PO BID TAKE ONE TABLET BY MOUTH TWICE DAILY 07/07/2016 05/13/2017 Inactive ferrous sulfate 325 mg (65 mg iron) tablet RxNorm: 511002 1 Tablet(s) PO daily TAKE ONE TABLET BY MOUTH ONCE DAILY 07/07/2016 05/13/2017 Inactive methotrexate sodium 2.5 mg tablet RxNorm: 456397 6 Tablet(s) PO QW on Thursday07/07/2016 11/02/2016 Inactive Wellbutrin SR 150 mg tablet,sustained-release RxNorm: 148675 TAKE ONE TABLET BY MOUTH TWICE DAILY 06/10/2016 07/06/2016 Inactive ferrous sulfate 325 mg (65 mg iron) tablet RxNorm: 336896 TAKE ONE TABLET BY MOUTH ONCE DAILY 06/06/2016 07/06/2016 Inactive betamethasone valerate 0.1 % topical cream RxNorm: 567194 1 Application TOP BID 04/21/2016 05/13/2017 Inactive ketoconazole 2 % topical cream RxNorm: 727241 1 Application TOP BID 04/21/2016 05/13/2017 Inactive Wellbutrin SR 150 mg tablet,sustained-release RxNorm: 613890 TAKE ONE TABLET BY MOUTH TWICE DAILY 03/11/2016 04/09/2016 Inactive betamethasone valerate 0.1 % topical cream RxNorm: 031561 1 Application TOP BID 02/27/2016 04/20/2016 Inactive Premarin 0.625 mg tablet RxNorm: 159946 1 Tablet(s) PO daily 02/03/2016 Inactive ferrous sulfate 325 mg (65 mg iron) tablet RxNorm: 033448 1 Tablet(s) PO daily 12/31/2015 04/28/2016 Inactive folic acid 1 mg tablet RxNorm: 618763 1 Tablet(s) PO daily 05/13/2017 Inactive Wellbutrin SR 150 mg tablet,sustained-release RxNorm: 676267 1 Tablet(s) PO BID 12/31/2015 01/29/2016 Inactive triamcinolone acetonide 0.025 % topical cream RxNorm: 0312072 1 Application TOP BID 12/04/2015 05/13/2017 Inactive Topamax 25 mg tablet RxNorm: 452554 1 Tablet(s) PO QHS x 7 days, then notify clinic with how symptoms are 11/05/2015 Inactive Wellbutrin SR 150 mg tablet,sustained-release RxNorm: 417859 1 Tablet(s) PO BID 11/01/2015 11/29/2015 Inactive Topamax 25 mg tablet RxNorm: 437069 1 Tablet(s) PO QHS x 7 days, then notify clinic with how symptoms are 09/26/2015 Inactive ferrous sulfate 325 mg (65 mg iron) tablet RxNorm: 453439 1 Tablet(s) PO daily 09/26/2015 12/30/2015 Inactive Topamax 25 mg tablet RxNorm: 855987 1 Tablet(s) PO daily 201509/25/2015 Inactive Belviq 10 mg tablet RxNorm: 0196267 1 Tablet(s) PO BID 201512/03/2015 Inactive Deplin (algal oil) 15 mg-90.314 mg capsule RxNorm: 1 Capsule(s) PO daily 08/31/2015 12/30/2015 Inactive Wellbutrin 75 mg tablet RxNorm: 826502 1 Tablet(s) PO BID 08/3008/30/2015 Inactive Wellbutrin 75 mg tablet RxNorm: 401088 1 Tablet(s) PO BID 08/3010/31/2015 Inactive methotrexate sodium 2.5 mg tablet RxNorm: 005417 6 Tablet(s) PO QW on Thursday08/22/2015 07/06/2016 Inactive folic acid 1 mg tablet RxNorm: 908836 1 Tablet(s) PO daily 02/201608/30/2015 Inactive ferrous sulfate 325 mg (65 mg iron) tablet RxNorm: 009186 1 Tablet(s) PO daily 08/22/2015 09/25/2015 Inactive folic acid 1 mg tablet RxNorm: 678771 1 Tablet(s) PO daily 02/201608/21/2015 Inactive prednisone 5 mg tablet RxNorm: 885813 1 Tablet(s) PO daily 02/201602/03/2016 Inactive Voltaren 1 % topical gel RxNorm: 875862 2 Gram(s) TOP QID to hands, elbows, knees 07/27/2015 08/25/2015 Inactive ferrous sulfate 325 mg (65 mg iron) tablet RxNorm: 602736 1 Tablet(s) PO daily 07/23/2015 08/21/2015 Inactive ferrous sulfate 325 mg (65 mg iron) tablet RxNorm: 674258 1 Tablet(s) PO daily 05/25/2015 07/22/2015 Inactive prednisone 10 mg tablet RxNorm: 125966 1 Tablet(s) PO UD 201406/07/2015 Inactive 10mg PO daily for 2 weeks, then 5mg PO daily for 2 weeks prednisone 10 mg tablet RxNorm: 546175 1 Tablet(s) PO UD 201405/10/2015 Inactive 10mg PO daily for 2 weeks, then 5mg PO daily for 2 weeks prednisone 20 mg tablet RxNorm: 079242 1 Tablet(s) PO UD 201405/11/2015 Inactive prednisone 20mg daily x 2 days and then 1/2 tab daily x 2 days and then 1/2 QOD x 2 days then stop ferrous sulfate 325 mg (65 mg iron) tablet RxNorm: 667067 1 Tablet(s) PO daily 04/23/2015 04/22/2015 Inactive prednisone 20 mg tablet RxNorm: 335277 1 Tablet(s) PO UD 201404/22/2015 Inactive 3 tab daily x 3 days, 2 tab daily x 3 day, 1 tab daily x 3 days, 1/2 tab daily x 3 days, 1/2 tab every other day x 3 doses then stop ferrous sulfate 325 mg (65 mg iron) tablet RxNorm: 387928 1 Tablet(s) PO daily 04/23/2015 05/24/2015 Inactive prednisone 20 mg tablet RxNorm: 853856 1 Tablet(s) PO UD 201404/26/2015 Inactive 3 tab daily x 3 days, 2 tab daily x 3 day, 1 tab daily x 3 days, 1/2 tab daily x 3 days, 1/2 tab every other day x 3 doses then stop Wellbutrin 75 mg tablet RxNorm: 719753 1 Tablet(s) PO BID 02/0804/18/2015 Inactive Wellbutrin 75 mg tablet RxNorm: 882818 1 Tablet(s) PO BID 02/0802/07/2015 Inactive mupirocin 2 % topical ointment RxNorm: 692726 1 Application TOP TID apply to rash on face 02/21/2014 03/02/2014 Inactive [SAVINGS FOR UNINSURED PATIENTS -- BIN: 901246, PCN: [id number], Group: [id number], ID# [id number], Process claim through [employer] , for questions: . THIS IS NOT INSURANCE.] sulfamethoxazole 800 mg-trimethoprim 160 mg tablet RxNorm: 637281 1 Tablet(s) PO BID 02/21/2014 03/02/2014 Inactive [SAVINGS FOR UNINSURED PATIENTS -- BIN:619468, PCN: ASPROD1, Group: [id number], ID# [id number], Process claim through [employer], for questions: . THIS IS NOT INSURANCE.] Bactrim DS 800 mg-160 mg tablet RxNorm: 123425 1 Tablet(s) PO BID 11/15/2013 11/21/2013 Inactive triamcinolone acetonide 0.1 % topical cream RxNorm: 2070206 1 Application TOP BID 11/10/2013 11/19/2013 Inactive amoxicillin 500 mg tablet RxNorm: 440347 1 Tablet(s) PO TID 07/14/2013 Inactive amoxicillin 500 mg tablet RxNorm: 247340 1 Tablet(s) PO TID 07/24/2013 Inactive diclofenac sodium 75 mg tablet,delayed release RxNorm: 856267 1 Tablet(s) PO BID No Start Date 07/26/2015 Inactive Zithromax Z-Shai 250 mg tablet RxNorm: 469637 Tablet(s) PO No Start Date 09/25/2015 Inactive phentermine 37.5 mg capsule RxNorm: 021298 1 Capsule(s) PO daily No Start Date 05/13/2017 Inactive Premarin 0.625 mg tablet RxNorm: 038798 1 Tablet(s) PO daily No Start Date 01/07/2016 Inactive Wellbutrin SR 150 mg tablet,sustained-release RxNorm: 264631 1 Tablet(s) PO BID No Start Date 12/30/2015 Inactive Sprintec (28) 0.25 mg-35 mcg tablet RxNorm: 814361 1 Tablet(s) PO daily No Start Date 04/18/2015 Inactive methotrexate sodium 2.5 mg tablet RxNorm: 688215 6 Tablet(s) PO QW on Thursday No Start Date 08/21/2015 Inactive Medication Administered No Medication Administered data Immunizations Vaccine Codes Date Status PPD Unknown 03/12/2015 completed Influenza CVX: 141 07/15/2013 completed Assessments Condition Codes Effective Dates Body mass index (BMI) 31.0-31.9, adult ICD-10: Z68.31 ICD-9: V85.31 07/06/2017 Iron deficiency anemia, unspecified ICD-10: D50.9 ICD-9: 280.9 05/14/2017 Other fatigue ICD-10: R53.83 ICD-9: 780.79 05/14/2017 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 ICD-10: M31.30 ICD-9: 446.4 05/14/2017 Rash and other nonspecific skin eruption [...] Visit Reason For Visit Effective Dates Notes depression 05/14/2017 sore throat 04/08/2017 sore throat 08/25/2016 medication follow up 07/07/2016 rash 04/21/2016 rash 02/27/2016 depression 02/04/2016 depression 12/04/2015 depression 11/01/2015 depression 08/31/2015 edema 07/27/2015 edema 04/19/2015 knee pain 03/12/2015 weight gain/obesity 01/15/2015 rash 02/21/2014 bilat wrists and forehead acrochordon (skin tags) 11/15/2013 rash 11/10/2013 sore throat 07/15/2013 Results Observation Observation Code Item Item Code Result Date Comp Metabolic Ygu497 NA 138 mEq/L 05/14/2017 Comp Metabolic Zji600 K 3.6 mEq/L 05/14/2017 Comp Metabolic Joq947 CL 103 mEq/L 05/14/2017 Comp Metabolic Qxt421 CO2 30.0 mEq/L 05/14/2017 Comp Metabolic Kiv108 ANION GAP 9 05/14/2017 Comp Metabolic Ovk710 GLUCOSE 113 mg/dL 05/14/2017 Comp Metabolic Hba865 Creat 0.6 mg/dL 05/14/2017 Comp Metabolic Wiu124 eGFR 124 ml/min/1.73m2 05/14/2017 Comp Metabolic Wzh343 BUN 12 mg/dL 05/14/2017 Comp Metabolic Agc224 B/C Ratio 19.7 Ratio 05/14/2017 Comp Metabolic Pyp760 CALCIUM 9.1 mg/dL 05/14/2017 Comp Metabolic Lhp169 ALK PHOS 61 U/L 05/14/2017 Comp Metabolic Lgo107 AST(SGOT) 14 U/L 05/14/2017 Comp Metabolic Emc629 ALT(SGPT) 11 U/L 05/14/2017 Comp Metabolic Ajl417 BILI T 0.4 mg/dL 05/14/2017 Comp Metabolic Opw557 ALBUMIN 4.0 g/dL 05/14/2017 Comp Metabolic Vka938 TPRO 6.6 g/dL 05/14/2017 Comp Metabolic Owh439 GLOB 2.6 g/dL 05/14/2017 Comp Metabolic Fbn600 A/G Ratio 1.5 Ratio 05/14/2017 Comp Metabolic Xnn541 Osmo 276 mOsmo 05/14/2017 Free T4 Tlu583 FREE T4 0.76 ng/dL 05/14/2017 Tsh Ord6 hTSH II 1.89 uIU/mL 05/14/2017 Cbc With Differential Ord2 WBC 9.18 K/ul 05/14/2017 Cbc With Differential Ord2 RBC 4.36 M/ul 05/14/2017 Cbc With Differential Ord2 HGB 12.6 g/dl 05/14/2017 Cbc With Differential Ord2 Neut% 62.5 % 05/14/2017 Cbc With Differential Ord2 HCT 37.4 % 05/14/2017 Cbc With Differential Ord2 MCV 85.8 fl 05/14/2017 Cbc With Differential Ord2 Lymph% 30.0 % 05/14/2017 Cbc With Differential Ord2 MCH 28.9 pg 05/14/2017 Cbc With Differential Ord2 [place]% 5.4 % 05/14/2017 Cbc With Differential Ord2 MCHC 33.7 pg 05/14/2017 Cbc With Differential Ord2 Eos% 2.0 % 05/14/2017 Cbc With Differential Ord2 PLT 317 K/ul 05/14/2017 Cbc With Differential Ord2 Baso% 0.1 % 05/14/2017 Cbc With Differential Ord2 RDW 13.9 % 05/14/2017 Cbc With Differential Ord2 Neut ABS# 5.74 K/ul 05/14/2017 Cbc With Differential Ord2 Lymph ABS# 2.75 K/ul 05/14/2017 Cbc With Differential Ord2 [place] ABS# 0.5 K/ul 05/14/2017 Cbc With Differential Ord2 Eos ABS# 0.2 K/ul 05/14/2017 Cbc With Differential Ord2 Baso ABS# 0.0 K/ul 05/14/2017 C RAP A SC [id number] Strep A Positive 08/25/2016 Cbc With Differential Ord2 WBC 9.33 K/ul 08/25/2016 Cbc With Differential Ord2 RBC 4.51 M/ul 08/25/2016 Cbc With Differential Ord2 HGB 13.4 g/dl 08/25/2016 Cbc With Differential Ord2 Neut% 72.0 % 08/25/2016 Cbc With Differential Ord2 HCT 39.4 % 08/25/2016 Cbc With Differential Ord2 MCV 87.4 fl 08/25/2016 Cbc With Differential Ord2 Lymph% 17.6 % 08/25/2016 Cbc With Differential Ord2 MCH 29.7 pg 08/25/2016 Cbc With Differential Ord2 [place]% 7.6 % 08/25/2016 Cbc With Differential Ord2 MCHC 34.0 pg 08/25/2016 Cbc With Differential Ord2 Eos% 2.6 % 08/25/2016 Cbc With Differential Ord2 PLT 269 K/ul 08/25/2016 Cbc With Differential Ord2 Baso% 0.2 % 08/25/2016 Cbc With Differential Ord2 RDW 13.5 % 08/25/2016 Cbc With Differential Ord2 Neut ABS# 6.72 K/ul 08/25/2016 Cbc With Differential Ord2 Lymph ABS# 1.64 K/ul 08/25/2016 Cbc With Differential Ord2 [place] ABS# 0.7 K/ul 08/25/2016 Cbc With Differential [...] 30.3 % 07/04/2016 Cbc With Differential Ord2 MCH 30.3 pg 07/04/2016 Cbc With Differential Ord2 [place]% 7.7 % 07/04/2016 Cbc With Differential Ord2 MCHC 34.1 pg 07/04/2016 Cbc With Differential Ord2 Eos% 3.0 % 07/04/2016 Cbc With Differential Ord2 PLT 322 K/ul 07/04/2016 Cbc With Differential Ord2 Baso% 0.1 % 07/04/2016 Cbc With Differential Ord2 RDW 14.6 % 07/04/2016 Cbc With Differential Ord2 Neut ABS# 4.83 K/ul 07/04/2016 Cbc With Differential Ord2 Lymph ABS# 2.49 K/ul 07/04/2016 Cbc With Differential Ord2 [place] ABS# 0.6 K/ul 07/04/2016 Cbc With Differential [...] 12.4 g/dl 02/28/2016 Cbc With Differential Ord2 Neut% 65.6 % 02/28/2016 Cbc With Differential Ord2 HCT 38.2 % 02/28/2016 Cbc With Differential Ord2 MCV 88.4 fl 02/28/2016 Cbc With Differential Ord2 Lymph% 26.6 % 02/28/2016 Cbc With Differential Ord2 MCH 28.7 pg 02/28/2016 Cbc With Differential Ord2 [place]% 4.2 % 02/28/2016 Cbc With Differential Ord2 MCHC 32.5 pg 02/28/2016 Cbc With Differential Ord2 Eos% 3.3 % 02/28/2016 Cbc With Differential Ord2 PLT 305 K/ul 02/28/2016 Cbc With Differential Ord2 Baso% 0.3 % 02/28/2016 Cbc With Differential Ord2 RDW 14.8 % 02/28/2016 Cbc With Differential Ord2 Neut ABS# 4.96 K/ul 02/28/2016 Cbc With Differential Ord2 Lymph ABS# 2.01 K/ul 02/28/2016 Cbc With Differential Ord2 [place] ABS# 0.3 K/ul 02/28/2016 Cbc With Differential Ord2 Eos ABS# 0.3 K/ul 02/28/2016 Cbc With Differential Ord2 Baso ABS# 0.0 K/ul 02/28/2016 Comp Metabolic Xfe337 NA 138 mEq/L 02/28/2016 Comp Metabolic Yaj735 K 3.8 mEq/L 02/28/2016 Comp Metabolic Dmq408 CL 103 mEq/L 02/28/2016 Comp Metabolic Zwf711 CO2 31.0 mEq/L 02/28/2016 Comp Metabolic Uzw087 ANION GAP 8 02/28/2016 Comp Metabolic Sok152 GLUCOSE 83 mg/dL 02/28/2016 Comp Metabolic Dfo651 Creat 0.7 mg/dL 02/28/2016 Comp Metabolic Lbo364 eGFR 106 ml/min/1.73m2 02/28/2016 Comp Metabolic Kvn914 BUN 12 mg/dL 02/28/2016 Comp Metabolic Dli590 B/C Ratio 17.1 Ratio 02/28/2016 Comp Metabolic Qvl717 CALCIUM 9.7 mg/dL 02/28/2016 Comp Metabolic Tuv438 ALK PHOS 92 U/L 02/28/2016 Comp Metabolic Rkp323 AST(SGOT) 14 U/L 02/28/2016 Comp Metabolic Kek901 ALT(SGPT) 11 U/L 02/28/2016 Comp Metabolic Nmr005 BILI T 0.5 mg/dL 02/28/2016 Comp Metabolic Riy014 ALBUMIN 4.6 g/dL 02/28/2016 Comp Metabolic Ack948 TPRO 7.1 g/dL 02/28/2016 Comp Metabolic Zfy030 GLOB 2.5 g/dL 02/28/2016 Comp Metabolic Ihs980 A/G Ratio 1.9 Ratio 02/28/2016 Comp Metabolic Vtb992 Osmo 275 mOsmo 02/28/2016 Cbc With Differential Ord2 WBC 8.38 K/ul 01/07/2016 Cbc With Differential Ord2 RBC 4.36 M/ul 01/07/2016 Cbc With Differential Ord2 HGB 12.2 g/dl 01/07/2016 Cbc With Differential Ord2 Neut% 68.1 % 01/07/2016 Cbc With Differential Ord2 HCT 37.1 % 01/07/2016 Cbc With Differential Ord2 MCV 85.1 fl 01/07/2016 Cbc With Differential Ord2 Lymph% 23.4 % 01/07/2016 Cbc With Differential Ord2 MCH 28.0 pg 01/07/2016 Cbc With Differential Ord2 [place]% 6.2 % 01/07/2016 Cbc With Differential Ord2 MCHC 32.9 pg 01/07/2016 Cbc With Differential Ord2 Eos% 2.1 % 01/07/2016 Cbc With Differential Ord2 PLT 342 K/ul 01/07/2016 Cbc With Differential Ord2 Baso% 0.2 % 01/07/2016 Cbc With Differential Ord2 RDW 15.6 % 01/07/2016 Cbc With Differential Ord2 Neut ABS# 5.70 K/ul 01/07/2016 Cbc With Differential Ord2 Lymph ABS# 1.96 K/ul 01/07/2016 Cbc With Differential Ord2 [place] ABS# 0.5 K/ul 01/07/2016 Cbc With Differential Ord2 Eos ABS# 0.2 K/ul 01/07/2016 Cbc With Differential Ord2 Baso ABS# 0.0 K/ul 01/07/2016 Comp Metabolic Vwr215 NA 138 mEq/L 12/04/2015 Comp Metabolic Rki879 K 4.0 mEq/L 12/04/2015 Comp Metabolic Fzg760 CL 104 mEq/L 12/04/2015 Comp Metabolic Sgx215 CO2 28.0 mEq/L 12/04/2015 Comp Metabolic Lxk429 ANION GAP 10 12/04/2015 Comp Metabolic Egs266 GLUCOSE 84 mg/dL 12/04/2015 Comp Metabolic Zbb295 Creat 0.8 mg/dL 12/04/2015 Comp Metabolic Pvu659 eGFR 89 ml/min/1.73m2 12/04/2015 Comp Metabolic Xpa370 BUN 13 mg/dL 12/04/2015 Comp Metabolic Brc334 B/C Ratio 15.9 Ratio 12/04/2015 Comp Metabolic Xxx517 CALCIUM 9.7 mg/dL 12/04/2015 Comp Metabolic Sfk599 ALK PHOS 109 U/L 12/04/2015 Comp Metabolic Eyr612 AST(SGOT) 15 U/L 12/04/2015 Comp Metabolic Asb889 ALT(SGPT) 11 U/L 12/04/2015 Comp Metabolic Pbf848 BILI T 0.4 mg/dL 12/04/2015 Comp Metabolic Biy718 ALBUMIN 4.7 g/dL 12/04/2015 Comp Metabolic Cvx164 TPRO 7.5 g/dL 12/04/2015 Comp Metabolic Cjp958 GLOB 2.9 g/dL 12/04/2015 Comp Metabolic Piy400 A/G Ratio 1.6 Ratio 12/04/2015 Comp Metabolic Rbo730 Osmo 275 mOsmo 12/04/2015 Cbc With Differential [...] 20.7 % 12/04/2015 Cbc With Differential Ord2 MCH 27.0 pg 12/04/2015 Cbc With Differential Ord2 [place]% 5.5 % 12/04/2015 Cbc With Differential Ord2 MCHC 32.2 pg 12/04/2015 Cbc With Differential Ord2 Eos% 2.1 % 12/04/2015 Cbc With Differential Ord2 PLT 347 K/ul 12/04/2015 Cbc With Differential Ord2 Baso% 0.1 % 12/04/2015 Cbc With Differential Ord2 RDW 15.6 % 12/04/2015 Cbc With Differential Ord2 Neut ABS# 5.35 K/ul 12/04/2015 Cbc With Differential Ord2 Lymph ABS# 1.55 K/ul 12/04/2015 Cbc With Differential Ord2 [place] ABS# 0.4 K/ul 12/04/2015 Cbc With Differential [...] 34.3 % 11/01/2015 Cbc With Differential Ord2 MCV 81.7 fl 11/01/2015 Cbc With Differential Ord2 Lymph% 22.1 % 11/01/2015 Cbc With Differential Ord2 MCH 26.4 pg 11/01/2015 Cbc With Differential Ord2 [place]% 5.4 % 11/01/2015 Cbc With Differential Ord2 MCHC 32.4 pg 11/01/2015 Cbc With Differential Ord2 Eos% 1.3 % 11/01/2015 Cbc With Differential Ord2 PLT 420 K/ul 11/01/2015 Cbc With Differential Ord2 Baso% 0.1 % 11/01/2015 Cbc With Differential Ord2 RDW 15.5 % 11/01/2015 Cbc With Differential Ord2 Neut ABS# 5.90 K/ul 11/01/2015 Cbc With Differential Ord2 Lymph ABS# 1.84 K/ul 11/01/2015 Cbc With Differential Ord2 [place] ABS# 0.5 K/ul 11/01/2015 Cbc With Differential [...] 11.7 g/dl 08/31/2015 Cbc With Differential Ord2 HCT 37.2 % 08/31/2015 Cbc With Differential Ord2 Neut% 70.6 % 08/31/2015 Cbc With Differential Ord2 MCV 82.3 fl 08/31/2015 Cbc With Differential Ord2 Lymph% 19.8 % 08/31/2015 Cbc With Differential Ord2 MCH 25.9 pg 08/31/2015 Cbc With Differential Ord2 [place]% 7.4 % 08/31/2015 Cbc With Differential Ord2 MCHC 31.5 pg 08/31/2015 Cbc With Differential Ord2 Eos% 2.0 % 08/31/2015 Cbc With Differential Ord2 Baso% 0.2 % 08/31/2015 Cbc With Differential Ord2 PLT 393 K/ul 08/31/2015 Cbc With Differential Ord2 Neut ABS# 5.98 K/ul 08/31/2015 Cbc With Differential Ord2 RDW 15.1 % 08/31/2015 Cbc With Differential Ord2 Lymph ABS# 1.68 K/ul 08/31/2015 Cbc With Differential Ord2 [place] ABS# 0.6 K/ul 08/31/2015 Cbc With Differential Ord2 Eos ABS# 0.2 K/ul 08/31/2015 Cbc With Differential Ord2 Baso ABS# 0.0 K/ul 08/31/2015 Cbc With Differential Ord2 New Analyzer Notice Please note new ref ranges starting 06-27-2015 due to implemntation of new five part differential hematolgy analyzer. 08/31/2015 Comp Metabolic Ykg630 NA 135 mEq/L 08/31/2015 Comp Metabolic Fdo513 K 4.3 mEq/L 08/31/2015 Comp Metabolic Adq550 CL 99 mEq/L 08/31/2015 Comp Metabolic Kka672 CO2 26.0 mEq/L 08/31/2015 Comp Metabolic Wpr818 ANION GAP 14 08/31/2015 Comp Metabolic Rel818 GLUCOSE 70 mg/dL 08/31/2015 Comp Metabolic Cpd122 Creat 0.7 mg/dL 08/31/2015 Comp Metabolic Nsh539 eGFR 116 ml/min/1.73m2 08/31/2015 Comp Metabolic Suo287 BUN 17 mg/dL 08/31/2015 Comp Metabolic Oid459 B/C Ratio 26.2 Ratio 08/31/2015 Comp Metabolic Txh616 CALCIUM 9.6 mg/dL 08/31/2015 Comp Metabolic Cbw538 ALK PHOS 90 U/L 08/31/2015 Comp Metabolic Tho625 AST(SGOT) 17 U/L 08/31/2015 Comp Metabolic Wrk433 ALT(SGPT) 23 U/L 08/31/2015 Comp Metabolic Gkp030 BILI T 0.4 mg/dL 08/31/2015 Comp Metabolic Dou770 ALBUMIN 4.2 g/dL 08/31/2015 Comp Metabolic Blb202 TPRO 7.3 g/dL 08/31/2015 Comp Metabolic Iqd532 GLOB 3.1 g/dL 08/31/2015 Comp Metabolic Sgq749 A/G Ratio 1.4 Ratio 08/31/2015 Comp Metabolic Ofz606 Osmo 270 mOsmo 08/31/2015 [place] Spotted Fever Igg/Igm 907089 [place] SPOTTED FEVER IGM EIA . 05/13/2015 [place] Spotted Fever Igg/Igm 945297 RMSF, IGM 0.32 index 05/13/2015 [place] Spotted Fever Igg/Igm 477848 KARISSA MT SPOTTED FEVER IGG EIA FLEX . 05/13/2015 [place] Spotted Fever Igg/Igm 927021 RMSF, IGG SCREEN-FLEX Negative 05/13/2015 Antineutrophil Cytoplasmic Ab [id number] ANTI -PR3 (C-ANCA) 4.0-5.9 EU/mL 05/09/2015 Antineutrophil Cytoplasmic Ab [id number] ANTI -MPO (P-ANCA) >5.9 EU/mL 05/09/2015 Antineutrophil Cytoplasmic Ab [id number] 05/09/2015 Ehrlichia Chaffeensis Antibody Igm 345703 EHRLICHIA CHAFFEENSIS IGM < 1:16 05/09/2015 Lymes Disease Total Antibodies With Western Blot Reflex [id number] B. BURGDORFERI, IGG/IGM 0.12 LI 05/09/2015 Lymes Disease Total Antibodies With Western Blot Reflex [id number] 05/09/2015 Ehrlichia Chaffeensis Antibody Igg 183993 EHRLICHIA CHAFFEENSIS IGG <1:64 05/09/2015 Sjogren'S Ab Anti-Ss-A/-Ss-B [id number] SSA ( [place]) ANTIBODY,IGG 1.3 EU/mL 04/30/2015 Sjogren'S Ab Anti-Ss-A/-Ss-B 821486 SSB ( [place]) ANTIBODY,IGG 1.9 EU/mL 04/30/2015 Fatuma 487402 FATUMA (WILMER) SCREEN NONE DETECTED 04/30/2015 Anti-Dsdna Antibodies 059099 dsDNA ANTIBODY,IGG <0.1 IU/mL 04/30/2015 Anti-Dsdna Antibodies 655253 04/30/2015 Anti-Dsdna Antibodies 483510 dsDNA ANTIBODY,IGG TEST NOT PERFORMED IU/mL 04/26/2015 Antineutrophil Cytoplasmic Ab 253143 ANTI -PR3 (C-ANCA) TEST NOT PERFORMED EU/mL 04/26/2015 Antineutrophil Cytoplasmic Ab [id number] ANTI -MPO (P-ANCA) TEST NOT PERFORMED EU/mL 04/26/2015 Sjogren'S Ab Anti-Ss-A/-Ss-B 184226 SSA ( Ro) ANTIBODY,IGG TEST NOT PERFORMED EU/ mL 04/26/2015 Sjogren'S Ab Anti-Ss-A/-Ss-B 420772 SSB ( [place]) ANTIBODY,IGG TEST NOT PERFORMED EU/ mL 04/26/2015 Fatuma [id number] FATUMA ([place]IL[place]) SCREEN TEST NOT PERFORMED 04/26/2015 Actin (Smooth Muscle) Antibody [id number] F- ACTIN ANTIBODY, IGG 8 Units 04/24/2015 Tibc Ord40 Iron 24 ug/dl 04/20/2015 Tibc Ord40 UIBC 225 ug/dL 04/20/2015 Tibc Ord40 TIBC 249 ug/dL 04/20/2015 Tibc Ord40 Fe-%Sat 9.6 % 04/20/2015 Ferritin Ord22 FERRITIN 67.6 ng/mL 04/20/2015 Sed Rate Ord21 ESR 68 mm/hr 04/19/2015 Uric Acid Ord77 Uric A 3.9 mg/dL 04/19/2015 Ra Factor Kur712 RA FACTOR <10 IU/ml 04/19/2015 C-Reactive Protein Qnt Crqnt CRP 8.7 mg/dl 04/19/2015 Tsh Ord6 hTSH II 1.89 uIU/mL 04/19/2015 Comp Metabolic Aft784 NA 138 mEq/L 04/19/2015 Comp Metabolic Dki881 K 4.1 mEq/L 04/19/2015 Comp Metabolic How590 CL 102 mEq/L 04/19/2015 Comp Metabolic Zhs053 CO2 28.0 mEq/L 04/19/2015 Comp Metabolic Foo192 ANION GAP 12 04/19/2015 Comp Metabolic Zmo118 GLUCOSE 79 mg/dL 04/19/2015 Comp Metabolic Upw988 Creat 0.6 mg/dL 04/19/2015 Comp Metabolic Pil405 eGFR 123 ml/min/1.73m2 04/19/2015 Comp Metabolic Tjv309 BUN 18 mg/dL 04/19/2015 Comp Metabolic Quv158 B/C Ratio 29.0 Ratio 04/19/2015 Comp Metabolic Bkw555 CALCIUM 9.2 mg/dL 04/19/2015 Comp Metabolic Fna202 ALK PHOS 84 U/L 04/19/2015 Comp Metabolic Pvx650 AST(SGOT) 27 U/L 04/19/2015 Comp Metabolic Fdq431 ALT(SGPT) 35 U/L 04/19/2015 Comp Metabolic Kkp073 BILI T 0.3 mg/dL 04/19/2015 Comp Metabolic Vst273 ALBUMIN 3.8 g/dL 04/19/2015 Comp Metabolic Sib492 TPRO 6.5 g/dL 04/19/2015 Comp Metabolic Uqg910 GLOB 2.8 g/dL 04/19/2015 Comp Metabolic Ncn199 A/G Ratio 1.4 Ratio 04/19/2015 Comp Metabolic Sag430 Osmo 276 mOsmo 04/19/2015 Cbc With Differential [...] hTSH II 3.05 uIU/mL 01/15/2015 Comp Metabolic Xtt662 NA 137 mEq/L 01/15/2015 Comp Metabolic Jub959 K 4.3 mEq/L 01/15/2015 Comp Metabolic Uvq411 CL 99 mEq/L 01/15/2015 Comp Metabolic Yxi455 CO2 28.0 mEq/L 01/15/2015 Comp Metabolic Aag288 ANION GAP 14 01/15/2015 Comp Metabolic Ikl782 GLUCOSE 76 mg/dL 01/15/2015 Comp Metabolic Mor993 Creat 0.7 mg/dL 01/15/2015 Comp Metabolic Hij946 eGFR 107 ml/min/1.73m2 01/15/2015 Comp Metabolic Ykx786 BUN 12 mg/dL 01/15/2015 Comp Metabolic Huh376 B/C Ratio 17.1 Ratio 01/15/2015 Comp Metabolic Ilg625 CALCIUM 9.4 mg/dL 01/15/2015 Comp Metabolic Iph136 ALK PHOS 51 U/L 01/15/2015 Comp Metabolic Hna048 AST(SGOT) 14 U/L 01/15/2015 Comp Metabolic Kdr420 ALT(SGPT) 12 U/L 01/15/2015 Comp Metabolic Saf479 BILI T 0.3 mg/dL 01/15/2015 Comp Metabolic Wyy020 ALBUMIN 4.2 g/dL 01/15/2015 Comp Metabolic Nwi639 TPRO 6.8 g/dL 01/15/2015 Comp Metabolic Sek339 GLOB 2.6 g/dL 01/15/2015 Comp Metabolic Yjy264 A/G Ratio 1.6 Ratio 01/15/2015 Comp Metabolic Ezm490 Osmo 272 mOsmo 01/15/2015 Cbc With Differential [...] Result Effective Dates Constitutional No recent illness 2016 Constitutional fatigue [...] tenderness 01/15/2015 None Full Exam - General 1995 Abdomen abdominal exam Overall: normal bowel sounds [...] retractions 01/15/2015 None Full Exam - General 1995 Respiratory respiratory effort/rhythm Overall: normal rate 01/15/2015 [...] nourished 02/21/2014 None Full Exam - General 1994 Constitutional general appearance Overall: well developed 02/21/2014 [...] time 02/21/2014 None Full Exam - General 1994 Integument inspection of skin Dermatitis: pustule 02/21/2014 [...] Date REMOVAL OF SKIN TAGS <W/15 CPT-4: 84678 11/15/2013 Vital Signs Date Vital 07/06/2017 Blood Pressure 1: 122/82 Code : 8480-6 Heart Rate 1: 99 bpm SpO2: 98% 05/14/2017 Blood Pressure 1: 124/78 Code : 8480-6 BMI: 31.2 Code : 55489-4 Heart Rate 1 : 91 bpm Height: 5'6" SpO2: 97% Weight: 193 lbs 04/08/2017 Blood Pressure 1: 122/72 Code : 8480-6 BMI: 30.3 Code : 44424-2 Heart Rate 1 : 86 bpm Height: 5'6" SpO2: 96% Weight: 188 lbs 08/25/2016 Blood Pressure 1: 110/80 Code : 8480-6 Heart Rate 1: 83 bpm Height: SpO2: 98% Temperature: 36.7 (C) / 98.0 (F) Weight: 07/07/2016 Blood Pressure 1: 122/64 Code : 8480-6 BMI: 28.7 Code : 39053-9 Heart Rate 1 : 77 bpm Height: 5'6" SpO2: 98% Weight: 178 lbs 04/21/2016 Blood Pressure 1: 114 Code : 8480-6 BMI: 29.1 Code : 13475-8 Heart Rate 1 : 66 bpm Height: 5'6" Weight: 180 lbs 02/27/2016 Blood Pressure 1: 11274 Code : 8480-6 BMI: 30.0 Code : 74815-1 Heart Rate 1 : 62 bpm Height: 5'6" SpO2: 99% Weight: 186 lbs 02/04/2016 Blood Pressure 1: 116/72 Code : 8480-6 BMI: 30.2 Code : 68862-8 Heart Rate 1 : 102 bpm Height: 5'6" SpO2: 95% Weight: 187 lbs 12/04/2015 Blood Pressure 1: 110/78 Code : 8480-6 BMI: 30.8 Code : 63037-0 Heart Rate 1 : 88 bpm Height: 5'6" SpO2: 98% Weight: 191 lbs 11/01/2015 Blood Pressure 1: 134/80 Code : 8480-6 BMI: 31.8 Code : 42354-8 Heart Rate 1 : 92 bpm Height: 5'6" SpO2: 99% Weight: 197 lbs 08/31/2015 Blood Pressure 1: 130/84 Code : 8480-6 BMI: 31.5 Code : 13867-7 Heart Rate 1 : 85 bpm Height: 5'6" SpO2: 96% Weight: 195 lbs 07/27/2015 Blood Pressure 1: 134/68 Code : 8480-6 BMI: 30.7 Code : 78589-9 Heart Rate 1 : 84 bpm Height: 5'6" SpO2: 98% Weight: 190 lbs 04/19/2015 Blood Pressure 1: 100/60 Code : 8480-6 BMI: 29.7 Code : 38041-1 Heart Rate 1 : 80 bpm Height: 5'6" SpO2: 94% Weight: 184 lbs 03/12/2015 Blood Pressure 1: 120/68 Code : 8480-6 BMI: 29.7 Code : 01882-5 Heart Rate 1 : 83 bpm Height: 5'6" SpO2: 99% Weight: 184 lbs 01/15/2015 Blood Pressure 1: 128/80 Code : 8480-6 BMI: 29.1 Code : 83156-4 Heart Rate 1 : 88 bpm Height: 5'6" Weight: 180 lbs 02/21/2014 Blood Pressure 1: 128/64 Code : 8480-6 BMI: 26.5 Code : 46753-7 Heart Rate 1 : 76 bpm Height: 5'6" Weight: 164 lbs 11/15/2013 Blood Pressure 1: 120/70 Code : 8480-6 Heart Rate 1: 72 bpm 11/10/2013 Blood Pressure 1: 92/62 Code : 8480-6 BMI: 25.7 Code : 61594-9 Heart Rate 1 : 76 bpm Height: 5'6" Temperature: 36.9 (C) / 98.5 (F) Weight: 159 lbs 07/15/2013 Blood Pressure 1: 118/78 Code : 8480-6 BMI: 26.8 Code : 06386-3 Heart Rate 1 : 80 bpm Height: 5'6" Temperature: 37.1 (C) / 98.8 (F) Weight: 166 lbs Functional Status No Functional Status data History of Present Illness Symptom Name Status Result Effective Date Notes depression Quality constant 05/14/2017 None depression Quality [...] NSAIDs 07/27/2015 started diclofenac last night from [employer] [facility] and it has helped joint complaint [...] NSAIDs 04/19/2015 started diclofenac last night from [employer] and it has helped joint complaint [...] data Encounters Encounter Performer Location Codes Date ([id number]) Miscellaneous no charge Diagnosis: Body mass index (BMI) 31.0-31.9, adult[ICD10: Z68.31] Eloina Ingram MD, [facility] CPT-4: 97396 07/06/2017 ([id number]) 00122 EST. 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 PATIENT, LEVEL III Diagnosis: Acute laryngopharyngitis[ICD10: J06.0] Diagnosis: Other allergic rhinitis[ICD10: J30.89] Gia Ingram MD, [facility] CPT-4: 15806 04/08/2017 ([id number]) 33077 EST. PATIENT, LEVEL III Diagnosis: Streptococcal pharyngitis[ICD10: J02.0] Maddy Ingram MD, [facility] CPT-4: 27829 08/25/2016 ([id number]) 46172 EST. 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 PATIENT, LEVEL III Diagnosis: Rash and other nonspecific skin eruption[ICD10: R21] Gia Ingram MD, [facility] CPT-4: 71977 04/21/2016 73609 EST. PATIENT, LEVEL IV Diagnosis: 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[ICD10: M31.30] Diagnosis: Rash and other nonspecific skin eruption[ICD10: R21] Gia Ingram MD, [facility] CPT-4: 11131 02/27/2016 22714 EST. PATIENT, LEVEL III Diagnosis: Other fatigue[ICD10: R53.83] Diagnosis: Major depressive disorder, single episode, moderate[ICD10: F32.1] Diagnosis: 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[ICD10: M31.30] Diagnosis: Other insomnia[ICD10: G47.09] Gia Ingram MD, [facility] CPT-4 : 05376 02/04/2016 47045 EST. PATIENT, LEVEL IV Diagnosis: 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[ICD10: M31.30] Diagnosis: Major depressive disorder, single episode, unspecified[ICD10: F32.9] Gia Ingram MD, [facility] CPT-4: 44186 12/04/2015 63433 EST. PATIENT, LEVEL IV Diagnosis: 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[ICD10: M31.30] Diagnosis: Major depressive disorder, single episode, unspecified[ICD10: F32.9] Gia Ingram MD, [facility] CPT-4: 71157 11/01/2015 ([id number]) 76729 EST. PATIENT, LEVEL IV Diagnosis: 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[ICD10: M31.30] Diagnosis: Body mass index (BMI) 31.0-31.9, adult[ICD10: Z68.31] Diagnosis: Major depressive disorder, single episode, unspecified[ICD10: F32.9] Maddy Ingram MD, [facility] CPT-4: 60822 08/31/2015 ([id number]) 96719 EST. 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 PATIENT, LEVEL IV Diagnosis: Premature 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[ICD9: 256.2] Diagnosis: Depression[ICD9: 311] Diagnosis: Abnormal weight gain[ICD9: 783.1] Diagnosis: Fatigue[ICD9: 780.79] Maddy Ingram MD, [facility] CPT-4: 98424 01/15/2015 ([id number]) 98142 EST. PATIENT, LEVEL III Diagnosis: Rash[ICD9: 782.1] Diagnosis: CELLULITIS OF FACE[ICD9: 682.0] Eloina Ingram MD, [facility] CPT- 4: 58917 02/21/2014 ([id number]) 36017 EST. PATIENT, LEVEL III Diagnosis: Dyshidrotic eczema[ICD9: 705.81] Diagnosis: ACUTE URI[ICD9: 465.9] Maddy Ingram MD, [facility] CPT-4: 46961 11/10/2013 Office outpatient new 20 minutes Diagnosis: ACUTE URI[ICD9: 465.9] Maddy Ingram MD, [facility] CPT-4: 67497 07/15/2013 Plan of Care Planned Activity Notes Codes Status Date Patient Education: Patient Medication Summary Completed 07/06/2017 Visit Plan: Sarina - recommended pt to continue with Humira - monitor symptoms. Iron deficiency - check cbc today. Fatigue - check thyroid function. Obesity - start phentermine 1 tab AM and 1/2 tab noon. 05/14/2017 Appointment: Eloina Ingram WPtel: [address] [place], [place] [address] (15 min) Moderate 05/14/2017 Patient Education: Patient Medication Summary Completed 05/14/2017 Patient Education: Obesity Completed 05/14/2017 Appointment: Maddy Gutierres WPtel: [address] [place], [place] [phone] (30 min) Complex 04/27/2017 [facility] Referral Initiated 04/20/2017 Visit Plan: URI - [...] allergy spray. 04/08/2017 Appointment: Gia Santos WPtel: [facility] (15 min) Moderate 04/08/2017 Patient Education: Patient Medication Summary Completed 04/08/2017 Patient Education: Obesity Completed 04/08/2017 Care Plan: Referral Order SNOMED-CT : [id number] Pending 04/08/2017 Appointment: (30 min) Complex 09/03/2016 [...] for fever/discomfort. 08/25/2016 Appointment: Maddy Gutierres WPtel: [phone] (10 min) Simple 08/25/2016 Patient Education: Patient Medication Summary Completed 08/25/2016 Visit Plan: Surgical menopause-symptomatic hot flashes- samples of premarin cream [employer]-on humira-appt with sdv pilot/navigator/dds operator at in the next couple of weeks Onvtcxzkki-tkztrkyy-uzaekkvt wellbutrin to twice daily Iron ullcbeblnm-pdlsuj-ahbrkapy oral iron 07/07/2016 Appointment: Maddy Gutierres WPtel: [facility] [place] [address] (30 min) Complex 07/07/2016 Patient Education: Patient Medication Summary Completed 07/07/2016 Patient Education: Obesity Completed 07/07/2016 Visit Plan: Rash - The patient was instructed in appropriate care. The patient was instructed to use the ointment as per RX. The patient is to call for any change in symptoms, increase in size of the lesion, increase in pain. 04/21/2016 Appointment: Gia Santos WPtel: [facility] (10 min) Simple 04/21/2016 Patient Education: Patient [...] the Humira. 02/27/2016 Appointment: Maddy Gutierres WPtel: [phone] (15 min) Moderate 02/27/2016 Patient Education: Patient [...] time insomnia. 02/04/2016 Appointment: Gia Santos WPtel: [facility] (15 min) Moderate 02/04/2016 Patient Education: Patient Medication Summary Completed 02/04/2016 Patient Education: Obesity Completed 02/04/2016 Appointment: Gia Santos WPtel: [address] [place] [place] [phone] ([facility] min) Moderate 01/03/2016 Visit Plan: Michoacano's-seeing [...] current medications. 12/04/2015 Appointment: Maddy Gutierres WPtel: [phone] [place] [address] (15 min) Moderate 12/04/2015 Patient Education: Patient [...] this patient. 11/01/2015 Appointment: Gia Santos WPtel: [facility] (15 min) Moderate 11/01/2015 Patient Education: Patient [...] appropriately prescribed for this patient. [facility] Obesity - chronic issue with this patient. [...] voltaren gel - waiting on report from sdv pilot/navigator/dds operator. 07/27/2015 Patient Education: Patient Medication Summary Completed 07/27/2015 Appointment: Eloina Ingram WPtel[facility] (15 min) Moderate 07/24/2015 Visit Plan: Multiple joint zuxh-loinknpd-athrrtnoz with patient-plan to check labs including inflammatory [...] Visit Plan: Menopausal symptoms-hysterectomy Mar 2014- weight iytv-qwmttmn-nrm skofrfw-taaxxuqtmy-pplybbxkb with patient-recommend labs today and then plan to increase estrogen as discussed. Instructed the patient to call if symptoms do not improve or if any worse. Depression- uncontrolled-if labs okay, consider low dose SSRI such as celexa-patient verbalized understanding of plan. 01/15/2015 Visit Plan: Menopausal symptoms-hysterectomy Mar 2014- weight nngd-nbhtqrq-qpm ocxyrly-nksruurqoz-qlkzezbrg with patient-recommend labs today and then plan [...] warmth, discharge. 02/21/2014 Appointment: Eloina Ingram WPtel: [address] [place] [address] 02/21/2014 Patient Education: Patient Medication Summary Completed [...] not resolve. 11/15/2013 Appointment: Maddy Gutierres WPtel: [facility] [place] [address] Surgical Procedure 11/15/2013 Patient Education: Patient Medication [...] s pharmacy. 07/15/2013 Appointment: [facility] Gutierres [facility]el[facility] [phone] [phone] New Patient 07/15/2013 Patient Education: Patient Medication Summary Completed 07/15/2013 [facility]: [facility] Referral Initiated Instructions Comment . Myalgia/Arthralgia - recommended pt to start on voltaren gel - waiting on report from sdv pilot/navigator/dds operator. . Michoacano's-seeing rheumatolgist at - check cbc [...] CHECK LABS CONTINUE DICLOFENAC . Multiple joint aocz-nkifoqar-ybaadjiiy with patient-plan to check labs including inflammatory markers-will proceed as indicated-instructed patient to continue diclofenac as previously prescribed Depression-check labs and follow up in 1 month-sooner if needed Surgical menopause-stop control due to side effects for 1 months-call if symptoms develop and we will start a low dose estrogen . Menopausal symptoms-hysterectomy Mar 2014-weight gain- fatigue-hot svrgmcr-efilmigith-gzsihtsgk with patient-recommend labs today and then plan to increase estrogen as discussed. Instructed the patient to call if symptoms do not improve or if any worse. Eqrrpukotm-kannoyqhkctj-aq labs okay, consider low dose SSRI such as celexa- patient verbalized understanding of plan. . Menopausal symptoms-hysterectomy Mar 2014-weight gain- fatigue-hot xdlfied-xrhgraplfk-qiquytlud with patient-recommend labs today and then plan to increase estrogen as discussed. Instructed the patient to call if symptoms do not improve or if any worse. Dqirhhugvz-fsbolcanxebp-or labs okay, consider low dose SSRI such [...] flashes-samples of premarin cream [employer]-on humira-appt with sdv pilot/navigator/dds operator at in the next couple of weeks Andykiiedx-tmtpqcts-vhbqmsru wellbutrin to twice daily Iron rurnstbetf-ffznot-eeuikwqx oral iron . URI - Pt advised [...]
--- OUTSIDE RECORDS SUMMARY | 2018-06-16 23:36 | XMS REPORT | Continuity of Care Document ---
Author Author [facility] Organization [facility] Address Unknown Phone Unavailable Allergies Active Description Code Type Severity Reaction Onset Reported/Identified Relationship to Patient Clinical Status Yes No Known Drug Allergies [id number] Drug Allergy Unknown N/A 04/24/2009 Medications There is no data. 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 CARRIER/SUSPECTED CARRIER 08/24/2011 Ot 644.21 EARLY ONSET DELIVERY-DEL 08/24/2011 Ot 654.21 PREV DELIVRY W/ OR W/O MENT ANT 08/24/2011 Ot 657.01 POLYHYDRAMNIOS,DEL W OR W/O MENTN ANTEPA 08/24/2011 Ot V27.0 DELIVER- SINGLE LIVEBORN 12/01/2011 Ot 625.8 FEM GENITAL SYMPTOMS NEC 12/01/2011 Ot 626.8 MENSTRUAL DISORDER NEC 09/20/2013 BENJAMÍN NUNO DO Ot 338.18 OTHER ACUTE POSTOPERATIVE PAIN 09/20/2013 BENJAMÍN NUNO DO Ot 599.0 URIN TRACT INFECTION NOS 09/20/2013 BENJAMÍN NUNO DO Ot 789.00 ABDOMINAL PAIN, UNSPECIFIED SITE 03/14/2014 JUDY LONDON, OVIDIO Colvin Ot 620.1 CORPUS LUTEUM CYST 06/22/2014 Ot 729.5 06/22/2014 Ot 654.23 06/22/2014 Ot V72.63 06/22/2014 Ot V74.8 06/22/2014 Ot 625.8 06/22/2014 Ot 626.8 06/22/2014 Ot V72.63 06/22/2014 Ot V74.8 07/25/2014 Ot 729.5 07/25/2014 Ot 654.23 07/25/2014 Ot V72.63 07/25/2014 Ot V74.8 07/25/2014 Ot 625.8 07/25/2014 Ot 626.8 07/25/2014 Ot V72.63 07/25/2014 Ot V74.8 06/27/2015 ECTOR LONDON, NISH Summers Ot J32.0 06/27/2015 NISH BARNEY MD, Ot J32.3 01/14/2016 OVIDIO KIM MD Ot 540.9 ACUTE APPENDICITIS NOS 01/14/2016 OVIDIO KIM MD Ot 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 01/14/2016 OVIDIO KIM MD Ot 617.0 UTERINE ENDOMETRIOSIS 01/14/2016 OVIDIO KIM MD Ot 626.8 MENSTRUAL DISORDER NEC 01/14/2016 OVIDIO KIM MD Ot V72.63 PRE-PROCEDURAL LABORATORY EXAMINATION 01/14/2016 OVIDIO KIM MD Ot V72.84 EXAM PRE-OPERATIVE NOS 01/14/2016 OVIDIO KIM MD Ot V74.8 SCREEN-BACTERIAL DIS NEC 01/14/2016 OVIDIO KIM MD Ot 285.9 ANEMIA NOS 01/14/2016 OVIDIO KIM MD Ot 625.9 FEM GENITAL SYMPTOMS NOS 01/14/2016 OVIDIO KIM MD Ot V72.63 PRE-PROCEDURAL LABORATORY EXAMINATION 01/14/2016 OVIDIO KIM MD Ot V74.8 SCREEN-BACTERIAL DIS NEC 01/14/2016 SUSAN LONDON, PHILLIP Phan Ot 782.1 NONSPECIF SKIN ERUPT NEC 01/14/2016 ECTOR LONDON, NISH Summers Ot J32.0 CHRONIC MAXILLARY SINUSITIS 01/14/2016 ECTOR LONDON, NISH Summers Ot 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 01/14/2016 MG LONDON, NILS Bruno Ot M25.511 PAIN IN RIGHT SHOULDER 01/14/2016 MG LONDON, NILS Bruno Ot M79.601 PAIN IN RIGHT ARM 12/31/2016 Ot 654.23 PREV DELIVERY, ANTEPARTUM COND 12/31/2016 Ot V72.63 PRE- PROCEDURAL LABORATORY EXAMINATION 12/31/2016 Ot V74.8 SCREEN- BACTERIAL DIS NEC 12/31/2016 Ot 625.8 FEM GENITAL SYMPTOMS NEC 12/31/2016 Ot 626.8 MENSTRUAL DISORDER NEC 12/31/2016 Ot V72.63 PRE- PROCEDURAL LABORATORY EXAMINATION 12/31/2016 Ot V74.8 SCREEN- BACTERIAL DIS NEC 04/09/2017 Ot 625.8 FEM GENITAL SYMPTOMS NEC 04/09/2017 Ot 626.8 MENSTRUAL DISORDER NEC 04/09/2017 Ot V72.63 PRE- PROCEDURAL LABORATORY EXAMINATION 04/09/2017 Ot V74.8 SCREEN- BACTERIAL DIS NEC 04/09/2017 Ot 625.8 FEM GENITAL SYMPTOMS NEC 04/09/2017 Ot 626.8 MENSTRUAL DISORDER NEC 04/09/2017 Ot V72.63 PRE- PROCEDURAL LABORATORY EXAMINATION 04/09/2017 Ot V74.8 SCREEN- BACTERIAL DIS NEC 07/30/2017 OVIDIO KIM MD Ot 540.9 ACUTE APPENDICITIS NOS 07/30/2017 OVIDIO KIM MD Ot 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 07/30/2017 OVIDIO KIM MD Ot 617.0 UTERINE ENDOMETRIOSIS 07/30/2017 OVIDIO IKM MD Ot 626.8 MENSTRUAL DISORDER NEC 07/30/2017 OVIDIO KIM MD Ot V72.63 PRE-PROCEDURAL LABORATORY EXAMINATION 07/30/2017 OVIDIO KIM MD Ot V72.84 EXAM PRE-OPERATIVE NOS 07/30/2017 OVIDIO KIM MD Ot V74.8 SCREEN-BACTERIAL DIS NEC 07/30/2017 OVIDIO KIM MD Ot 285.9 ANEMIA NOS 07/30/2017 OVIDIO KIM MD Ot 625.9 FEM GENITAL SYMPTOMS NOS 07/30/2017 OVIDIO KIM MD Ot V72.63 PRE-PROCEDURAL LABORATORY EXAMINATION 07/30/2017 OVIDIO KIM MD Ot V74.8 SCREEN-BACTERIAL DIS NEC 07/30/2017 SUSAN LONDON, PHILLIP Phan Ot 782.1 NONSPECIF SKIN ERUPT NEC 07/30/2017 ECTOR LONDON, NISH Summers Ot J32.0 CHRONIC MAXILLARY SINUSITIS 07/30/2017 ECTOR LONDON, NISH Summers Ot 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 07/30/2017 LOKI LONDON, CONCHITA Gordillo Ot Z01.818 ENCOUNTER FOR OTHER PREPROCEDURAL EXAMIN 07/31/2017 LOKI LONDON, CONCHITA Gordillo Ot Z01.818 ENCOUNTER FOR OTHER PREPROCEDURAL EXAMIN 08/06/2017 OVIDIO KIM MD Ot 540.9 ACUTE APPENDICITIS NOS 08/06/2017 OVIDIO KIM MD Ot 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 08/06/2017 OVIDIO KIM MD Ot 617.0 UTERINE ENDOMETRIOSIS 08/06/2017 OVIDIO KIM MD Ot 626.8 MENSTRUAL DISORDER NEC 08/06/2017 OVIDIO KIM MD Ot V72.63 PRE-PROCEDURAL LABORATORY EXAMINATION 08/06/2017 OVIDIO KIM MD Ot V72.84 EXAM PRE-OPERATIVE NOS 08/06/2017 OVIDIO KIM MD Ot V74.8 SCREEN-BACTERIAL DIS NEC 08/06/2017 OVIDIO KIM MD Ot 285.9 ANEMIA NOS 08/06/2017 OVIDIO KIM MD Ot 625.9 FEM GENITAL SYMPTOMS NOS 08/06/2017 OVIDIO KIM MD Ot V72.63 PRE-PROCEDURAL LABORATORY EXAMINATION 08/06/2017 OVIDIO KIM MD Ot V74.8 SCREEN-BACTERIAL DIS NEC 08/06/2017 SUSAN LONDON, PHILLIP Phan Ot 782.1 NONSPECIF SKIN ERUPT NEC 08/06/2017 ECTOR LONDON, NISH Summers Ot J32.0 CHRONIC MAXILLARY SINUSITIS 08/06/2017 ECTOR LONDON, NISH Summers Ot 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 08/06/2017 CONCHITA MANJARREZ MD Ot J35.01 CHRONIC TONSILLITIS 08/06/2017 CONCHITA MANJARREZ MD Ot Z79.899 OTHER CARE HOME (CURRENT) DRUG THERAPY 08/10/2017 CONCHITA MANJARREZ MD Ot J35.01 CHRONIC TONSILLITIS 08/10/2017 CONCHITA MANJARREZ MD Ot Z79.899 OTHER CARE HOME (CURRENT) DRUG THERAPY 08/10/2017 CONCHITA MANJARREZ MD Ot J35.01 CHRONIC TONSILLITIS 08/10/2017 CONCHITA MANJARREZ MD Ot Z79.899 OTHER CARE HOME (CURRENT) DRUG THERAPY 08/28/2017 NURYS DO, BENJAMÍN K Ot M06.9 RHEUMATOID ARTHRITIS, UNSPECIFIED 08/28/2017 NURYS DO, BENJAMÍN K Ot R07.81 PLEURODYNIA 08/28/2017 NURYS DO, BENJAMÍN K Ot R10.11 RIGHT UPPER QUADRANT PAIN 08/28/2017 NURYS DO BENJAMÍN K Ot Z87.59 PERSONAL HISTORY OF COMP OF PREG, CHLDBR 08/28/2017 NURYS DO, BENJAMÍN K Ot Z90.49 ACQUIRED ABSENCE OF OTHER SPECIFIED PART 08/28/2017 NURYS DO, BENJAMÍN K Ot Z90.710 ACQUIRED ABSENCE OF BOTH CERVIX AND UTER 08/28/2017 NURYS DO, BENJAMÍN K Ot Z90.89 ACQUIRED ABSENCE OF OTHER ORGANS 08/31/2017 NURYS DO, BENJAMÍN K Ot M06.9 RHEUMATOID ARTHRITIS, UNSPECIFIED 08/31/2017 NURYS DO, BENJAMÍN K Ot R07.81 PLEURODYNIA 08/31/2017 NURYS DO, BENJAMÍN K Ot R10.11 RIGHT UPPER QUADRANT PAIN 08/31/2017 NURYS DO, BENJAMÍN K Ot Z87.59 PERSONAL HISTORY OF COMP OF PREG, CHLDBR 08/31/2017 NURYS DO, BENJAMÍN K Ot Z90.49 ACQUIRED ABSENCE OF OTHER SPECIFIED PART 08/31/2017 NURYS DO, BENJAMÍN K Ot Z90.710 ACQUIRED ABSENCE OF BOTH CERVIX AND UTER 08/31/2017 NURYS DO, BENJAMÍN K Ot Z90.89 ACQUIRED ABSENCE OF OTHER ORGANS Procedures Code Description Performed By Performed On 74.1 LOW CERVICAL 08/21/2011 Results Test Result Range Complete blood count (CBC) with automated white blood cell (WBC) differential - 01/14/16 03:30 Blood leukocytes automated count (number/volume) 9.3 10*3/uL 4.3-11.0 Blood erythrocytes automated count (number/volume) 4.65 10*6/uL 4.35-5.85 Venous blood hemoglobin measurement (mass/volume) 13.0 g/dL 11.5-16.0 Blood hematocrit (volume fraction) 39 % 35-52 Automated erythrocyte mean corpuscular volume 84 [foz_us] 80-99 Automated erythrocyte mean corpuscular hemoglobin (mass per erythrocyte) 28 pg 25-34 Automated erythrocyte mean corpuscular hemoglobin concentration measurement ( mass/volume) 33 g/dL 32-36 Automated erythrocyte distribution width ratio 15.2 % 10.0-14.5 Automated blood platelet count (count/volume) 365 10*3/uL 130-400 Automated blood platelet mean volume measurement 10.0 [foz_us] 7.4-10.4 Automated blood neutrophils/100 leukocytes 69 % 42-75 Automated blood lymphocytes/100 leukocytes 23 % 12-44 Blood monocytes/100 leukocytes 6 % 0-12 Automated blood eosinophils/100 leukocytes 2 % 0-10 Automated blood basophils/100 leukocytes 0 % 0-10 Blood neutrophils automated count (number/volume) 6.4 10*3 1.8-7.8 Blood lymphocytes automated count (number/volume) 2.1 10*3 1.0-4.0 Blood monocytes automated count (number/volume) 0.6 10*3 0.0-1.0 Automated eosinophil count 0.2 10*3/uL 0.0-0.3 Automated blood basophil count (count/volume) 0.0 10*3/uL 0.0-0.1 Serum or plasma uric acid measurement (mass/volume) - 01/14/16 03:30 Serum or plasma uric acid measurement (mass/volume) 3.7 mg/dL 2.6-7.2 Serum or plasma C reactive protein measurement (mass/volume) - 01/14/16 03:30 Serum or plasma C reactive protein measurement (mass/volume) 0.82 mg /dL 0.00-0.50 Erythrocyte sedimentation rate by westergren method - 01/14/16 03:30 Erythrocyte sedimentation rate by westergren method 13 mm 0-20 Complete blood count (CBC) with automated white blood cell (WBC) differential - 08/06/17 07:13 Blood leukocytes automated count (number/volume) 6.8 10*3/uL 4.3-11.0 Blood erythrocytes automated count (number/volume) 4.53 10*6/uL 4.35-5.85 Venous blood hemoglobin measurement (mass/volume) 13.4 g/dL 11.5-16.0 Blood hematocrit (volume fraction) 39 % 35-52 Automated erythrocyte mean corpuscular volume 86 [foz_us] 80-99 Automated erythrocyte mean corpuscular hemoglobin (mass per erythrocyte) 30 pg 25-34 Automated erythrocyte mean corpuscular hemoglobin concentration measurement ( mass/volume) 35 g/dL 32-36 Automated erythrocyte distribution width ratio 13.3 % 10.0-14.5 Automated blood platelet count (count/volume) 304 10*3/uL 130-400 Automated blood platelet mean volume measurement 9.8 [foz_us] 7.4-10.4 Automated blood neutrophils/100 leukocytes 60 % 42-75 Automated blood lymphocytes/100 leukocytes 29 % 12-44 Blood monocytes/100 leukocytes 8 % 0-12 Automated blood eosinophils/100 leukocytes 3 % 0-10 Automated blood basophils/100 leukocytes 0 % 0-10 Blood neutrophils automated count (number/volume) 4.1 10*3 1.8-7.8 Blood lymphocytes automated count (number/volume) 2.0 10*3 1.0-4.0 Blood monocytes automated count (number/volume) 0.5 10*3 0.0-1.0 Automated eosinophil count 0.2 10*3/uL 0.0-0.3 Automated blood basophil count (count/volume) 0.0 10*3/uL 0.0-0.1 Methicillin resistant Staphylococcus aureus (MRSA) screening culture - 07:13 Methicillin resistant Staphylococcus aureus (MRSA) screening culture NEG [facility] Complete blood count (CBC) with automated white blood cell (WBC) differential - 08/28/17 18:20 Blood leukocytes automated count (number/volume) 8.6 10*3/uL 4.3-11.0 Blood erythrocytes automated count (number/volume) 4.13 10*6/uL 4.35-5.85 Venous blood hemoglobin measurement (mass/volume) 12.1 g/dL 11.5-16.0 Blood hematocrit (volume fraction) 35 % 35-52 Automated erythrocyte mean corpuscular volume 85 [foz_us] 80-99 Automated erythrocyte mean corpuscular hemoglobin (mass per erythrocyte) 29 pg 25-34 Automated erythrocyte mean corpuscular hemoglobin concentration measurement ( mass/volume) 35 g/dL 32-36 Automated erythrocyte distribution width ratio 12.6 % 10.0-14.5 Automated blood platelet count (count/volume) 310 10*3/uL 130-400 Automated blood platelet mean volume measurement 10.0 [foz_us] 7.4-10.4 Automated blood neutrophils/100 leukocytes 57 % 42-75 Automated blood lymphocytes/100 leukocytes 34 % 12-44 Blood monocytes/100 leukocytes 7 % 0-12 Automated blood eosinophils/100 leukocytes 2 % 0-10 Automated blood basophils/100 leukocytes 0 % 0-10 Blood neutrophils automated count (number/volume) 4.9 10*3 1.8-7.8 Blood lymphocytes automated count (number/volume) 2.9 10*3 1.0-4.0 Blood monocytes automated count (number/volume) 0.6 10*3 0.0-1.0 Automated eosinophil count 0.2 10*3/uL 0.0-0.3 Automated blood basophil count (count/volume) 0.0 10*3/uL 0.0-0.1 Complete urinalysis with reflex to culture - 08/28/17 18:20 Urine color determination YELLOW NRG Urine clarity determination CLEAR NRG Urine pH measurement by test strip 7 5-9 Specific gravity of urine by test strip 1.010 1.016- 1.022 Urine protein assay by test strip, semi-quantitative NEGATIVE NEGATIVE Urine glucose detection by automated test strip NEGATIVE NEGATIVE Erythrocytes detection in urine sediment by light microscopy NEGATIVE NEGATIVE Urine ketones detection by automated test strip NEGATIVE NEGATIVE Urine nitrite detection by test strip NEGATIVE NEGATIVE Urine total bilirubin detection by test strip NEGATIVE NEGATIVE Urine urobilinogen measurement by automated test strip (mass/volume) NORMAL NORMAL Urine leukocyte esterase detection by dipstick NEGATIVE NEGATIVE Automated urine sediment erythrocyte count by microscopy (number/high power field) NONE NRG Automated urine sediment leukocyte count by microscopy (number/high power field ) RARE NRG Bacteria detection in urine sediment by light microscopy MODERATE NRG Squamous epithelial cells detection in urine sediment by light microscopy 5-10 NRG Crystals detection in urine sediment by light microscopy NONE NRG Casts detection in urine sediment by light microscopy NONE NRG Mucus detection in urine sediment by light microscopy NEGATIVE NRG Complete urinalysis with reflex to culture NO NRG Comprehensive metabolic panel - 08/28/17 18:20 Serum or plasma sodium measurement (moles/volume) 140 mmol/L 135-145 Serum or plasma potassium measurement (moles/volume) 3.7 mmol/L 3.6-5.0 Serum or plasma chloride measurement (moles/volume) 105 mmol/L 98-107 Carbon dioxide 28 mmol/L 21-32 Serum or plasma anion gap determination (moles/volume) 7 mmol/L 5-14 Serum or plasma urea nitrogen measurement (mass/volume) 11 mg/dL 7-18 Serum or plasma creatinine measurement (mass/volume) 0.80 mg/dL 0.60-1.30 Serum or plasma urea nitrogen/creatinine mass ratio 14 NRG Serum or plasma creatinine measurement with calculation of estimated glomerular filtration rate > NRG Serum or plasma glucose measurement (mass/volume) 86 mg/dL 70-105 Serum or plasma calcium measurement (mass/volume) 9.5 mg/dL 8.5-10.1 Serum or plasma total bilirubin measurement (mass/volume) 0.4 mg/dL 0.1-1.0 Serum or plasma alkaline phosphatase measurement (enzymatic activity/volume) 68 U/L 40-136 Serum or plasma aspartate aminotransferase measurement (enzymatic activity/ volume) 21 U/L 5-34 Serum or plasma alanine aminotransferase measurement (enzymatic activity/volume ) 20 U/L 0-55 Serum or plasma protein measurement (mass/volume) 6.9 g/dL 6.4-8.2 Serum or plasma albumin measurement (mass/volume) 4.1 g/dL 3.2-4.5 Serum or plasma amylase measurement (enzymatic activity/volume) - 08/28/17 18: 20 Serum or plasma amylase measurement (enzymatic activity/volume) 62 U /L 25-125 Lipase - 08/28/17 18:20 Lipase 17 U/L 8-78 Encounters ACCT No. Visit Date/Time Discharge Status Pt. Type Provider Facility Loc./Unit Complaint [id number] 08/28/2017 17:06:00 08/28/2017 19:31:00 DIS Emergency BENJAMÍN NUNO DO [facility] ER R SIDE PAIN [id number] 08/06/2017 06:44:00 08/06/2017 11:40:00 DIS Outpatient LOKI LONDON, CONCHITA Gordillo [facility] SDC CHRONIC TONSILLITIS [id number] 07/30/2017 05:30:00 07/30/2017 15:09:00 DIS Outpatient CONCHITA MANJARREZ MD [facility] PREOP CHRONIC TONSILLITIS [id number] 01/14/2016 03:08:00 01/14/2016 04:37:00 DIS Emergency NILS HOLLIDAY MD [facility] ER R ARM PAIN [id number] 06/13/2015 09:58:00 06/13/2015 23:59:59 CLS Outpatient NISH BARNEY MD [facility] RAD CHRONIC NASAL CONGESTION [id number] 03/15/2015 15:52:00 03/15/2015 23:59:59 CLS Outpatient CASIMIRO MOE [facility] RAD INJURY TO KNEE [id number] 03/06/2015 09:48:00 03/06/2015 23:59:59 CLS Outpatient OCTAVIO RAMOS APRN [facility] QUICK [id number] 03/13/2014 08:55:00 03/14/2014 13:25:00 DIS Outpatient OVIDIO KIM MD [facility] CHRONIC PELVIC PAIN [id number] 03/06/2014 09:43:00 03/06/2014 23:59:59 CLS Outpatient OVIDIO KIM MD [facility] PREOP CHRONIC PELVIC PAIN [id number] 02/21/2014 14:19:00 02/21/2014 23:59:59 CLS Outpatient PHILLIP DAVIS MD [facility] LAB FACIAL RASH [id number] 09/20/2013 10:55:00 09/20/2013 13:29:00 DIS Emergency BENJAMÍN NUNO DO [facility] ER ABD PAIN [id number] 09/19/2013 06:03:00 09/19/2013 23:59:59 CLS Outpatient OVIDIO KIM MD [facility] CHRONIC PELVIC PAIN [id number] 09/16/2013 11:34:00 09/16/2013 23:59:59 CLS Outpatient OVIDIO KIM MD [facility] PREOP CHRONIC PELVIC PAIN [id number] 06/22/2014 11:22:00 Document Registration [id number] 12/01/2011 06:17:00 Document Registration [id number] 11/26/2011 14:44:00 Document Registration [id number] 08/21/2011 11:17:00 Document Registration [id number] 08/19/2011 13:16:00 Document Registration [id number] 08/07/2011 18:28:00 Document Registration [id number] 07/07/2011 16:31:00 Document Registration [id number] 07/06/2011 05:48:00 Document Registration [id number] 09/25/2010 09:07:00 Document Registration [id number] 09/20/2010 22:03:00 Document Registration [id number] 10/15/2009 12:08:00 Document Registration [id number] 03/15/2015 15:53:06 ACT Document Registration 0000 04/27/2017 08:08:56 04/27/2017 23:59:59 CLS Outpatient
--- NOTE | 2018-06-16 23:59 | ED Back Pain ---
General Chief Complaint: Back Problems Stated Complaint: MID BACK PAIN,RT LEG PAIN Nursing Triage Note: PT AMB TO ROOM #6 W/O DIFFICULTY. A&OX4. C/O MEDIAL BACK PAIN THAT RADIATES DOWN POSTERIOR RT LOWER EXTREMITIY FOR APPROX 3 DAYS. 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 DENIES INJURY. PT REPORTS KNOT TO LT LOWER BACK THAT SHE RECENTLY NOTICED. DENIES LOSS OF BOWEL OR BLADDER FUNCTION. DENIES NUMBNESS OR TINGLING TO BILAT LOWER EXTREMITIES. Nursing Sepsis Screen: No Definite Risk Source of Information: Patient, Family Exam Limitations: No Limitations History of Present Illness Date Seen by Provider: Jun 16, 2018 Time Seen by Provider: 23:39 Initial Comments Patient resents to ER by private conveyance with her mother and chief complaint of 3 days constant low back pain on both sides left worse than right but then radiating down her right buttock down the back of her right leg and into her right foot. She's having no numbness, paresthesias, saddle anesthesia, urinary frequency, dysuria, incontinence or hesitancy. She's had no falls weakness or history of inciting event. No fevers chills nausea vomiting. She also has a nodule on her left flank overlying her last rib posterior. It's the first time she's ever noticed it but it's tender to palpation, mobile, round and not red or swelling. She denies a history of chronic back pain or any previous workup of her back pain. She's never had pain radiating down the back of her leg before. Historically she's had a hysterectomy including her ovaries secondary to 2 or 3 D&Cs and a couple laparoscopic surgeries for endometriosis. She's had no unexpected weight gain or weight loss. She did start a 15 week weight loss challenge just this week and his been for 3 days been drinking 1 gallon of water a day to cleanse. She has not been exercising. Allergies and Home Medications Allergies Coded Allergies: No Known Drug Allergies (Verified , 04/24/09) Home Medications Amoxicillin 250 Mg/5 Ml Susp, 2 TSP PO BID Prescribed by: CHRISS ROMERO on 08/06/17 1058 Dexamethasone 1 Mg/1 Ml Saira, 2 TSP PO DAILY PRN for PAIN Mix 4MG/2.5CC water Prescribed by: CHRISS ROMERO on 08/06/17 1058 Folic Acid 1 Mg Tablet, 1 MG PO DAILY, (Reported) Hydrocodone/Acetaminophen 15 Ml Solution, 2-3 TSP PO Q4H PRN for PAIN-MILD TO MODERATE 2-3 TSP EVERY 4 HOURS NEEDED FOR PAIN Prescribed by: CHRISS ROMERO on 08/06/17 1100 Hyoscyamine Sulfate 0.125 Mg Tab.subl, 1-2 TAB SL Q4H Prescribed by: BENJAMÍN NUNO on 08/28/171912 Pantoprazole Sodium 40 Mg Tablet.dr, 40 MG PO DAILY Prescribed by: BENJAMÍN NUNO on 08/28/171912 Sucralfate 1 Gm Tablet, 1 GM PO QIDACHS Prescribed by: BENJAMÍN NUNO on 08/28/171912 Tetracaine Sucker Ea, 1 EA MT UD PRN for PAIN Tetracain Suckers These suckers are custom made and require a prescription. Moisten the sucker first and then suck on it gently as far back in the mouth as possible for 2-3 days. You can repeadt it in about an hour. This will take the edge off but not completely numb the throat. Prescribed by: CHRISS ROMERO on 08/06/17 105 Patient Home Medication List Home Medication List Reviewed: Yes Review of Systems Constitutional: No chills, No diaphoresis, No fever EENTM: No hearing loss, No ear pain Respiratory: No cough, No short of breath Cardiovascular: No chest pain, No edema Gastrointestinal: No abdominal pain, No constipation, No diarrhea Genitourinary: No discharge, No dysuria, No frequency, No hematuria, No hesitancy : No Past Tqeudzp-Xofzpw-[id number] Hx Patient Social History Alcohol Use: Denies Use Recreational Drug Use: No Smoking Status: Never a Smoker 2nd Hand Smoke Exposure: No Recent Foreign Travel: No Contact w/Someone Who Travel: No Recent Infectious Disease Expo: No Recent Hopitalizations: No Physical Abuse: No Sexual Abuse: No Immunizations Up To Date Tetanus Booster (TDap): Unknown PED Vaccines UTD: No Seasonal Allergies Seasonal Allergies: No Past Medical History Surgeries: Yes (Csection x 2, D&C x2, Diag Lap with Lap appy, HYST/BSO) Abdominal, Adenoidectomy, Appendectomy, Section, Hysterectomy, Oophorectomy, Tonsillectomy Respiratory: No Cardiac: No Neurological: No Reproductive Disorders: Yes Female Reproductive Disorders: Menstrual Problems, 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 RHEUMATOID ARTHRITIS) Rheumatoid Arthritis Endocrine: No HEENT: Yes Tonsilitis Cancer: No Psychosocial: No Integumentary: No Blood Disorders: No Family Medical History Alcoholism 19 FATHER Cardiovascular disease 19 MOTHER Completed stroke G8 BROTHER Dementia Diabetes mellitus G8 BROTHER Hypertension 19 FATHER 19 MOTHER G8 SISTER Thyroid disease 19 MOTHER G8 SISTER No Family History of: AIDS Alzheimer's disease Arthritis Asthma Colon cancer Congenital disease Kidney disease Myocardial infarction Prostate cancer Psychosocial problem Respiratory disorder Seizure disorder Severe allergy Physical Exam Vital Signs Vital Signs - First Documented 06/16/18 23:31 Temp 96.9 Pulse 74 Resp 18 B/P (MAP) 120/80 (93) Pulse Ox 100 O2 Delivery Room Air Capillary Refill : Less Than 3 Seconds Height, Weight, BMI Height: 5'7.00" Weight: 183lbs. 0oz. 83.162599ci; 28.0 BMI Method:Stated General Appearance: No Apparent Distress, WD/WN, Anxious HEENT: PERRL/EOMI, Pharynx Normal, Moist Mucous Membranes Neck: Full Range of Motion, Normal Inspection, Non Tender, Supple Cardiovascular: Regular Rate, Rhythm, No Edema Respiratory: Chest Non Tender, Lungs Clear, Normal Breath Sounds, No Accessory Muscle Use, No Respiratory Distress Gastrointestinal: Normal Bowel Sounds, No Organomegaly, Non Tender, Soft Back: Normal Inspection, No CVA Tenderness, No Vertebral Tenderness, Muscle Spasm (bilateral lumbar spine paraspinous muscles are tender to palpation. Left flank over the rib has a small round firm rubbery mobile nodule consistent with lipoma approximately 1 cm in diameter.) Extremity: Normal Capillary Refill, Normal Inspection, Normal Range of Motion, Non Tender, No Calf Tenderness, No Pedal Edema, Other (straight leg test unremarkable.) Neurologic/Psychiatric: Alert, Oriented x3, No Motor/Sensory Deficits, Normal Mood/Affect Skin: Normal Color, Warm/Dry Progress/Results/Core Measures Results/Orders Lab Results Laboratory Tests Test 06/16/18 23:56 Range/Units Urine Color YELLOW Urine Clarity CLEAR Urine pH 6 5-9 Urine Specific [place] 1.020 1.016-1.022 Urine Protein NEGATIVE NEGATIVE Urine Glucose (UA) NEGATIVE NEGATIVE Urine Ketones NEGATIVE NEGATIVE Urine Nitrite NEGATIVE NEGATIVE Urine Bilirubin NEGATIVE NEGATIVE Urine Urobilinogen NORMAL NORMAL MG/DL Urine Leukocyte Esterase 1+ H NEGATIVE Urine RBC (Auto) NEGATIVE NEGATIVE Urine RBC NONE /HPF Urine WBC 0-2 /HPF Urine Squamous Epithelial Cells 5-10 /HPF Urine Crystals NONE /LPF Urine Bacteria TRACE /HPF Urine Casts NONE /LPF Urine Mucus NEGATIVE /LPF Urine Culture Indicated NO My Orders Orders - KRYSTINA PATINO Ketorolac Injection (Toradol Injection) (06/17/18 00:00) Ua Culture If Indicated (06/16/18 23:52) Ct Lumbar Spine Wo (06/17/18 00:01) Medications Given in ED Current Medications Medications Dose Ordered Sig/Mathew Route Start Time Stop Time Status Last Admin Dose Admin Ketorolac Tromethamine 30 mg ONCE ONCE IM 06/17/18 00:00 06/17/18 00:01 DC 06/16/18 23:58 30 MG Vital Signs/I&O 06/16/18 23:31 Temp 96.9 Pulse 74 Resp 18 B/P (MAP) 120/80 (93) Pulse Ox 100 O2 Delivery Room Air Blood Pressure Mean: 93 Progress Progress Note : Time: 23:58 Progress Note Possible lumbago with sciatica in the right leg however it radiate beyond the knee. Straight leg raise test is unremarkable. She has no other red flag signs so we have offered her a CT scan now versus following up with primary care and she has chosen to do the CT tonight. We'll also get a urinalysis. Her lipoma is of no clinical significance tonight. No constitutional symptoms. Toradol 30 mg IM. Diagnostic Imaging Diagonstic Imaging: CT Plain Films/CT/US/NM/MRI: other (lumbar spine) Comments At L3/L4 there is a 2 mm posterior disc bulging. At L4/L5 there is a 3 mm posterior disc bulging. No acute findings otherwise. Reviewed: Reviewed [place] Study, Reviewed by Me Departure Impression Primary Impression: Lumbago Qualified Codes: M54.41 - Lumbago with sciatica, right side Additional Impression: Lipoma Qualified Codes: D17.1 - Benign lipomatous neoplasm of skin and subcutaneous tissue of trunk Disposition: HOME, SELF-CARE Condition: Stable Departure-Patient Inst. Decision time for Depature: 01:37 Referrals: PHILLIP DAVIS MD (PCP/Family) Primary Care Physician Patient Instructions: Low Back Pain (DC) Add. Discharge Instructions: Heat applied year back will be helpful. Use a back brace on the days that it helps. Start taking Naprosyn 2 capsules twice a day or ibuprofen 4 tablets 3 times a day on a scheduled basis for the next 2 weeks to help bring down the inflammation in your low back. You can also use Tylenol 1000 mg every 8 hours as needed. You can consider chiropractic, massage and/or follow-up with primary care for further options as needed. All discharge instructions reviewed with patient and/or family. Voiced understanding. KRYSTINA PATINO Jun 16, 2018 23:59
[2018-06-17] MEDS ORDERED: KETOROLAC 30 MG/ML VIAL IM ONE
[2018-06-17 00:26] LABS: BILIRUBIN,URINE NEGATIVE (NEGATIVE); CLARITY,URINE CLEAR; COLOR,URINE YELLOW; GLUCOSE, URINE (UA) NEGATIVE (NEGATIVE); KETONES,URINE NEGATIVE (NEGATIVE); LEUKOCYTE ESTERASE ,URINE 1+ (NEGATIVE); NITRITE,URINE NEGATIVE (NEGATIVE); PH,URINE 6 (5-9); PROTEIN,URINE NEGATIVE (NEGATIVE); UROBILINOGEN,URINE NORMAL (NORMAL)
[2018-06-17 00:31] LABS: BACTERIA,URINE TRACE /HPF; WBC,URINE 0-2 /HPF
[2018-06-17 01:48] VITALS: BP 120/80
--- NOTE | 2018-06-17 06:49 | Diagnostic Imaging Report ---
PROCEDURE: CT lumbar spine without contrast. TECHNIQUE: Multiple contiguous axial images were obtained through the lumbar spine without the use of intravenous contrast. Sagittal and coronal reformations were then performed. INDICATION: Medial back pain radiating to the right posterior lower extremity for three days. COMPARISON: CT abdomen from 08/28/2017 FINDINGS: There is transitional anatomy at the lumbosacral junction with sacralization of the L5 vertebral body. No acute fractures seen in the lumbar spine. Vertebral body heights and disc heights are preserved. There is mild narrowing of the L4-L5 neural foramina bilaterally, without high-grade stenosis seen in the spinal canal or neural foramina. Surrounding paraspinous soft tissues are unremarkable. IMPRESSION: 1. No acute osseous abnormalities seen in the lumbar spine. 2. Transitional anatomy at the lumbosacral junction. 3. Mild neuroforaminal narrowing at L4-L5 bilaterally without high-grade stenosis seen. Dictated by: Dictated on workstation # [id number]
== END 2018-06-17 01:49 | disposition home or self-care (01) ==
LOC: EDUNIT# 23:15 → ER 23:22
DX: M54.5 Low back pain (principal); D17.1 Benign lipomatous neoplasm of skin and subcutaneous tissue of trunk; M06.9 Rheumatoid arthritis, unspecified; Z90.710 Acquired absence of both cervix and uterus; Z79.51 Long term (current) use of inhaled steroids; Z98.890 Other specified postprocedural states; Z82.49 Family history of ischemic heart disease and other diseases of the circulatory system; Z98.84 Bariatric surgery status; Z90.89 Acquired absence of other organs; Z90.49 Acquired absence of other specified parts of digestive tract
CPT/HCPCS: 72131; 81000; 96372

== ENCOUNTER → 2019-04-07 | Outpatient (CLI) | payer OTHER ==
--- NOTE | 2019-04-07 16:14 | Diagnostic Imaging Report ---
EXAMINATION: Left elbow at 3:25 p.m. INDICATION: Pain and swelling for 3-4 years. Three views were obtained. There are no prior studies available for comparison. FINDINGS: There is no fracture, dislocation, or acute bony abnormality evident. However, the lateral view of the elbow joint does show that the posterior fat pad is elevated. This finding is usually related to fluid/hemorrhage within the joint space. This can be seen with an occult fracture of the elbow joint. However, as there is no history of trauma, there may be a joint effusion present. If further imaging is desired, then MRI would be recommended. The soft tissues are otherwise unremarkable. IMPRESSION: The elevation of the posterior fat pad does suggest that there is fluid/hemorrhage within the joint space, although there is no sign of a fracture. If further evaluation is desired, then MRI would be recommended. Dictated by: Dictated on workstation # [id number]
== END ==
LOC: RAD 15:13
PROVIDERS: ATTEND Internal Medicine Rheumatology
DX: M25.422 Effusion, left elbow (principal)
CPT/HCPCS: 73080

== ENCOUNTER → 2019-04-15 | Outpatient (CLI) | payer OTHER ==
--- NOTE | 2019-04-15 13:04 | Diagnostic Imaging Report ---
PROCEDURE: MRI left upper extremity without contrast. TECHNIQUE: Multiplanar, multisequence non contrast-enhanced MRI of the left upper extremity was accomplished. INDICATION: Left elbow pain and swelling. No known injury. COMPARISON: Radiographs from 04/07/2019. FINDINGS: No acute fracture is seen in the left elbow. Alignment appears normal. There is a [id number] left elbow joint effusion. No cortical erosions are seen. There is motion artifact on multiple sequences. The ulnar collateral ligament appears intact. The radial ligament complex appears intact. The origins of the common extensor and common flexor tendons appear normal. The distal brachialis and biceps tendons appear intact. No muscular atrophy is seen. There is no focal muscular edema. No soft tissue masses or fluid collections are seen. The median nerve is mildly subluxed from the cubital tunnel due to the joint effusion, with mildly increased fluid signal. The radial and median nerves are unremarkable. IMPRESSION: 1. Wmorybau-lq-[id number] left elbow joint effusion. This is nonspecific. If clinically indicated, joint aspiration should be considered. 2. No acute fracture is seen in the left elbow. 3. No ligament or tendon tear is seen. 4. Mild subluxation of the ulnar nerve from the cubital tunnel due to the joint effusion. Dictated by: Dictated on workstation # [id number]
== END ==
LOC: RAD 11:52
PROVIDERS: ATTEND Internal Medicine Rheumatology
DX: M25.422 Effusion, left elbow (principal)
CPT/HCPCS: 73221